=== PATIENT | female | born 1950 | race Caucasian/White ===

== ENCOUNTER 2023-06-13 13:56 | Outpatient (AMB) | payer MEDICARE, SELFPAY ==
--- NOTE | 2023-06-13 14:33 | HO.SPINEOV ---
Intake Intake Visit Reasons: lower back pain Intake Note: Ms. Troy is here today c/o low back pain. MRI done @ [facility]. Gas Engineer Required: No Assessment & Plan Assessment & Plan (1) Lumbar stenosis with neurogenic claudication: Code(s): M48.062 - Spinal stenosis, lumbar region with neurogenic claudication Plan Dear colleague Thank you for referring Janna Troy to the office today with a chief complaint of bilateral leg pain with walking and standing. HPI: This 73-year-old female is complaining of bilateral leg pain with walking and standing for more than a year. The symptoms started after a hip replacement. She can only stand for short periods of time or work for short distances before she has to sit down. She takes a scooter in the grocery store nowadays to avoid walking. 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 Sitting down or laying down relieves her symptoms. She denies numbness or weakness. She saw a service center coordinator who told her was SI joint related. PMH: Hypertension, hypothyroidism, left hip replacement, hysterectomy, appendectomy Medications: Levothyroxine, omeprazole, spironolactone, warfarin, metoprolol, gabapentin Allergies: NKDA Social history: She lives with her son and 2 grandchildren. She has a nonsmoker Physical Exam: Pleasant female. She ambulates with a cane. Neurological exam reviews no deficits from motor sensation or reflexes. Straight leg raise is negative bilaterally. Radiological Studies: MRI done at [facility] on on 10/05/2022 shows moderate central spinal stenosis at L3-4 and L4-5. My observation is in disagreement with the MRI report. Impression/Plan: This 73-year-old female suffering from neurogenic claudication due to lumbar spinal stenosis L3-4 and L4-5. I offered her a lumbar laminotomy of those levels. She wants to discuss my plan with you and will return to my clinic if she wants to proceed. Thank you for allowing me to participate in your patients care. total time spent was 50 minutes in counseling ,coordination of plan, personal review of imaging, surgical decision making and subsequent plan Lee Warren MD, PhD Spine Fellowship Trained Neurosurgeon Director, [facility] Coding Level of Care Code New Pt Level 4 (39142) Diagnoses Lumbar stenosis with neurogenic claudication M48.062
== END 2023-06-13 15:49 | disposition home or self-care (01) ==
PROVIDERS: PCP Internal Medicine; Referring Provider Internal Medicine; Visit Provider Neurological Surgery
DX: M48.062 Spinal stenosis, lumbar region with neurogenic claudication (principal)
CPT/HCPCS: 99204

== ENCOUNTER → 2023-06-13 13:56 | Outpatient (BNVA) | payer MEDICARE, SELFPAY | PROVIDERS: PCP Internal Medicine; Referring Provider Internal Medicine; Visit Provider Neurological Surgery | DX: M48.062 Spinal stenosis, lumbar region with neurogenic claudication (principal) | CPT/HCPCS: 99202 ==

== ENCOUNTER 2023-08-01 13:25 | Outpatient (AMB) | payer MEDICARE, SELFPAY ==
--- NOTE | 2023-08-01 13:31 | MHC.OFFVIS ---
Intake Intake Visit Reasons: follow up Physiotherapist'S Assistant Required: No Assessment & Plan Assessment & Plan (1) Lumbar stenosis with neurogenic claudication: Code(s): M48.062 - Spinal stenosis, lumbar region with neurogenic claudication Plan Janna is a pleasant 73-year-old female who comes in today as a follow-up after being initially evaluated by the attending neurosurgeon Dr. Warren. After he reviewed her films and history/physical he offered her a L3-4, L4-5 laminotomy to address her spinal stenosis. At the time (06/13/23) Janna reported that she wanted to take some time to think about it and review her options. She states that she returns to our office today in follow-up because her bilateral leg pain and pain with walking continues to worsen on a day-to-day basis. She feels she is ready to undergo a surgical solution to help solve her problem. We again discussed the L3-4 and L4-5 laminotomy that was offered by Dr. Warren last month. She is agreeable to this. I had her scheduled for 10/11/2023 for this surgery. She brought her films from [facility] and I left them in an envelope on Dr. Warren desk. She understands that she will need to undergo a pre anesthesia check appointment which will be provided to her prior to her surgery, and she will be mailed out an envelope with details of her procedure. Janna was given risk and benefits of surgery including but not limited to infection, hematoma, nerve injury, durotomy, weakness, bowel/bladder injury, persistent pain, as well as the option to continue with conservative treatment and patient wishes to proceed with surgery. She is aware they should stop her Warfarin 5 days prior to surgery, and should stop all NSAIDs 7 days before surgery. All questions were answered to the best of our ability. If there is anything about this patients medical history that we have overlooked or concerns you have about us proceeding with surgery we would appreciate any input you can offer. Total amount of time spent in this visit was 20 minutes in discussion of symptoms, MRI imaging results and subsequent plan of care Jef Warren MD,PhD [facility] Coding Level of Care Code Est Pt Level 3 (58494) Diagnoses Lumbar stenosis with neurogenic claudication M48.062
== END 2023-08-01 13:58 | disposition home or self-care (01) ==
PROVIDERS: PCP Internal Medicine; Visit Provider Physician Assistant
DX: M48.062 Spinal stenosis, lumbar region with neurogenic claudication (principal)
CPT/HCPCS: 99213

== ENCOUNTER → 2023-08-01 13:25 | Outpatient (BNVA) | payer MEDICARE, SELFPAY | PROVIDERS: PCP Internal Medicine; Visit Provider Physician Assistant | DX: M48.062 Spinal stenosis, lumbar region with neurogenic claudication (principal) | CPT/HCPCS: 99212 ==

== ENCOUNTER 2023-09-24 14:28 | Outpatient (REF) | payer MEDICARE, SELFPAY ==
[2023-09-24 14:45] LABS: MANUAL DIFF FLAG NO
[2023-09-24 14:55] LABS: Basophils Absolute Auto 0.1 X10*3/uL (0.0-0.2); Basophils Percent Auto 0.9 % (0-2); Eosinophils Absolute Auto 0.2 X10*3/uL (0.0-0.4); Eosinophils Percent Auto 3.8 % (0-4); Hematocrit 39.4 % (37.0-47.0); Imm Gran Abs Auto 0.01 X10*3/uL (0.00-0.03); Imm Gran Pct Auto 0.2 % (0.0-0.4); Lymphocytes Percent Auto 19.7 % (20-40); Mean Corpuscular Volume 90.8 fL (80.0-98.0); Mean Platelet Volume 9.9 fL (9.4-12.3); Monocytes Absolute Auto 0.5 X10*3/uL (0.1-1.2); Monocytes Percent Auto 8.7 % (2-11); Neutrophils Absolute Auto 3.5 x10*3/uL (2.0-8.3); Neutrophils Percent Auto 66.7 % (45-73); Platelet Count 360 X10*3/uL (160-400); Red Blood Count 4.34 X10*6/uL (4.20-5.50); Red Cell Distribution Width 13.4 % (11.0-16.0); White Blood Count 5.3 X10*3/uL (4.8-10.8)
[2023-09-24 15:33] LABS: Alanine Aminotransferase 16 U/L (0-31); Albumin Level 4.1 g/dL (3.5-5.0); Alkaline Phosphatase 53 U/L (39-117); Anion Gap 15 (12-20); Aspartate Amino Transferase 17 U/L (5-31); Bilirubin Total 0.6 mg/dL (0.0-1.0); Blood Urea Nitrogen 18 mg/dL (9-16); Calcium 9.9 mg/dL (8.4-10.2); Carbon Dioxide 24 mmol/L (22-29); Chloride 103 mmol/L (96-108); Estimated Glomerular Filt Rate 38; Glucose Random 97 mg/dL (60-115); Potassium 4.8 mmol/L (3.3-5.1); Sodium 137 mmol/L (135-145); Total Protein 7.9 g/dL (6.5-8.0)
[2023-09-24 17:53] LABS: Estimated Average Glucose 126 mg/dL
== END 2023-09-24 14:29 | disposition home or self-care (01) ==
LOC: HO.LAB 14:28
PROVIDERS: PCP Internal Medicine; Visit Provider Internal Medicine
DX: E11.9 Type 2 diabetes mellitus without complications (principal); K50.90 Crohn's disease, unspecified, without complications
CPT/HCPCS: 36415; 80053; 83036; 85025

== ENCOUNTER → 2023-09-27 13:09 | Outpatient (BNV) | payer MEDICARE, SELFPAY | PROVIDERS: PCP Internal Medicine; Visit Provider Internal Medicine | DX: R00.1 Bradycardia, unspecified (principal); I45.10 Unspecified right bundle-branch block | CPT/HCPCS: 93010 ==

== ENCOUNTER → 2023-10-08 09:04 | Outpatient (REF) | payer MEDICARE, SELFPAY ==
--- NOTE | 2023-10-08 09:14 | CA_ITS ---
Transthoracic Echocardiogram Patient (Last, First, Middle): Janna Troy, Gender: Female Date of : 1950 Age: 73 Procedure Date: 10/08/2023 Procedure Type: Transthoracic Echocardiogram Location: OP Height: 152.4 cm Weight: 92.53 kg BSA: 1.88 m2 Heart Rate: 51 bpm BP: 120 / 90 mmHg Software Business Analyst: MARIA R Referring MD: Lee Warren MD PhD Symptoms: I49.9 CA ARRHYTHMIA Study Quality: Fair ECG Rhythm: Bradycardia Conclusions: - The left ventricular systolic function is normal. The calculated ejection fraction is 57% by biplane method. - There is mildly increased left ventricular wall thickness. - There is mild mitral valve regurgitation. Findings Left Ventricle Normal left ventricular cavity size. There is mildly increased left ventricular wall thickness. The left ventricular systolic function is normal. The calculated ejection fraction is 57% by biplane method. There is no evidence of regional wall motion abnormalities. Diastolic function is normal for age. LV peak GLS -16.1% (slightly reduced). Right Ventricle Normal right ventricular cavity size. There is mildly decreased right ventricular systolic function. Atria The left atrium is mildly dilated. The right atrium is normal in size. Aortic Valve There is a normal trileaflet aortic valve. There is no aortic valve stenosis. There is no aortic valve regurgitation. Mitral Valve The mitral valve appears normal. There is mild mitral valve regurgitation. There is no mitral valve stenosis. Pulmonic Valve The pulmonic valve is likely normal. Tricuspid Valve Normal tricuspid valve structure. There is trace tricuspid valve regurgitation. There is no evidence of pulmonary hypertension. Great Vessels The asc aorta is normal in size. Venous The inferior vena cava is normal in size and collapses greater than 50% with inspiration. Pericardium/Pleural There is no evidence of pericardial effusion. Prior Study Comparison No prior study available for comparison. Measurements 2D Linear Measurements IVSd: 1.14 0.6-0.9/0.6-1.0 cm LVIDd: 4.91 3.9-5.3/4.2-5.9 cm LVIDd Index: 2.61 2.4-3.2/2.2-3.1 cm/m2 LVIDs: 3.47 2.0-3.6 cm LVPWd: 1.03 0.7-1.1 cm LA Diam: 5.10 2.7-3.8/3.0-4.0 cm LAIDs Index: 2.71 1.5-2.3 cm/m2 LV Mass: 245.99 67-162/88-224 g LV Mass Index: 130.84 43-95/49-115 g/m2 LVOT Diam: 2.10 3.0+(-)1.3 cm 2D Systolic Function EF 4C: 50.00 >55% EF 2C: 62.50 >55% EF BiP: 56.50 >55% Mitral Valve MV Pk E: 0.62 MV PK A: 0.78 MV Decel Time: 238.00 E/A: 0.80 E'Lateral: 6.85 E'Medial: 4.57 E/E' Med: 13.50 E/E' Lat: 9.00 PHT: 70.00 MVA PHT: 3.14 Decel Lawrence: 2.59 Aortic Valve AoV Pk Liam: 1.26 AoV Mn Liam: 0.89 AoV VTI: 0.32 AoV Pk Grad: 6.00 Aov Mn Grad: 4.00 CHRISTOPHER Cont.VTI: 2.17 LVOT LVOT Pk Liam: 0.78 LVOT Mn Liam: 0.55 LVOT VTI: 0.20 LVOT Pk Grad: 2.00 LVOT Mn Grad: 1.00 LVOT Diam: 2.10 LVOT Area: 3.46 Diastolic Function MV Pk E: 0.62 MV Pk A: 0.78 E/A: 0.80 E'Medial: 4.57 E/E' Med: 13.50 E' Laterial: 6.85 E/E' Lat: 9.00 Right Ventricle TAPSE (mm): 18.40 TVS' Liam: 8.16 Tricuspid Valve TR Pk Liam: 2.42 TR Pk Grad: 23.00 RA Press: 3.00 RVSP: 26.00 Great Vessels Aorta Sinus of Valsalva: 3.10 2.0-3.5 cm Ao Asc: 3.40 2.1-3.4 cm Pulmonary Valve PV Pk Liam: 0.78 Peak PV Grad: 2.00 Updated in Other Vendor System with Status of Final Jhony Cabrera MD electronically signed on 10/08/2023 11:28:13 AM with status of Final
== END ==
LOC: HO.CARD 09:04
PROVIDERS: PCP Internal Medicine; Visit Provider Neurological Surgery
DX: I49.9 Cardiac arrhythmia, unspecified (principal)
CPT/HCPCS: 93306; 93356

== ENCOUNTER → 2023-10-08 09:14 | Outpatient (BNV) | payer MEDICARE, SELFPAY | PROVIDERS: PCP Internal Medicine; Visit Provider Internal Medicine | DX: I34.0 Nonrheumatic mitral (valve) insufficiency (principal) | CPT/HCPCS: 93306; 93356 ==

== ENCOUNTER 2023-10-11 09:00 | Day surgery (SDC) | payer MEDICARE, SELFPAY ==
[2023-09-27 12:30] VITALS: BP 124/59; PULSE 58; RESP 16; O2SAT 96; BMI 39.8
--- NOTE | 2023-09-27 13:09 | ECG_ITS ---
Test Reason : preop Blood Pressure : / mmHG Vent. Rate : 058 BPM Atrial Rate : 058 BPM P-R Int : 172 ms QRS Dur : 106 ms QT Int : 418 ms P-R-T Axes : 048 -17 042 degrees QTc Int : 410 ms Sinus bradycardia Incomplete right bundle branch block ST & T wave abnormality, consider anterolateral ischemia Abnormal ECG No previous ECGs available Referred By: Rosie King Electronically Signed By:MAGUI THOMPSON
--- NOTE | 2023-10-10 09:34 | P.CONAN_ITS ---
Documented by User: Comfort Lundberg NP 10/10/23 09:43 HPI - Anesthesia Eval Consult details Narrative: 73yo F for L3-4,L4-[address] King in [facility] for PE/DVT Moderate risk STOP-Bang [facility] Active Problems Active Problems: All Active Problems Lumbar stenosis with neurogenic claudication (Acute) Past Medical History Medical History Walker as ambulation aid Arthritis Hx of transfusion of whole blood Hypothyroidism Hiatal hernia GERD (gastroesophageal reflux disease) HTN (hypertension) Anxiety Peripheral neuropathy Hx pulmonary embolism Hx of deep venous thrombosis Slow to wake up after anesthesia Hx of chronic ulcerative colitis Hx of skin cancer, basal cell Hx of cancer of uterus Surgical History Surgical History (Updated 09/27/23 @ 12:19 by Micheline Albarado, CLARICE) Hx of colonoscopy Hx of tonsillectomy Hx of appendectomy Hx of hysterectomy History of left hip replacement Social History Social History (Updated 09/27/23 @ 12:44 by Micheline Albarado RN) Household Members: Family Housing: House Are you a primary health care coordinator to a significant other at home: No Do you presently have visiting nurse or other home services: No Patient Tobacco Use Status: Never used Tobacco Use of substances other than those prescribed or required for medical reasons: No Have you been hit, kicked, punched, or otherwise hurt by someone within the past year? If so, by whom?: No Spiritual Healthcare Practices: none Jehovah'S Witness Healthcare Practices: none Cultural Healthcare Practices: none Are you DNR?: No Advance Directives: No Advance Directives Information Provided: Yes Advance Directives on File: No Recently lost weight without trying: No Nutrition Risks: No Nutritional Risk Meds Allergies Allergy/AdvReac Type Severity Reaction Status Date / Time NSAIDS (Non-Steroidal Allergy Severe Weakness, Verified 09/27/23 12:13 Anti-Inflamma cannot move adhesive tape AdvReac Severe Blistering Verified 09/27/23 12:17 of skin, rash, all tape adhesives morphine AdvReac Severe Anxiety Verified 09/27/23 12:13 nitroglycerin AdvReac Severe Chest Verified 09/27/23 12:13 Pain, SOB Home Medications ?Medication ?Instructions ?Recorded ?Confirmed ?Last Taken ?Type gabapentin 100 mg capsule 300 mg PO BEDTIME 09/26/23 09/27/23 Unknown History levothyroxine 50 mcg tablet 50 mcg PO BEDTIME 09/26/23 09/27/23 Unknown History metoprolol succinate 100 mg 100 mg PO BEDTIME 09/26/23 09/27/23 Unknown History tablet,extended release 24 hr omeprazole 40 mg capsule,delayed 20 mg PO BEDTIME 09/26/23 09/27/23 Unknown History release spironolactone 50 mg tablet 50 mg PO BEDTIME 09/26/23 09/27/23 Unknown History apixaban 2.5 mg tablet (Eliquis) 2.5 mg PO BID 09/27/23 09/27/23 Unknown History Exam Height,Weight and Vital Signs: Height 5 ft Weight 92.533 kg Last Vital Signs Pulse 58 09/27/23 12:30 Resp 16 09/27/23 12:30 BP 124/59 L 09/27/23 12:30 Pulse Ox 96 09/27/23 12:30 O2 Del Method Room Air 09/27/23 12:30 Pertinent Lab Results Pertinent Lab Results: Laboratory Tests 09/24/23 14:38 WBC 5.3 Hgb 13.0 Hct 39.4 Plt Count 360 Sodium 137 Potassium 4.8 Chloride 103 Carbon Dioxide 24 BUN 18 H Creatinine 1.37 Narrative Narrative: EKG 09/2023 Vent. Rate : 058 BPM Atrial Rate : 058 BPM P-R Int : 172 ms QRS Dur : 106 ms QT Int : 418 ms P-R-T Axes : 048 -17 042 degrees QTc Int : 410 ms Sinus bradycardia Incomplete right bundle branch block ST & T wave abnormality, consider anterolateral ischemia Abnormal ECG No previous ECGs available ECHO 09/2023 Conclusions: - The left ventricular systolic function is normal. The calculated ejection fraction is 57% by biplane method. - There is mildly increased left ventricular wall thickness. - There is mild mitral valve regurgitation. Assessment and Plan Assessment Anesthesia Assessment: Chart Reviewed Documented by User: Daria De Luna MD 10/11/23 10:17 [facility] Past Medical History Medical History Walker as ambulation aid Arthritis Hx of transfusion of whole blood Hypothyroidism Hiatal hernia GERD (gastroesophageal reflux disease) HTN (hypertension) Anxiety Peripheral neuropathy Hx pulmonary embolism Hx of deep venous thrombosis Slow to wake up after anesthesia Hx of chronic ulcerative colitis Hx of skin cancer, basal cell Hx of cancer of uterus Family History Family history of problems with anesthesia: No Surgical History Surgical History (Updated 09/27/23 @ 12:19 by Micheline Albarado, CLARICE) Hx of colonoscopy Hx of tonsillectomy Hx of appendectomy Hx of hysterectomy History of left hip replacement History of Problems with Anesthesia: No Social History Social History (Updated 09/27/23 @ 12:44 by Micheline Albarado RN) Household Members: Family Housing: House Are you a primary health care coordinator to a significant other at home: No Do you presently have visiting nurse or other home services: No Patient Tobacco Use Status: Never used Tobacco Use of substances other than those prescribed or required for medical reasons: No Have you been hit, kicked, punched, or otherwise hurt by someone within the past year? If so, by whom?: No Spiritual Healthcare Practices: none Jehovah'S Witness Healthcare Practices: none Cultural Healthcare Practices: none Are you DNR?: No Advance Directives: No Advance Directives Information Provided: Yes Advance Directives on File: No Recently lost weight without trying: No Nutrition Risks: No Nutritional Risk Meds Allergies Allergy/AdvReac Type Severity Reaction Status Date / Time NSAIDS (Non-Steroidal Allergy Severe Weakness, Verified 09/27/23 12:13 Anti-Inflamma cannot move adhesive tape AdvReac Severe Blistering Verified 09/27/23 12:17 of skin, rash, all tape adhesives morphine AdvReac Severe Anxiety Verified 09/27/23 12:13 nitroglycerin AdvReac Severe Chest Verified 09/27/23 12:13 Pain, SOB Home Medications ?Medication ?Instructions ?Recorded ?Confirmed ?Last Taken ?Type gabapentin 100 mg capsule 300 mg PO BEDTIME 09/26/23 09/27/23 Unknown History levothyroxine 50 mcg tablet 50 mcg PO BEDTIME 09/26/23 09/27/23 Unknown History metoprolol succinate 100 mg 100 mg PO BEDTIME 04/17/24 04/18/24 Unknown History tablet,extended release 24 hr omeprazole 40 mg capsule,delayed 20 mg PO BEDTIME 09/26/23 09/27/23 Unknown History release spironolactone 50 mg tablet 50 mg PO BEDTIME 09/26/23 09/27/23 Unknown History apixaban 2.5 mg tablet (Eliquis) 2.5 mg PO BID 09/27/23 09/27/23 Unknown History Exam Airway Mallampati Class: IV TM Dist: >3cm Neck ROM: Full Assessment and Plan Assessment Anesthesia Assessment: Anesthesia Plan Discussed Final Anesthetic Review Family History of Problems with Anesthesia: No History of Problems with Anesthesia: No NPO: Yes ASA Class: III Final Preanesthetic Review: No Changes in Pt Med Stat, Meds/Allgs Chart Reviewed, Consent Obtained/Reviewed and Anes Risks/Benef Reviewed Patient Risk: Intermediate Procedure Risk: Intermediate Anesthetic Plan Anesthetic Plan: GA Disposition: Standard PACU
[2023-10-11] VITALS (16 sets, daily range): BP systolic 107–154; BP diastolic 42–78; PULSE 52–75; RESP 12–16; TEMP 36.1–36.6; O2SAT 94–100; BMI 40.2
--- NOTE | ~2023-10-11 | FL_ITS ---
EXAMINATION: XR FLUOROSCOPY WITH IMAGES CLINICAL INFORMATION: L3-L4, L4-L5 laminectomy, prone, right-sided approach. COMPARISON: None available. TECHNIQUE: Fluoroscopy Supervised By Dr. Kofi Warren. Fluoroscopy Time: 0 Cumulative Dose: 4.83 mGy-cm DAP: 0.744 Gy-cm2 Fluoroscopic Images: 0 FINDINGS: Surgical hardware overlies posterior aspect of lower lumbar spine on lateral view. Please refer to operative report for more detailed evaluation. FL/FL guidance in OR IMPRESSION: Fluoroscopy provided for intraoperative guidance. Please for to operative report for more detailed evaluation.
--- NOTE | 2023-10-11 07:00 | MHC.SHP ---
Pre-Procedural Eval Section A - 24 Hr Update-Section A only Date of Service: 10/11/23 The patient is an INPATIENT: No Changes since office visit: No Cold of Flu in the past 2 weeks, No New Medical Problems, No Changes in Medication and No Patient answered all questions The patient has been examined within 24 hours of the surgical procedure. The History & Physical has been completed within 30 days and I have reviewed it.: No Section B - Complete if H&P > 30 days Chief Complaint: Spinal stenosis, lumbar region with neurogenic Allergies: Allergies Allergy/AdvReac Type Severity Reaction Status Date / Time NSAIDS (Non-Steroidal Allergy Severe Weakness, Verified 09/27/23 12:13 Anti-Inflamma cannot move adhesive tape AdvReac Severe Blistering Verified 09/27/23 12:17 of skin, rash, all tape adhesives morphine AdvReac Severe Anxiety Verified 09/27/23 12:13 nitroglycerin AdvReac Severe Chest Verified 09/27/23 12:13 Pain, SOB Review of Systems Sugical H&P ROS: Negative: Constitution, Cardiovascular, Respiratory, Neurological, Psychiatric, Hem-Onc, Allergic/Immunologic, Gastrointestinal, Genitourinary, Musculoskeletal, Integumentary, Endocrine and Eyes/Ears/Nose/Throat Exam Surgical H&P Exam: Not Evaluated: HEENT, Not Evaluated: Heart, Not Evaluated: Lungs, Not Evaluated: Extremities, Not Evaluated: Abdomen, Not Evaluated: Skin and Not Evaluated: Neurological Plan Diagnosis/Plan: Unchanged L3-4, L4-5 decompression Time Spent With Patient Time: Total time managing care of this patient today _6___ minutes.
[2023-10-11] MEDS: Lactated Ringers 1,000 ML 100 ML IVCONT (10:14)
[2023-10-11] MEDS: Gabapentin 300 MG CAPSULE PO (10:15)
--- NOTE | 2023-10-11 10:50 | P.DS_ITS ---
DS: Providers Provider Date of Service: 10/11/23 Date of discharge: 10/11/23 Primary care physician: Akshat Jacobs MD Admitting clinician: Lee Warren DS: Diagnosis Discharge Diagnosis (1) Lumbar stenosis with neurogenic claudication: Status: Acute DS: Summary Time Attestation Discharge Coordination Time (in mins): 6 Quality: Safe Use of Opioids Does Pt have an Active Cancer Diagnosis on the Problem List?: No Quality: Stroke Does the patient have a stroke diagnosis?: No Physical Exam Vital Signs: Vital Signs: Last Vital Signs Temp 97.9 F 10/11/23 09:45 Pulse 52 10/11/23 09:45 Resp 16 10/11/23 09:45 BP 154/70 H 10/11/23 09:45 Pulse Ox 97 10/11/23 09:45 O2 Del Method Room Air 10/11/23 09:45 BMI result Body Mass Index 40.2 Discharge Plan Discharge Patient Disposition: Home, Self-Care Referrals: Akshat Jacobs MD [Primary Care Provider] - 1 Week Discharge Medications: New docusate sodium [Colace] 100 mg capsule 100 mg PO BID Qty: 20 0RF oxycodone 5 mg tablet 5 mg PO Q4H PRN (Reason: pain) Qty: 30 0RF Rx Instructions: Partial Fill upon patient request. Continued metoprolol succinate 100 mg tablet extended release 24 hr 100 mg PO BEDTIME omeprazole 40 mg capsule,delayed release(DR/EC) 20 mg PO BEDTIME levothyroxine 50 mcg tablet 50 mcg PO BEDTIME gabapentin 100 mg capsule 300 mg PO BEDTIME spironolactone 50 mg tablet 50 mg PO BEDTIME Held Eliquis 2.5 mg Tablet 2.5 mg PO BID Hold Instructions: Resume on 10/14/23. you may resume post op day 3 Discharge Orders: Discharge Order (Routine); Ordered 10/11/23 Ordered By: Owen Pinto Diet: Advance to usual diet Activity on Discharge: As tolerated Activity Restrictions/Additional Instructions: After your spinal surgery we ask you to observe the following restrictions/guidelines: Activity: It is normal to feel some discomfort as you increase your activity, but that will improve with time. We ask you avoid heavy lifting or acitivities that cause pain. As a general rule, 8lbs is a safe limit for lifting right after surgery. Walk as much as you feel comfortable but not to exhaustion. You will feel extra tired the first few days after surgery. Stay well hydrated. It is OK to walk up and down stairs You may return to driving when you are off narcotics (such as vicodin, oxycodone, dilaudid, etc), and you are back to normal functional capacity. If you have any concerns please check with office before driving. Return to work is specific to each patient and each surgery, so please speak with your doctor/PA at first follow up. Please bring paperwork such as FMLA at that time if you need it filled out. Medications: You may resume Eliquis 3 days after surgery For optimum pain control, it is best to start with a combination of 500 mg of Tylenol every 4 hours with 600 mg of Motrin every 8 hours, and use narcotics as needed in between for breakthrough pain. We will give you a short supply of narcotics after surgery (usually one weeks worth). If you need more please call the office but do not use more than prescribed. You will need to give our office 48 hours notice if you need narcotics refilled and we do not fill narcotics on weekends or evenings. If you are on a narcotic, it is a good idea to take a stool softener such as colace or senna to avoid constipation If you take blood thinner such as aspirin, Plavix, Coumadin, Effient, Eliquis etc for conditions such as Afib, DVT, Pulmonary embolus, coronary disease, stents etc please speak with your surgeon about specific details as to when you can resume these medications. You can resume NSAIDs on post op day 1 (eg: Motrin, Naproxen, etc). Follow up: Please call the office, , after surgery to arrange a 3 week follow up for wound check. Wound Care: You may remove your dressing on the first day after surgery. ?You may ?leave open to air. Please do not remove the steri strips underneath. they will fall off on their own in one week. IT IS NORMAL FOR THE WOUND TO OOZE OR BE BLOODY FOR A FEW DAYS AFTER SURGERY. ?IF THIS HAPPENS JUST PLACE NEW DRESSING OVER IT TO AVOID STAINING CLOTHES. You may shower on post op day # 1 We ask that you do not let the water soak the wound. If it does get wet, just towel dry lightly. Please do not scrub your incision or place any type of chemical/ointment on the wound. No tub baths, pools or jacuzzis for one month. If you have any leaking or redness from your wound, or fevers, please call office Print Language: American
--- NOTE | 2023-10-11 11:45 | P.OP_ITS ---
Operative Note Operative Note Date of Service: 10/11/23 Narrative: Preoperative Diagnosis: L3-4 L4-5 spinal stenosis/lateral recess stenosis Operation: L3-4 L4-5 Laminotomy, Partial facetectomy and foraminotomy with use of microscope Consent Informed Consent was obtained for this operation. I have explained the nature, purpose and benefits of the operation. I have discussed the risks and benefit of the operation including possible complications or adverse events with patient/family. Alternative(s) were discussed with the patient with their relative benefits and risks as well as the consequences of not accepting the operation were included in obtaining consent. Surgeon: MAJO LOPEZ MD, PHD Procedure Assisted By: Owen Greenwood Description of Procedure This patient is suffering from neurogenic claudication. MRI shows moderate stenosis L3-4 and L4-5. The patient was offered a decompression. The procedure complications were explained. The patient was consented. The patient was brought to the operating room and endotracheally intubated. The patient was turned in prone position on the Beck frame. Prep and drape was done followed by timeout. The Physician customer support assistant provided access. A mid lumbar incision was made followed by release of the paravertebral muscle on the right side to expose the L3-4 and L4-5 lamina and facet joints. An intraoperative x-ray was obtained to confirm the correct level. The microscope was brought in. I took over the procedure. The high-speed drill was used to do a L3-4 laminotomy until flavum ligament was reached. A #2 Kerrison was used to expand the laminotomy near flush to the pedicles and to include a partial facetectomy. The flavum ligament was opened and resected with a #3 Kerrison to decompress the underlying thecal sac. The flavum ligament was removed to decompress the lateral recess and the exiting L4 nerve roots. The stenosis was less than expected. I was able to reach contralaterally with a long nerve hook and did not feel any severe compression on the contralateral side. I turned my attention to the L4-5 area. An L4-5 hemilaminotomy was done. The flavum ligament was opened and resected to expose the underlying thecal sac and exiting nerve root. The exiting nerve root was unroofed from flavum ligament but again no severe compression was found. I turned the patient contralaterally. I undercut the spinous process and remote flavum ligament from the contralateral side to decompress that side. The microscope was removed. Hemostasis was done. The physician customer support assistant close the Incision in 2 layers. Steri-Strips were used to approximate incision. An OpSite with Tegaderm was used to cover the incision. All sponge needle counts were correct. Patient was extubated and transported in stable is to recovery room. Anesthesia: General Estimated Blood Loss (ml): 30 mL Complications: None Duration of Surgery: Under 60 Minutes Postoperative Plan: Discharge to home
[2023-10-11] MEDS: fentaNYL citrate/PF 100 MCG/2 ML VIAL 50 MCG IVPUSH ×2 (12:45→13:15)
== END 2023-10-11 15:34 | disposition home or self-care (01) ==
PROVIDERS: PCP Internal Medicine; Visit Provider Neurological Surgery
PROC: (CPT 63047; principal; 2023-10-11 11:30)
DX: M48.062 Spinal stenosis, lumbar region with neurogenic claudication (principal); G62.9 Polyneuropathy, unspecified; I10 Essential (primary) hypertension; Z86.711 Personal history of pulmonary embolism; Z86.718 Personal history of other venous thrombosis and embolism; M19.90 Unspecified osteoarthritis, unspecified site; Z79.01 Long term (current) use of anticoagulants; Z79.899 Other long term (current) drug therapy; Z99.89 Dependence on other enabling machines and devices; Z88.6 Allergy status to analgesic agent; Z88.5 Allergy status to narcotic agent; Z88.8 Allergy status to other drugs, medicaments and biological substances; L23.1 Allergic contact dermatitis due to adhesives; Z98.890 Other specified postprocedural states
CPT/HCPCS: 63047; 63048; 93005; J0131; J0690; J1100; J2405; J2704; J3010

== ENCOUNTER → 2023-10-11 09:00 | Outpatient (BNV) | payer MEDICARE, SELFPAY | PROVIDERS: PCP Internal Medicine; Visit Provider Neurological Surgery | DX: M48.062 Spinal stenosis, lumbar region with neurogenic claudication (principal) | CPT/HCPCS: 63047; 63048; 99499 ==

== ENCOUNTER 2023-11-01 10:38 | Outpatient (AMB) | payer MEDICARE, SELFPAY ==
--- NOTE | 2023-11-01 10:02 | A.SPINEOV_ITS ---
Intake Visit Reasons: 1st post op Intake Note: Ms. Troy is here today for her 1st post-op appointment. Legislative Aide Required: No Allergies NSAIDS (Non-Steroidal Anti-Inflamma Allergy (Severe, Verified 09/27/23 12:13) Weakness, cannot move adhesive tape Adverse Reaction (Severe, Verified 09/27/23 12:17) Blistering of skin, rash, all tape adhesives morphine Adverse Reaction (Severe, Verified 09/27/23 12:13) Anxiety nitroglycerin Adverse Reaction (Severe, Verified 09/27/23 12:13) Chest Pain, SOB Assessment & Plan Assessment & Plan (1) Status post lumbar spine surgery for decompression of spinal cord: Code(s): Z98.890 - Other specified postprocedural states Category: Medical Plan Procedure: L3-4 L4-5 Laminotomy, Partial facetectomy and foraminotomy Janna comes in today for her 1st postoperative visit. Unfortunately, Janna continues to report the same symptoms she had preoperatively. She has quite a bit of back pain with shooting pains into her bilateral lower extremities. She seems very discouraged during this visit. I attempted to encourage her that she is likely suffering from postoperative inflammation and reiterated that she has only a few weeks out from surgery. I discussed the surgery that she had using the spine model, and discussed postoperative inflammation and the postoperative healing course. It seems she has not been ambulating outside of her home very much, so she was encouraged to do so as this will help her postoperative healing course. I answered all of her questions to the best of my ability. No new neurological deficits. Patient ambulates with walker. Posterior incision site is closed, well healed, with no signs of drainage. We will follow-up with the patient in 6 weeks for her 2nd postoperative visit. Jef Warren MD,PhD [facility] Coding Level of Care Code Global (08682) Diagnoses Status post lumbar spine surgery for decompression of spinal cord Z98.890
== END 2023-11-01 11:00 | disposition home or self-care (01) ==
PROVIDERS: PCP Internal Medicine; Visit Provider Physician Assistant
DX: Z98.890 Other specified postprocedural states (principal)
CPT/HCPCS: 99024

== ENCOUNTER → 2023-11-01 10:38 | Outpatient (BNVA) | payer MEDICARE, SELFPAY | PROVIDERS: PCP Internal Medicine; Visit Provider Physician Assistant | DX: Z48.89 Encounter for other specified surgical aftercare (principal); Z98.890 Other specified postprocedural states | CPT/HCPCS: 99212 ==

== ENCOUNTER 2023-12-17 13:29 | Outpatient (AMB) | payer MEDICARE, SELFPAY ==
--- NOTE | 2023-12-17 13:31 | A.SPINEOV_ITS ---
Intake Visit Reasons: 2nd post-op Intake Note: Ms. Troy is here for her 2nd post op visit. Fancy Wire Drawer Required: No Allergies NSAIDS (Non-Steroidal Anti-Inflamma Allergy (Severe, Verified 12/17/23 13:33) Weakness, cannot move adhesive tape Adverse Reaction (Severe, Verified 12/17/23 13:33) Blistering of skin, rash, all tape adhesives morphine Adverse Reaction (Severe, Verified 12/17/23 13:33) Anxiety nitroglycerin Adverse Reaction (Severe, Verified 12/17/23 13:33) Chest Pain, SOB Assessment & Plan Assessment & Plan (1) Status post lumbar spine surgery for decompression of spinal cord: Code(s): Z98.890 - Other specified postprocedural states Category: Surgical Plan Operation: L3-4 L4-5 Laminotomy, Partial facetectomy and foraminotomy Janna comes in today for her 2nd postoperative visit. When I initially entered the room Janna seen quite distraught, and stated she feels exactly the same as she has since prior to surgery. What I began questioning about her symptoms she did admit that her shooting radiculopathy down the posterior aspect of her legs has subsided. She predominantly has difficulties with ambulation now, accompanied by some tenderness in her low back. She was encouraged that her issues with ambulation can continue to improve, however she will need to begin trying to be more active. Today she reports that it has been too hot for her to go outside and walk around the all. She is only really ambulating around her home. I believe her difficulties with ambulation may be directly related to her lack of mobility. I would like to have Janna sent for 6 weeks of physical therapy specifically for mobility, ADLs and very light strength training. No new neurological deficits. The patient ambulates with the assistance of a cane. I would like Janna to follow up with Dr. Warren after she completes her course of physical therapy so she may discuss potential avenues to pursue going forward for both healing, rehabilitation, and surgery. I did inform her that increasing her mobility will be of utmost importance to her recovery, and that her recovery can take all the way up to a year for her to see maximum benefit from the surgery. Jef Warren MD,PhD [facility] Orders: Orders PT Evaluation and Treatment Today Z98.890 - Other specified postprocedural states Coding Level of Care Code Global (99437) Diagnoses Status post lumbar spine surgery for decompression of spinal cord Z98.890
== END 2023-12-17 13:56 | disposition home or self-care (01) ==
PROVIDERS: PCP Internal Medicine; Visit Provider Physician Assistant
DX: Z98.890 Other specified postprocedural states (principal)
CPT/HCPCS: 99024

== ENCOUNTER → 2023-12-17 13:29 | Outpatient (BNVA) | payer MEDICARE, SELFPAY | PROVIDERS: PCP Internal Medicine; Visit Provider Physician Assistant | DX: Z48.89 Encounter for other specified surgical aftercare (principal) | CPT/HCPCS: 99212 ==

== ENCOUNTER 2024-09-10 12:09 | Outpatient (REF) | payer OTHER, SELFPAY ==
[2024-09-10 19:32] LABS: Erythrocyte Sedimentation Rate 25 MM/HR (0-20)
== END 2024-09-10 12:10 | disposition home or self-care (01) ==
LOC: HO.MANLDS 12:09
PROVIDERS: Visit Provider Internal Medicine
DX: M35.3 Polymyalgia rheumatica (principal)
CPT/HCPCS: 36415; 85652

== ENCOUNTER 2024-11-12 13:34 | Outpatient (REF) | payer OTHER, SELFPAY ==
--- OUTSIDE RECORDS SUMMARY | 2024-11-12 13:45 | XMS_ITS | Data Portability ---
Author Organization [facility], Telehealth Patient Home Address [address] [place] [address] Assessment Encounter Date Assessment Date Assessment LastModified by Organization Details LastModified Time 11/19/2023 11/19/2023 Patient presente d to office today for their Medicare Annual Wellness Visit. Education was provided on healthy nutrition, including a diet rich in fruits and vegetables, minimizing simple carbohydrates, salt, and saturated fats. Encouraged regular cardiovascular exercise such as walking at least 30 minutes daily, 5 times per week. Emphasized preventive health measures and educated pt on fall prevention and community-based lifestyle interventions to help reduce health risks and promote healthy living. Not available 11/16/2023 10:18:52 05/05/2024 05/05/2024 [id number] [place] [id number] (MARKETING TEAM LEAD) MDM MODERATE MUST MEET 2 OUT OF 3 ELEMENTS: PROBLEMS, DATA OR RISK ELEMENT 1: PROBLEMS ADDRESSED 1 OR MORE CHRONIC ILLNESS WITH EXACERBATION OR 2 OR MORE STABLE CHRONIC ILLNESSES OR 1 UNDIAGNOSED NEW PROBLEM OR 1 ACUTE ILLNESS W/SYMPTOMS OR 1 ACUTE COMPLICATED INJURY ELEMENT 2: DATA MUST MEET 1 OF 3 CATEGORIES CATEGORY 1: REVIEW OF PRIOR EXTERNAL NOTES, REVIEW OF RESULTS, ORDERING OF EACH TEST, ASSESSMENT REQUIRING INDEPENDENT HISTORIAN OR CATEGORY 2: INDEPENDENT INTERPRETATION OF TESTS BY ANOTHER PHYSICIAN OR SPECIALIST OR CATEGORY 3: DISCUSSION OF MGT OR TEST INTERPRETATION W/EXTERNAL PHYSICIAN OR SPECIALIST ELEMENT 3: RISK RISK OF COMPLICATIONS AND/OR MORBIDITY OR MORTALITY OF PATIENT MANAGEMENT PROVIDER MUST THOROUGHLY DOCUMENT EACH ELEMENT THAT IS COVERED Not available 05/05/2024 16:16:14 08/06/2024 08/06/2024 [id number] [place] [id number] (MARKETING TEAM LEAD) MDM MODERATE MUST MEET 2 OUT OF 3 ELEMENTS: PROBLEMS, DATA OR RISK ELEMENT 1: PROBLEMS ADDRESSED 1 OR MORE CHRONIC ILLNESS WITH EXACERBATION OR 2 OR MORE STABLE CHRONIC ILLNESSES OR 1 UNDIAGNOSED NEW PROBLEM OR 1 ACUTE ILLNESS W/SYMPTOMS OR 1 ACUTE COMPLICATED INJURY ELEMENT 2: DATA MUST MEET 1 OF 3 CATEGORIES CATEGORY 1: REVIEW OF PRIOR EXTERNAL NOTES, REVIEW OF RESULTS, ORDERING OF EACH TEST, ASSESSMENT REQUIRING INDEPENDENT HISTORIAN OR CATEGORY 2: INDEPENDENT INTERPRETATION OF TESTS BY ANOTHER PHYSICIAN OR SPECIALIST OR CATEGORY 3: DISCUSSION OF MGT OR TEST INTERPRETATION W/EXTERNAL PHYSICIAN OR SPECIALIST ELEMENT 3: RISK RISK OF COMPLICATIONS AND/OR MORBIDITY OR MORTALITY OF PATIENT MANAGEMENT PROVIDER MUST THOROUGHLY DOCUMENT EACH ELEMENT THAT IS COVERED Not available 08/06/2024 13:59:59 08/22/2024 08/22/2024 [id number] [place] [id number] (MARKETING TEAM LEAD) MDM MODERATE MUST MEET 2 OUT OF 3 ELEMENTS: PROBLEMS, DATA OR RISK ELEMENT 1: PROBLEMS ADDRESSED 1 OR MORE CHRONIC ILLNESS WITH EXACERBATION OR 2 OR MORE STABLE CHRONIC ILLNESSES OR 1 UNDIAGNOSED NEW PROBLEM OR 1 ACUTE ILLNESS W/SYMPTOMS OR 1 ACUTE COMPLICATED INJURY ELEMENT 2: DATA MUST MEET 1 OF 3 CATEGORIES CATEGORY 1: REVIEW OF PRIOR EXTERNAL NOTES, REVIEW OF RESULTS, ORDERING OF EACH TEST, ASSESSMENT REQUIRING INDEPENDENT HISTORIAN OR CATEGORY 2: INDEPENDENT INTERPRETATION OF TESTS BY ANOTHER PHYSICIAN OR SPECIALIST OR CATEGORY 3: DISCUSSION OF MGT OR TEST INTERPRETATION W/EXTERNAL PHYSICIAN OR SPECIALIST ELEMENT 3: RISK RISK OF COMPLICATIONS AND/OR MORBIDITY OR MORTALITY OF PATIENT MANAGEMENT PROVIDER MUST THOROUGHLY DOCUMENT EACH ELEMENT THAT IS COVERED Not available 08/22/2024 15:33:55 09/12/2024 09/12/2024 [id number] [place] [id number] (MARKETING TEAM LEAD) : MDM LOW MUST MEET 2 OF 3 ELEMENTS: PROBLEMS, DATA OR RISK ELEMENT 1: PROBLEMS ADDRESSED (LOW): 2 OR MORE SELF-LIMITED OR MINOR PROBLEMS OR 1 STABLE CHRONIC ILLNESS OR 1 ACUTE UNCOMPLICATED ILLNESS OR INJURY ELEMENT 2: DATA TO BE REVISED AND ANALYZED (LOW) MUST MEET 1 OF 2 CATEGORIES: CATEGORY 1. REVIEW OF PRIOR EXTERNAL NOTES/RESULTS, ORDERING OF TEST(S) CATEGORY 2. ASSESSMENT REQUIRING INDEPENDENT HISTORIAN(S) INCLUDE WHO THE HISTORIAN IS AND RELATION TO PT AND WHY PT IS UNABLE TO GIVE COMPLETE HISTORY ELEMENT 3: RISK (LOW) RISK OF COMPLICATIONS AND/OR MORBIDITY OR MORTALITY OF PATIENT MANAGEMENT PROVIDER MUST THOROUGHLY DOCUMENT ALL OF THE ELEMENTS COVERED Not available 09/12/2024 11:42:06 Plan of Treatment Reminders Order Date Submit Date Provider Last Modified By Organization Details Last Modified Time Details Appointments FOLLOW UP 15 2024 03:45P M DR CONDON Not available Not available Not available Lab ESR (erythroc yte sedimenta tion rate), blood 2024 025 [facility], [address] [place] [address], [id number], 09/11/2024 13:04:35 ESR (erythroc yte sedimenta tion rate), blood 2024 025 [facility], [address] [place] [address], [id number], 09/11/2024 13:04:35 C-reactiv e protein, quantitat dax, serum or plasma 2024 025 [facility] (Outpatient), [address] [place] [address], [id number], 08/06/2024 14:15:15 ESR (erythroc yte sedimenta tion rate), blood 2024 025 [facility] (Outpatient), [address] [place] [address], [id number], 08/21/2024 15:36:43 CBC 2023 024 [facility] (Outpatient), [address] [place] [address], [id number], 07/26/2024 07:21:51 CMP, serum or plasma 2023 024 [facility] (Outpatient), [address] [place] [address], [id number], 07/26/2024 08:49:29 TSH, serum or plasma 2023 024 [facility] (Outpatient), [address] [place] [address], [id number], 05/05/2024 16:28:08 C-reactiv e protein, quantitat dax, serum or plasma 2023 024 [facility] (Outpatient), [address] [place] [address], [id number], 08/21/2024 14:47:23 ESR (erythroc yte sedimenta tion rate), blood 2023 024 [facility] (Outpatient), [address] [place] [address], [id number], 07/26/2024 09:46:26 CK (creatine kinase), total, serum 2023 024 [facility] (Outpatient), [address] [place] [address], [id number], 05/05/2024 16:28:08 lipid panel, blood 2023 024 [facility] (Outpatient), [address] [place] [address], [id number], 11/19/2023 14:11:13 hemoglobi n, gastroint estinal, stool 2023 024 [facility] (Outpatient), [address] [place] [address], [id number], 11/19/2023 14:11:14 CBC w/ auto diff 2023 024 [facility] (Outpatient), [address] [place] [address], [id number], 11/19/2023 14:11:14 CMP, serum or plasma 2023 024 [facility] (Outpatient), [address] [place] [address], [id number], 11/19/2023 14:11:14 Referral dermatolo gist referral 2024 025 cesia Ling MD, [address], [place], [address], 10/13/2024 08:09:52 Procedures None recorded. Surgeries None recorded. Imaging XR, shoulder, 2 or more view 2023 024 [facility]rub[facility] Central Scheduling, [address], [place], [address], 05/13/2024 09:14:50 bone density 2023 024 h[facility] Not available 12/03/2023 08:29:42 Medication Orders prednison e 5 mg tablet 2024 025 [facility]/Pharmacy #2024, [address] [place], [address], 09/12/2024 11:39:41 gabapenti n 100 mg capsule 2024 025 [facility]/Pharmacy #2024, [address] [place], [address], 08/22/2024 15:32:45 prednison e 10 mg tablet 2024 025 [facility]/Pharmacy #2024, [address] [place], [address], 08/06/2024 14:08:25 Patient TargetsNo targets recorded. Patient Instructions Encounter Date Encounter Id Patient Instructions Last Modified By Organization Details Last Modified Time 11/19/2023 [id number] Discussed and explained advance directives such as standard forms to the . Face to face discussion lasted for a duration of ___ minutes. Not available 11/16/2023 10:18:52 08/06/2024 [id number] polymyalgia rheumatica: care instructions Not available 08/06/2024 14:08:23 crohn's disease: care instructions Not available 08/06/2024 14:08:23 08/22/2024 [id number] polymyalgia rheumatica: care instructions Not available 08/22/2024 15:32:43 gastroesophageal reflux disease (GERD): care instructions Not available 08/22/2024 15:35:48 high blood press ure: care instructions Not available 08/22/2024 15:35:48 learning about h igh blood pressure Not available 08/22/2024 15:35:48 gas and bloating : care instructions Not available 08/22/2024 15:32:43 09/12/2024 [id number] polymyalgia rheumatica: care instructions Not available 09/12/2024 11:39:11 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 [facility] (Medical Records) [address] [place] [address], [id number], 11/19/2023 14:00:34 Result Notes None recorded. Problems Name Problem SNOMED Code Status Onset Date Resolution Date Notes Provider Name and Address Organization Details Recorded Time Hypercho lesterol emia 34153202 Active 2018 Shy lugo [facility] 5 08:19:57 Osteoart hritis 064637302 Active 2018 Shy lugo [facility] 5 08:19:57 Neuropat hy 931657889 Active 2018 Shy lugo [facility] 5 08:19:57 Impaired fasting glycemia 960734501 Completed 201806/12/2021 Akshat Condon, DO [address] [place], [address], [facility] 2 13:43:14 Crohn's disease 22876775 Active 2018 Shy lugo [facility] 5 08:19:57 Neck pain 55786210 Active 2020 Akshat Condon, DO [address] [place] [address], [phone], [place] [facility] 1 14:31:26 Type 2 diabetes mellitus 21659770 Active 2021 Shy Estrada null, [facility] 5 08:19:57 Diastoli c dysfunct ion 4451687 Active 2021 Shy Estrada null, [facility] 5 08:19:57 Eczema 14072862 Active 2021 Shy Estrada null, [facility] 5 08:19:57 Seborrhe ic dermatit is of scalp 218453028 Active 2021 Shy Estrada null, [facility] 5 08:20:03 Osteopen ia 234237727 Active 2021 Shy Estrada null, [facility] 5 08:19:57 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 008920108 Active 2021 Shy Estrada null, [facility] 5 08:19:57 Low back pain 787609951 Active 2022 Akshat Condon, DO [address] [place] [address], [phone], [facility] 3 12:08:05 Dysplast ic nevus of skin 472123230 Active 2022 Shy Estrada null, [facility] 5 08:19:57 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 92255666 Active 2022 Shy Estrada null, [facility] 5 08:19:57 Degenera tive lumbar spinal stenosis 919196789 Active 2022 Shy Estrada null, [facility] 5 08:19:57 Diastoli c heart failure 355878884 Active 2023 Shy Estrada null, [facility] 5 08:19:57 Pulmonar y embolism with pulmonar y infarcti on 78247951770 02 Active 2023 [facility] 5 08:19:57 Constipa tion 19042602 Active 2023 [facility] 5 08:19:57 Muscle pain 09690141 Active 2023 [facility] 5 08:19:57 Bilatera l shoulder joint pain 93220839743 830102 Active 2023 [facility] 5 08:19:57 Polymyal devin rheumati ca 56345217 Active 2024 [facility] 5 08:19:57 Flatulen ce, eructati on and gas pain 156215600 Active 2024 [facility] 5 12:14:13 Vitamin deficien cy 04697380 [facility] 5 08:19:58 Hypothyr oidism 69305682 Active 2017 Shykvng Estrada [facility] 5 08:19:58 Essentia l hyperten eddy 18604646 [facility] 5 08:19:58 Gastroes ophageal reflux disease 817710201 [facility] 5 08:19:57 Chronic depressi on 711718481 Active 2017 Shykvng Estrada [facility] 5 08:19:57 Deep venous thrombos is 868917063 [facility] 5 08:19:57 Pulmonar y embolism 12099237 Active 2017 Shy Estrada [facility] 5 08:19:58 Problem Notes None recorded. Procedures Surgical History Date Name Laterality Status Provider Name and Address Organization Details Recorded Time 01/05/20 21 Cerumen Removal completed KAEL MACIAS [address] [place], [address], [facility] 01/04/2021 14:35:46 12/28/19 21 Cerumen Removal completed KAEL MACIAS [address] [place], [address], [facility] 12/27/2020 10:40:32 05/11/20 18 total replacement of hip completed Mirian Dumas NP, S [address] [place] [address], [phone], [facility] 09/02/2018 16:50:12 02/15/20 17 Colonoscopy completed Norma [facility] 06/23/2019 08:47:23 Appendectomy completed Norma [facility] 12/23/2019 16:15:09 Imaging Results None recorded. Procedure Notes None recorded. Medical Equipment None Reported. Allergies Allergen ID Allergen Name Allergen Category Reaction Reaction Severity Criticality Documentation Date Start Date Code Code System Note Provider Name and Address Organization Details Recorded Time 2797 morphine medicatio n Not available Not available Not available 07/24/2018 7052 RxNorm Elke Shea [facility] 9 16:25:22 2798 Non-stero idal anti-infl ammatory agent (product) medicatio n Not available Not available Not available 07/24/2018 01322 005 SNOMED Elke Shea [facility] 9 16:25:32 2799 nitroglyc shakira medicatio n Not available Not available Not available 07/24/2018 4917 RxNorm Elke Shea [facility] 9 16:25:44 2800 ibuprofen medicatio n Not available Not available Not available 07/24/2018 5640 RxNorm Elke Shea [facility] 9 16:25:58 2801 flurandre nolide medicatio n Not available Not available Not available 07/24/2018 4500 RxNorm Elke Shea [place] [facility] 9 16:32:06 Medications Name Sig Start Date Stop Date Status Note LastModified by Organization Details LastModified Time amoxicillin 500 mg capsule TAKE 1 CAPSULE BY MOUTH EVERY 8 HOURS FOR 10 DAYS 04/23 completed Not Available Not Available Not Available prednisone 10 mg tablet TAKE 4 TABLETS BY MOUTH EVERY DAY active Not Available Not Available No t Available ketoconazol e 2 % shampoo 09/12 completed Not Available Not Available Not Available Nizoral A-D 1 % shampoo APPLY SHAMPOO BY TOPICAL ROUTE EVERY 7 DAYS LATHER, RINSE, AND REPEAT 09/12 completed Not Available Not Available Not Available azithromyci n 250 mg tablet TAKE 2 TABLETS (500 MG) BY ORAL ROUTE ONCE DAILY FOR 1 DAY THEN 1 TABLET (250 MG) BY ORAL ROUTE ONCE DAILY FOR 4 DAYS 08/07 completed Not Available Not Available Not Available metoprolol succinate ER 100 mg tablet,exte nded release 24 hr TAKE 1 TABLET BY MOUTH EVERY DAY 2024 active Not Available Not Available Not Avai lable sertraline 100 mg tablet take 1 tablet by mouth once daily active Not Available Not Available No t Available prednisone 5 mg tablet TAKE 1 TABLET BY MOUTH EVERY DAY FOR 30 DAYS active Not Available Not Available No t Available omeprazole 40 mg capsule,del ayed release TAKE 1 CAPSULE BY MOUTH EVERY DAY active Not Available Not Available No t Available tramadol 50 mg tablet TAKE 1 TABLET BY MOUTH EVERY 4 HOURS NEEDED FOR PAIN 08/04 completed Not Available Not Available Not Available triamcinolo ne acetonide 0.1 % topical cream APPLY THIN LAYER TOPICALLY TO THE AFFECTED AREA TWICE DAILY 01/24 completed Not Available Not Available Not Available spironolact one 25 mg tablet Take 1 tablet every day by oral route for 30 days. 08/11 completed Not Available Not Available Not Available levothyroxi ne 25 mcg tablet take 1 tablet by mouth once daily 08/30 completed Not Available Not Available Not Available oxycodone-a cetaminophe n 5 mg-325 mg tablet TAKE 1 TABLET BY MOUTH EVERY 6 HOURS NEEDED FOR PAIN 05/04 completed Not Available Not Available Not Available amoxicillin 875 mg tablet TAKE 1 TABLET BY MOUTH EVERY 12 HOURS FOR 5 DAYS 05/04 completed Not Available Not Available Not Available levothyroxi ne 50 mcg tablet TAKE 1 TABLET BY MOUTH EVERY DAY active Not Available Not Available No t Available pantoprazol e 40 mg tablet,georgie yed release TAKE 1 TABLET BY MOUTH TWICE DAILY 30 TO 60 MINUTES BEFORE MEALS 05/04 completed Not Available Not Available Not Available lisinopril 10 mg tablet Take 1 tablet every day by oral route for 30 days. 09/09 completed Not Available Not Available Not Available warfarin 5 mg tablet TAKE 1 TABLET BY MOUTH EVERY DAY 08/07 completed Not Available Not Available Not Available metoprolol tartrate 50 mg tablet Take 1 tablet every day by oral route. 07/14 completed Not Available Not Available Not Available docusate sodium 100 mg capsule 09/12 completed Not Available Not Available Not Available omeprazole 20 mg capsule,del ayed release TAKE 1 CAPSULE BY MOUTH EVERY DAY 05/04 completed Not Available Not Available Not Available diltiazem CD 120 mg capsule,ext ended release 24 hr Take 1 capsule every day by oral route for 30 days. 03/26 completed Not Available Not Available Not Available gabapentin 100 mg capsule TAKE 1 CAPSULE BY MOUTH THREE TIMES A DAY FOR 30 DAYS active Not Available Not Available No t Available warfarin 1 mg tablet TAKE 2 TABLETS BY MOUTH EVERY DAY IN ADDITION TO THE 5MG TABLET DIRECTED BY YOUR PCP 08/04 completed Not Available Not Available Not Available triamcinolo ne acetonide 0.1 % lotion APPLY THIN LAYER TOPICALLY TO THE AFFECTED AREA TWICE DAILY 09/12 completed Not Available Not Available Not Available methylpredn isolone 4 mg tablets in a dose pack FOLLOW PACKAGE DIRECTION S 08/07 completed Not Available Not Available Not Available betamethaso ne dipropionat e 0.05 % lotion 01/24 completed Not Available Not Available Not Available spironolact one 50 mg tablet TAKE 1 TABLET BY MOUTH EVERY DAY active Not Available Not Available No t Available amoxicillin 875 mg-potassiu m clavulanate 125 mg tablet TAKE 1 TABLET BY MOUTH EVERY 12 HOURS FOR ACUTE OPIOID THERAPY DAYS 05/04 completed Not Available Not Available Not Available oxycodone 5 mg tablet 09/12 completed Not Available Not Available Not Available enoxaparin 30 mg/0.3 mL subcutaneou s syringe 07/26 completed Not Available Not Available Not Available cyclobenzap rine 5 mg tablet TAKE 1 TABLET BY MOUTH TWICE DAILY FOR 14 DAYS 01/24 completed Not Available Not Available Not Available chlorhexidi ne gluconate 0.12 % mouthwash 04/23 completed Not Available Not Available Not Available Xarelto 20 mg tablet TAKE 1 TABLET BY MOUTH EVERY DAY FOR 30 DAYS 09/12 completed Not Available Not Available Not Available Eliquis 5 mg tablet TAKE 1 TABLET BY MOUTH TWICE A DAY active Not Available Not Available No t Available Vitals Date Recorded Body height Body mass index (BMI) Body weight Heart rate Oxygen saturation Oxygen saturation in Arterial blood by Pulse oximetry Systolic blood pressure Diastolic blood pressure Provider Name and Address Organization Details Last Updated DateTime 5 154.31 cm 38.1 kg/m2 87367.4 7 g 66 /min 98 % 98 % 114 mm[Hg] 66 mm[Hg] Vic Yoo [facility] 5 13:52:31 Date Recorded Body height Heart rate Oxygen saturation Oxygen saturation in Arterial blood by Pulse oximetry Systolic blood pressure Diastolic blood pressure Provider Name and Address Organization Details Last Updated DateTime 5 154.31 cm 59 /min 99 % 99 % 124 mm[Hg] 82 mm[Hg] Shy Estrada [facility] 5 15:07:59 Date Recorded Body height Body mass index (BMI) Body weight Heart rate Oxygen saturation Oxygen saturation in Arterial blood by Pulse oximetry Systolic blood pressure Diastolic blood pressure Provider Name and Address Organization Details Last Updated DateTime 5 154.31 cm 40.8 kg/m2 44070.7 7 g 63 /min 98 % 98 % 136 mm[Hg] 78 mm[Hg] Akshat Condon, DO [address] [place], [address], [facility] 5 11:24:09 Date Recorded Body height Body mass index (BMI) Body weight Heart rate Oxygen saturation Oxygen saturation in Arterial blood by Pulse oximetry Systolic blood pressure Diastolic blood pressure Provider Name and Address Organization Details Last Updated DateTime 4 154.31 cm 38.6 kg/m2 84833.4 5 g 64 /min 97 % 97 % 126 mm[Hg] 84 mm[Hg] Shy Estrada [facility] 4 13:56:50 Date Recorded Body height Body mass index (BMI) Body weight Heart rate Oxygen saturation Oxygen saturation in Arterial blood by Pulse oximetry Systolic blood pressure Diastolic blood pressure Provider Name and Address Organization Details Last Updated DateTime 4 154.31 cm 38.3 kg/m2 53529.0 7 g 57 /min 99 % 99 % 150 mm[Hg] 84 mm[Hg] Laverne Wisdommond [facility] 4 16:06:44 Social History Question Answer Notes LastModified by Organizat ion Details LastModified Time Tobacco Smoking Status Never Smoker Norma lugo [facility] 09/02/2018 16:01:44 What Was The Date Of Your Most Recent Tobacco Screening? 09/12/2024 Information not available 09/12/2024 Sex: Unknown Functional Status Question Answer Note LastModified by Organization D etails LastModified Time Do you or have you ever used any other forms of tobacco or nicotine? No Information not available 11/11/2021 Mental Status None recorded. Family History Nothing Reported. Medical History No medical history recorded. Gynecological HistoryNo gynecological history recorded. Obstetrics History GPAL:G 0 P 0 0 0 0 Immunizations Vaccine Type Date Status Note Provider Nam e and Address Organization Details Recorded Time COVID-19, mRNA, LNP-S, PF, 30 mcg/0.3 mL dose 08/26/2020 juan c lugo [facility] 11/11/2021 09:36:12 COVID-19, mRNA, LNP-S, PF, 30 mcg/0.3 mL dose 09/16/2020 juan c lugo [facility] 11/11/2021 09:36:16 Past Encounters Encounter ID Performer Location Encounter Start Date Encounter Closed Date Diagnosis/Indication Diagnosis SNOMED-CT Code Diagnosis ICD10 Code Diagnosis Note [id number] Akshat Condon DO [facility] [address] [facility] [address] [employer] [place] [address] 07/26/2018 14:17:27 07/26/2018 14:53:38 Osteoarthritis 691610690 M19.90 Hypothyroidism 68245009 E03.9 Essential hypertension 27538324 I10 Hypercholesterolemia 136 66695 E78.00 Deep venou s thrombosis 471106425 I82.409 on coumadin Pale complexion 91113311 0 R23.1 Snoring 63021934 R06.83 Total repl acement of hip 32008397 Z96.649 continue PT Gastroesop hageal reflux disease 571355031 K21.9 If skips med X 1 day, gets burning [id number] Akshat Condon [facility] [address] [facility] [address] [address] 09/02/2018 15:56:18 09/02/2018 16:21:46 Chronic depression 479399028 F34.1 stable Crohn's disease 21325189 K50.90 no changes Osteoarthritis 952803771 M19.90 s/p Left hip replacemen t Hypothyroidism 81542617 E03.9 follow in 4 weeks Essential hypertension 64323527 I10 well controlled [id number] Akshat Condon [facility] [address] [facility] [address] [address] 12/09/2018 15:24:39 12/09/2018 16:08:40 Impaired fasting glycemia 248208974 R73.01 has been borderline so will need to get a new a1c Osteoarthritis 034300583 M19.90 in knees, has bone on bone and is not doing well at all Hypothyroidism 29428138 E03.9 we need to increase the dose of her thy med Essential hypertension 43104418 I10 has been stable Dyspnea on exertion 6084 5006 R06.09 echo are needed note she just had a hip replaced in jun Akshat Condon [facility] [address] [facility] [address],[place] [address] 02/19/2019 14:32:38 02/19/2019 15:52:31 Essential hypertension 52875361 I10 has been stable but given diastolic dysfunctio n will taper off metoprolol and start diltiazem Hypothyroidism 82839764 E03.9 we need to increase the dose of her thy med Diastolic dysfunction 35 50784 I50.30 as above will try diltiazem [id number] Akshat Condon [facility] [address] [facility], [place] [address] 03/26/2019 14:56:46 03/26/2019 16:00:10 Essential hypertension 91797212 I10 is no better on diltiazem except she has noted increase in bp she will restart her metoprolol Hypothyroidism 07162401 E03.9 will chk the tsh Cough 08940952 R05 will start amoxicilli n 500 tid will give her forms for xray of her sinuses and chest [id number] Akshat Condon [facility] [address] [facility], [facility] [address] 05/30/2019 11:45:37 05/30/2019 12:17:45 Essential hypertension 32150672 I10 is no better and bp is now 200 systolic will increase the metop to 100 Gastroesop hageal reflux disease 084067070 K21.9 [id number] Akshat Condon [facility] [address] [facility], [place] [address] 06/13/2019 11:23:06 06/13/2019 11:58:44 Impaired fasting glycemia 209261231 R73.01 has been borderline so will need to get a new a1c Essential hypertension 90547529 I10 is no better and bp is now 200 systolic will increase the metop to 100 BP is still poorly controlled on increased metop Will add jaydon 25 mg and f/u next week Hypothyroidism 87064673 E03.9 will chk the tsh [id number] Akshat Condon [facility] [address] [facility] [address], [place] [address] 06/23/2019 13:36:00 06/23/2019 14:11:26 Essential hypertension 25669617 I10 BP is much better controlled and no edema Upper resp iratory infection 26852711 J06.9 Likely viral, ongoing cough and congestion , lungs clear Will let us know if symptoms worsen or gets fever Hypothyroidism 20207541 E03.9 Awaiting labs [id number] Akshat Condon [facility] [address] [facility] [address] [address] 08/12/2019 14:14:51 08/12/2019 15:12:05 Essential hypertension 03297152 I10 BP is still up and down and not very well controlled on 100 of metoprolol and 50 of spironolac tone plan is to stop the spironolac tone and start the lisinopril 10mg Vitamin deficiency 98974 002 E56.9 cont supp Impaired f asting glycemia 949692134 R73.01 has been borderline so will need to get a new a1c in near future [id number] Akshat Condon [facility] [address] [facility],[place] [employer] [facility] [address] 09/10/2019 13:33:28 09/10/2019 15:55:03 Hypothyroidism 07025844 E03.9 last lab work was excellent Impaired f asting glycemia 540186245 R73.01 has been borderline so will need to get a new a1c in near future Pulmonary embolism 11641 003 I26.99 INR is stable Crohn's disease 32221868 K50.90 unknown status as she has not followed up with GI recently Right flank pain 5272574 09 R10.9 given persistanc e of her pain and [place] [id number] Akshat Condon [facility] [address] [facility],[place] [address] 03/29/2020 09:52:56 03/29/2020 16:15:17 Upper respiratory infection 57622970 J06.9 will treat with Z-mark and see if improvemen t Gastroesop hageal reflux disease 008921410 K21.9 patient has hx of GERD may be combinatio n of URI and GERD symptoms at the same time, will treat with double omeprazole dose for 4 days while on Z mark and see if improvemen t in symptoms will call back if she worsens [id number] Akshat Condon [facility] [address] [facility],[place] [address] 04/23/2020 15:19:43 04/23/2020 16:07:41 Gastroesophageal reflux disease 811627490 K21.9 has been on 2 omeprazole s for the recent worsening of her GERD she is in a lot of discomfort with a lot of regurgitat ion and is very unpleasant and araiza she will have her raise her head at night she has a hard time with her neck as she has to lie flat at night but i feel this is causing worsening symptoms Essential hypertension 76380114 I10 BP are now well controlled on 100 of metoprolol and 50 of spironolac tone Basal cell carcinoma of skin 141501681 C44.91 [id number] Akshat Condon [facility] [address] [facility],[place] [address] 06/21/2020 08:43:29 06/21/2020 15:32:51 Essential hypertension 15106520 I10 BP are now well controlled on 100 of metoprolol and 50 of spironolac tone Neck pain 93094334 M54.2 possible gGI consult not until next mo will try [place] see pt radha [id number] Akshat Condon [facility] [address] [facility],[place] [address] 06/22/2020 14:48:44 06/22/2020 15:03:02 Sialoadenitis 81409142 K11.20 [id number] Akshat Condon [facility] [address] [facility],[place] [address] 12/27/2020 10:16:40 12/27/2020 11:42:35 Acute pharyngitis 415026155 J02.9 rapid failed Acute otitis media 01803 03 H65.01 will start on abx and fu back up in a week for lavage after using debrox Impacted c erumen in right ear 6209106674 222686 H61.21 will fu in a week [id number] Akshat Condon [facility] [address] [facility],[place] [address] 01/04/2021 14:16:12 01/04/2021 14:48:31 Impacted cerumen in right ear 3665171899 107144 H61.21 fu with ENT, RADHA referral [id number] Akshat Condon [facility] [address] [facility], it[place] [facility] [place] [address] 05/04/2021 10:43:44 05/09/2021 09:10:52 Lymphadenopathy 85160569 R59.0 will start on medrol dose mark and msk relaxer for combinatio n TMJ and enlarged LNwill also fu with Temporoman dibular elwaj-jtyi-bnoikapnwn n syndrome 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.622 will fu with bebo graf as well for her jaw [id number] Akshat Condon [facility] [address] [facility], ite [facility] [place] [address] 06/06/2021 08:24:07 06/06/2021 14:00:55 Essential hypertension 66746044 I10 BP are now well controlled on 100 of metoprolol and 50 of spironolac tone Impaired f asting glycemia 253073044 R73.01 has been borderline so will need to get a new a1c in near future Hypothyroidism 85069400 E03.9 last lab work was excellent Crohn's disease 10740461 K50.90 unknown status as she has not followed up with GI recently Diastolic dysfunction 35 79040 I50.30 as above will try diltiazem Pulmonary embolism 53999 003 I26.99 INR is stable Deep venou s thrombosis 916632604 I82.409 stable and is without issue at this time [id number] Akshat Condon [facility] [address] [facility],[place] [address] 07/06/2021 14:45:59 07/06/2021 16:22:19 COVID-19 325753137 U07.1 ongoing fatiguelon g term symptomgiv en tips to manage it [id number] Akshat Condon [facility] [address] [facility],[place] [address] 11/11/2021 16:14:21 11/11/2021 16:49:49 Type 2 diabetes mellitus 67316312 E11.9 a1c is 6.4 doing well Hypothyroidism 95273246 E03.9 tsh > 6 Essential hypertension 18405873 I10 BP are now well controlled on 100 of metoprolol and 50 of spironolac tone Osteopenia 908970590 M85 .80 being followed Active or passive immunization 795769098 Z23 patient advised of due vaccines (tdap, pneu 13 & 23, shingles) Crohn's disease 93268284 K50.90 unknown status as she has not followed up with GI recently Diastolic dysfunction 35 53991 I50.30 as above will cont diltiazem Pulmonary embolism 65139 003 I26.99 INR is stable Deep venou s thrombosis 903736174 I82.409 stable and is without issue at this time Eczema 41708026 L30.9 stable Seborrheic dermatitis of scalp 266244431 L21.0 [id number] Akshat Condon [facility] [address] [facility], [place] [address] 01/24/2022 14:09:38 01/24/2022 15:11:39 Active or passive immunization 852140056 Z23 patient advised of due vaccines (tdap, pneu 13 & 23, shingles) Adult heal th examination 361631144 Z00.01 has to lose weight she know this and will try but is severely hampered by her back issuesalso has had a bcc removed on her neck but has to see another surg to have a removal but pt tells me they are going to put her under to do this but this seems excessive and i asked to have derm send info to me yandy maya and its attachment s are being looked at by various dr arash reviewed all her lab Screening for osteoporosis 176559456 Z13.820 Hepatitis C screening 41 9709012 Z11.59 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 [id number] Akshat Condon [facility] [address] [facility],[place] [address] 02/24/2022 15:30:39 02/24/2022 16:17:39 Type 2 diabetes mellitus 97240646 E11.9 a1c is 6.4 doing well but neuropathy has been a problem for her feethaving a burning pain she will try the gabapentin at night Essential hypertension 38049915 I10 BP are now well controlled on 100 of metoprolol and 50 of spironolac tone Hypothyroidism 85469764 E03.9 tsh > 6 [id number] Akshat Condon [facility] [address] [facility],[place] [address] 08/04/2022 11:09:49 08/04/2022 15:58:54 Type 2 diabetes mellitus 74391322 E11.9 a1c is 6.4 doing well but neuropathy has been a problem for her feethaving a burning pain she will try the gabapentin at night Essential hypertension 03933445 I10 BP are now well controlled on 100 of metoprolol and 50 of spironolac tone Hypothyroidism 16074556 E03.9 tsh > 6 Low back pain 552817689 M54.50 she will need to get a xray done first i anticipate this to be significan t and this may lead to mri etc Crohn's disease 21528328 K50.90 unknown status as she has not followed up with GI recently Diastolic dysfunction 35 42202 I50.30 as above will cont diltiazem Pulmonary embolism 58815 003 I26.99 INR is stable Deep venou s thrombosis 943396424 I82.409 stable and is without issue at this time Dysplastic nevus of skin 521610637 D22.9 [id number] Akshat Condon [facility] [address] [facility],[place] [address] 02/20/2023 14:53:25 02/20/2023 16:15:33 Crohn's disease 48605811 K50.90 unknown status as she has not followed up with GI recently Essential hypertension 83980925 I10 BP are now well controlled on 100 of metoprolol and 50 of spironolac tonereview ed lab in detail and doing great Hypercholesterolemia 136 95766 E78.00 discussed results and doing well Hypothyroidism 04023767 E03.9 tsh > 6 Type 2 cj betes mellitus 98850462 E11.9 a1c is now 6.2 and prior 6.4 doing well but neuropathy has been a problem for her feethaving a burning pain she will try the gabapentin at night [id number] Akshat Condon [facility] [address] [facility],[place] [address] 08/07/2023 13:23:14 08/07/2023 14:48:50 Diastolic heart failure 042350275 I50.30 stable and without issue Essential hypertension 30090400 I10 BP are now well controlled on 100 of metoprolol and 50 of spironolac [facility] ed lab in detail and doing great Hypothyroidism 48191120 E03.9 tsh > 6 Type 2 cj betes mellitus 41456893 E11.9 a1c is now 6.2 and prior 6.4 doing well but neuropathy has been a problem for her feethaving a burning pain she will try the gabapentin at night Crohn's disease 18659422 K50.90 unknown status as she has not followed up with GI recently Multiple a ctinic keratoses 653817043 L57.0 Pulmonary embolism with pulmonary infarction 4232796911 102 I26.99 [id number] Akshat Condon [facility] [address] [facility],Malena Hanna [facility] [place] [address] 11/19/2023 13:48:09 11/20/2023 09:13:57 Adult health examination 313118348 Z00.00 she is doing great after surgery not as sore and she is going to need to get going otherwise she will remain deconditio colton PRIOR:has to lose weight she know this and will try but is severely hampered by her back issuesalso has had a bcc removed on her neck but has to see another surg to have a removal but pt tells me they are going to put her under to do this but this seems excessive and i asked to have derm send info to me yandy maya and its attachment s are being looked at by various dr arash reviewed all her lab Screening for cardiovascular system disease 273378594 Z13.6 Screening for malignant neoplasm of colon 805956723 Z12.11 Screening for osteoporosis 646371847 Z13.820 Screening mammography 24 092401 Z12.31 had done 9 months ago Depression screening 171 228610 Z13.31 SCREENING NEGATIVE Degenerati ve lumbar spinal stenosis 514334863 M48.061 post op now and slowly getting better [id number] Akshat Condon [facility] [address] [facility],[place] itingrid Hanna [facility] [place] [address] 05/05/2024 15:57:41 05/05/2024 16:34:34 Diastolic heart failure 569439084 I50.30 stable and without issue Hypothyroidism 10890247 E03.9 tsh > 6 Muscle pain 50773559 M79 .10 Bilateral shoulder joint pain 9302252441 0492080 M25.511 M25.512 [id number] Akshat Condon, [facility] [address] [facility],[place] [address] 08/06/2024 13:41:50 08/06/2024 15:07:29 Essential hypertension 68614377 I10 BP are now well controlled on 100 of metoprolol and 50 of spironolac tonereview ed lab in detail and doing great Hypothyroidism 54948236 E03.9 tsh > 6 Type 2 cj betes mellitus 68275014 E11.9 a1c is now 6.2 and prior 6.4 doing well but neuropathy has been a problem for her feethaving a burning pain she will try the gabapentin at night Crohn's disease 65008016 K50.90 unknown status as she has not followed up with GI recently Polymyalgi a rheumatica 68512225 M35.3 [id number] Akshat Condon [facility] [address] [facility] [place] [address] 08/22/2024 14:54:02 08/22/2024 16:10:38 Abdominal cutaneous nerve entrapment syndrome 979876962 G58.8 cont kevan Flatulence , eructation and gas pain 089756745 R14.1 hold the omeprazole and call us on Polymyalgi a rheumatica 10149243 M35.3 will decrease to 30 and call in 10 days Essential hypertension 21246700 I10 BP are now well controlled on 100 of metoprolol and 50 of spironolac tonereview ed lab in detail and doing great Gastroesop hageal reflux disease 980019694 K21.9 having a lot of gas will try holding the omeprazole for a few days and see if the gas pain is better has been on 2 omeprazole s for the recent worsening of her GERD she is in a lot of discomfort with a lot of regurgitat ion and is very unpleasant and araiza she will have her raise her head at night she has a hard time with her neck as she has to lie flat at night but i feel this is causing worsening symptoms [id number] Akshat Condon DO [facility] Internal Medicine [address] [facility] [address],[place] [facility] [place] [address] 09/12/2024 11:06:59 09/12/2024 11:47:39 Depression screening 236208507 Z13.31 SCREENING NEGATIVE Polymyalgi a rheumatica 57397615 M35.3 will decrease to 30 and call in 10 dayswe are cont to slowly cut down will go to 25mg and then 20 after a few weeks if ok Screening for malignant neoplasm of colon 228334585 Z12.11 ordered cologuard Dysplastic nevus of skin 863897767 D22.9 Health Concerns Section Related Observation LastModified by Organization Detai ls LastModified Time None Recorded Concern Status LastModified by Organization Details LastModified Time None Recorded Advance Directives Directive None Recorded Payers Encounter Date Sequence Insurance Name Policy Number Policy Mcintyre Covered Member ID Mcintyre Member ID Guarantor Name 11/19/2023 1 [employer] - DOS ON OR AFTER 2022 - MEDICARE [place]VANTAGE [place]MED[place]AC[place] VANTAGE - PPO) [facility] [id number] [facility] 05/05/2024 1 [employer] - DOS ON OR AFTER 2022 - [place]ANTAGE - PPO) Janna D [place] [id number] [facility] 08/06/2024 1 [employer] - DOS ON OR AFTER 2022 - [place]ANT[place] - PPO) [facility] [id number] J[facility] 08/22/2024 1 [employer] - DOS ON OR AFTER 2022 - [place]ANT[place] - PPO) J[facility] D [facility] [id number] Janna [facility] 09/12/2024 1 [employer] - DOS ON OR AFTER 2022 - [place] VANTAGE - PPO) Janna [facility] [id number] [facility] Notes Date Note Type Note Provider Name and Address Organization Details Recorded Time 4 text/htm l Medicare Annual Wellness VisitReported bypatient.Diet and Nutrition:healthy diet Fracture Risk:no history of fractures; no recent explained fracture; no sudden unexplained fractures; no previous musculoskeletal injuries Physical Activity:exercises on a regular basis; recent increase in physical activity; good physical condition Depression Risk:never feels sad, empty, or tearful; no loss of interest in activities; no significant changes in weight; no sleep disturbances or insomnia; no agitation; no loss of energy; no feelings of worthlessness or guilt; no thoughts of suicide; no history of depression; no history of mood disorders Orientation:no disorientation to time; no disorientation to date; no disorientation to place Concentration and Memory:no decreased concentrating ability; no memory lapses or loss; does not forget words Speech/Motor difficulties:no speech difficulties; no difficulty expressing formulated concepts; no difficulty with fine manipulative tasks; no difficulty writing/copying; no slowed reaction time; does not knock things over when trying to pick them up Hearing:no loss of hearing Vision:no vision problems Activities of Daily Living:able to bathe with limited or no assistance; able to contol urination and bowels; able to dress with limited or no assistance; able to feed self with limited or no assistance; able to get out of chair or bed with limited or no assistance; able to groom with limited or no assistance; able to toilet with limited or no assistance Instrumental Activities of Daily Living:able to do house work with limited or no assistance; able to grocery shop with limited or no assistance; able to manage medications with limited or no assistance; able to manage money with limited or no assistance; able to prepare meals with limited or no assistance; able to use the phone with limited or no assistance Falls Risk Assessment:no frequent falls while walking; no fall in the past year; no fall since last visit; no dizziness/vertigo Home Safety:no unsafe pete hazzards; no unsafe stairs; no unsafe gas appliances; working smoke/CO detectors; wears protective head gear for biking/high velocity; use of seatbelts; practicing 'safer sex'; no vision or hearing loss while driving; no fire arms; has hand bars in the bathroom/shower; good lighting in the home Akshat Condon, DO [address] [place], [address], [facility] 11/19/2023 14:15:23 4 text/htm l states having pain in entire bodystates she is hurting enid in her shouldersrelates that her surgeries of hip replacement did not helpc/o pain in shoulders enid left going down arms into hands Akshat Condon DO [address] [place], [address], [facility] 05/05/2024 16:29:48 5 text/htm l here for rechk and is relating that she has gained wgt here for rechk and doing ok overallunfortunately has gained wgtback is more sore than usual Akshat Condon DO [address] [place], [address], [facility] 08/06/2024 14:13:45 5 text/htm l here for rechk and is relating that she has gained wgt here for rechk and doing ok overallunfortunately has gained wgtback is more sore than usual Akshat Condon DO [address] [place], [address], [facility] 08/22/2024 15:36:00 5 text/htm l here for rechk and is relating that she has gained wgt here for rechk and doing ok overallunfortunately has gained wgtback is more sore than usual Akshat Condon DO [address] [place], [address], [facility] Internal [facility] 09/12/2024 11:44:51 OBGyn Episode No OBEpisode recorded.
[2024-11-12 19:09] LABS: Erythrocyte Sedimentation Rate 18 MM/HR (0-20)
== END 2024-11-12 13:35 | disposition home or self-care (01) ==
LOC: HO.MANLDS 13:34
PROVIDERS: Visit Provider Internal Medicine
DX: M35.3 Polymyalgia rheumatica (principal)
CPT/HCPCS: 36415; 85652

== ENCOUNTER → 2025-01-13 12:57 | Outpatient (REF) | payer OTHER, SELFPAY ==
--- NOTE | 2025-01-13 13:00 | CA_ITS ---
Transthoracic Echocardiogram Patient (Last, First, Middle): Janna Troy, Gender: Female Date of : 1950 Age: 74 Procedure Date: 01/13/2025 Procedure Type: Transthoracic Echocardiogram Location: OP Height: 154.94 cm Weight: 95.26 kg BSA: 1.93 m2 Heart Rate: 66 bpm BP: 128 / 70 mmHg Credit Review Manager: RICHARD Referring MD: Akshat Jacobs MD Symptoms: DYSPNEA R06.09 Study Quality: Adequate w contrast ECG Rhythm: Sinus Conclusions: - The left ventricular systolic function is normal. The calculated ejection fraction is 60% by biplane method. - There is mild mitral valve regurgitation. Findings Procedure Information Contrast agent, definity, is being given per protocol without apparent complications. Left Ventricle Normal left ventricular cavity size. There is mildly increased left ventricular wall thickness. The left ventricular systolic function is normal. The calculated ejection fraction is 60% by biplane method. There is no evidence of regional wall motion abnormalities. Diastolic function is normal for age. Right Ventricle Normal right ventricular cavity size and systolic function. Atria The left atrium is mildly dilated. The right atrium is normal in size. Aortic Valve There is a normal trileaflet aortic valve. There is no aortic valve stenosis. There is no aortic valve regurgitation. Mitral Valve The mitral valve appears normal. There is mild mitral valve regurgitation. There is no mitral valve stenosis. Pulmonic Valve There is trace to mild pulmonic valve regurgitation. Tricuspid Valve There is mild tricuspid valve regurgitation. There is no evidence of pulmonary hypertension. Great Vessels The asc aorta and aortic arch are normal in size. Venous The inferior vena cava is normal in size and collapses greater than 50% with inspiration. Pericardium/Pleural There is no evidence of pericardial effusion. Prior Study Comparison No significant change compared to prior study dated: 10/08/2023. Measurements 2D Linear Measurements IVSd: 1.28 0.6-0.9/0.6-1.0 cm LVIDd: 4.37 3.9-5.3/4.2-5.9 cm LVIDd Index: 2.26 2.4-3.2/2.2-3.1 cm/m2 LVIDs: 2.77 2.0-3.6 cm LVPWd: 1.15 0.7-1.1 cm LA Diam: 3.70 2.7-3.8/3.0-4.0 cm LAIDs Index: 1.92 1.5-2.3 cm/m2 LV Mass: 240.22 67-162/88-224 g LV Mass Index: 124.47 43-95/49-115 g/m2 LVOT Diam: 2.20 3.0+(-)1.3 cm 2D Systolic Function EF 4C: 61.40 >55% EF 2C: 60.10 >55% EF BiP: 59.70 >55% Mitral Valve MV Pk E: 0.86 MV PK A: 0.94 MV Decel Time: 177.00 E/A: 0.90 E'Lateral: 7.07 E'Medial: 5.98 E/E' Med: 14.40 E/E' Lat: 12.20 PHT: 52.00 MVA PHT: 4.23 Decel [place]: 4.87 Aortic Valve AoV Pk Liam: 1.36 AoV Mn Liam: 0.97 AoV VTI: 0.33 AoV Pk Grad: 7.00 Aov Mn Grad: 4.00 CHRISTOPHER Cont.VTI: 2.64 LVOT LVOT Pk Liam: 0.97 LVOT Mn Liam: 0.63 LVOT VTI: 0.23 LVOT Pk Grad: 4.00 LVOT Mn Grad: 2.00 LVOT Diam: 2.20 LVOT Area: 3.80 Diastolic Function MV Pk E: 0.86 MV Pk A: 0.94 E/A: 0.90 E'Medial: 5.98 E/E' Med: 14.40 E' Laterial: 7.07 E/E' Lat: 12.20 Right Ventricle TAPSE (mm): 21.90 TVS' Liam: 10.10 Tricuspid Valve TR Pk Liam: 2.51 TR Pk Grad: 25.00 RA Press: 3.00 RVSP: 28.00 Great Vessels Aorta Sinus of Valsalva: 3.25 2.0-3.5 cm Ao Asc: 3.10 2.1-3.4 cm Ao Arch: 2.90 Updated in Other Vendor System with Status of Final Jhony Cabrera MD electronically signed on 01/14/2025 11:25:19 AM with status of Final
--- OUTSIDE RECORDS SUMMARY | 2025-01-13 13:34 | XMS_ITS | Encounter Summary ---
Author Organization [facility] Address [address] [place] [address] [address] [place] [address] Phone Care Team Providers Care Web Page Designer Name Role Phone Akshat Jacobs DO Primary Care Provider [phone] Encounter Details Date Type Department Care Team ([facility] st Contact Info) Description 10/06/2022 Transcribe Orders Virtual Department [address] [place] [address] Akshat Jacobs DO [address] [facility] [address] [place] [address] [email or web address] Breast screening (Primary Dx) Social History Tobacco Use Types Packs/Day Years Used Date Smoking Tobacco: Never Smokeless Tobacco: Never Education Answer Date Recorded Are you interested in more education? Not on darcie e 10/05/2022 Are you concerned about learning? Not on file 10/05/2022 No 10/05/2022 No 10/05/2022 Comments No Sex and Gender Information Value Date Recorded Sex Assigned at Female 11/01/2020 4:07 PM EDT Legal Sex Female 10:03 PM EDT Gender Identity Female 11/01/2020 4:07 PM EDT Sexual Orientation Straight 11/01/2020 4: 07 PM EDT documented as of this encounter Plan of Treatment Not on file documented as of this encounter Results * BI MAMMOGRAM SCREENING WITH TOMOSYNTHESIS WITH CAD (BILATERAL) (02/16/2023 2:36 PM EDT) Anatomical Region Laterality Modality Breast Left, Breast Right, Breast Bilateral Bila teral Mammography 03/03/2023 10:5 7 AM EDT Impressions 03/03/2023 1:39 PM EDT BILATERAL BREASTS: Benign calcifications and focal skin lesion inferior right breast. Recommend correlation with physical exam to assess gas right breast skin lesion No evidence of breast malignancy. Normal interval follow-up is recommended. BI-RADS: BI-RADS CATEGORY: 2 - Benign finding. DENSITY: The breast tissue is almost entirely fat. Narrative 03/03/2023 1:39 PM EDT History: Breast cancer screening. STUDY: Bilateral screening mammography with tomosynthesis and CAD TECHNIQUE: Bilateral full-field digital screening mammography is obtained and read in conjunction with computer-aided detection. Tomosynthesis as well as 2-D C view imaging were obtained. COMPARISON: Comparison made with multiple prior, most recent 05/18/2021, and most remote 03/12/2007. FINDINGS: Breast tissue is mostly fatty replaced. 3 x 3.5 mm discrete asymmetry anterior, inferior right breast projects onto the skin surface on tomography, particularly evident on cc tomography. No suspicious mass, concerning group of calcifications or suspicious asymmetry identified. Procedure Note Chay Dhaliwal MD - 03/03/2023 History: Breast cancer screening. STUDY: Bilateral screening mammography with tomosynthesis and CAD TECHNIQUE: Bilateral full-field digital screening mammography is obtainedand read in conjunction with computer-aided detection. Tomosynthesis aswell as 2-D C view imaging were obtained. COMPARISON: Comparison made with multiple prior, most recent 05/18/2021,and most remote 03/12/2007. FINDINGS: Breast tissue is mostly fatty replaced. 3 x 3.5 mm discreteasymmetry anterior, inferior right breast projects onto the skin surfaceon tomography, particularly evident on cc tomography. No suspicious mass,concerning group of calcifications or suspicious asymmetry identified. IMPRESSION: BILATERAL BREASTS: Benign calcifications and focal skin lesion inferiorright breast. Recommend correlation with physical exam to assess gas rightbreast skin lesion No evidence of breast malignancy. Normal intervalfollow-up is recommended. BI-RADS: BI-RADS CATEGORY: 2 - Benign finding. DENSITY: The breast tissue is almost entirely fat. Akshat Jacobs DO IMG MG EXAMS Final Result documented in this encounter Visit Diagnoses Diagnosis Breast screening- Primary Breast screening, unspecified Breast screening Breast screening, unspecified documented in this encounter Additional Health Concerns Infection Onset Date Last Indicated Resolved Time CoV-Risk 09/10/2023 09/10/2023 09/21/2023 1:23 AM EDT documented as of this encounter Care Teams Web Page Designer Relationship Specialty Start Date End Date Akshat Jacobs DO [email or web address] PCP - General 03/27/17 documented as of this encounter Additional Source Comments The information contained in this document represents components of the legal health record. It is not the complete legal health record.[facility]
== END ==
LOC: HO.CARD 12:57
PROVIDERS: PCP Internal Medicine; Visit Provider Internal Medicine
DX: R06.09 Other forms of dyspnea (principal)
CPT/HCPCS: 93306; Q9957

== ENCOUNTER → 2025-01-13 13:00 | Outpatient (BNV) | payer OTHER, SELFPAY | PROVIDERS: PCP Internal Medicine; Visit Provider Internal Medicine | DX: R06.09 Other forms of dyspnea (principal) | CPT/HCPCS: 93306 ==

== ENCOUNTER 2025-01-14 15:20 | Outpatient (REF) | payer OTHER, SELFPAY ==
[2025-01-14 18:26] LABS: MANUAL DIFF FLAG NO
[2025-01-14 18:27] LABS: Hematocrit 38.3 % (37.0-47.0); Hemoglobin 12.6 g/dl (12.0-16.0); Imm Gran Abs Auto 0.02 X10*3/uL (0.00-0.03); Imm Gran Pct Auto 0.4 % (0.0-0.4); Lymphocytes Absolute Auto 0.9 X10*3/uL (1.2-4.9); Mean Corpuscular HGB Conc 32.9 g/dl (31.0-35.0); Mean Corpuscular Hemoglobin 31.2 pg (27.0-33.0); Mean Corpuscular Volume 94.8 fL (80.0-98.0); NRBC Abs Auto 0.000 X10*3/uL (0.0-0.012); NRBC Pct Auto 0.0 /100WBC (0.0-0.2); Platelet Count 345 X10*3/uL (160-400); Red Blood Count 4.04 X10*6/uL (4.20-5.50); White Blood Count 4.8 X10*3/uL (4.8-10.8)
[2025-01-14 18:54] LABS: Magnesium 1.7 mg/dL (1.6-2.6)
[2025-01-14 19:07] LABS: Parathyroid Hormone Intact 120.8 pg/mL (8.7-77.1)
[2025-01-14 19:09] LABS: Uric Acid 8.0 mg/dL (2.4-5.7)
[2025-01-15 12:57] LABS: Lyme Abs Screen <0.90 index
== END 2025-01-14 15:21 | disposition home or self-care (01) ==
LOC: HO.MANLDS 15:20
PROVIDERS: Visit Provider Physician Assistant
DX: M79.18 Myalgia, other site (principal); M10.072 Idiopathic gout, left ankle and foot
CPT/HCPCS: 36415; 82550; 83735; 83970; 84100; 84550; 85025; 85652; 86140; 86617; 86618

== ENCOUNTER 2025-01-27 13:39 | Outpatient (REF) | payer OTHER, SELFPAY ==
--- OUTSIDE RECORDS SUMMARY | 2025-01-27 14:55 | XMS_ITS | Encounter Summary ---
Author Organization [facility] Address [address] [place] [address] [address] [place] [address] Phone Care Team Providers Care Vacuum Tank Tender Name Role Phone Akshat Jacobs DO Primary Care Provider [phone] Encounter Details Date Type Department Care Team ([facility] st Contact Info) Description 10/06/2022 Transcribe Orders Virtual Department [address] [place] [address] Akshat Jacobs DO [address] [facility] [place] [address] [place] [address] [email or web address] Breast screening (Primary Dx) Social History Tobacco [...] documented as of this encounter Care Teams Vacuum Tank Tender Relationship Specialty Start Date End Date Akshat Jacobs DO [email or web address] PCP - General 03/27/17 documented as of this encounter Additional Source Comments The information contained in this document represents components of the legal health record. It is not the complete legal health record.[facility]
== END 2025-01-27 13:40 | disposition home or self-care (01) ==
LOC: HO.MAMMO 13:39
PROVIDERS: PCP Internal Medicine; Visit Provider Internal Medicine
DX: Z12.31 Encounter for screening mammogram for malignant neoplasm of breast (principal)
CPT/HCPCS: 77063; 77067

== ENCOUNTER → 2025-01-27 13:45 | Outpatient (BNV) | payer OTHER, SELFPAY | PROVIDERS: PCP Internal Medicine; Visit Provider Internal Medicine | DX: Z12.31 Encounter for screening mammogram for malignant neoplasm of breast (principal) | CPT/HCPCS: 77063; 77067 ==

== ENCOUNTER → 2025-02-17 07:52 | Outpatient (REF) | payer OTHER, SELFPAY ==
--- NOTE | ~2025-02-17 | NM_ITS ---
Lexiscan Myocardial perfusion study Indication: Shortness of breath to evaluate for myocardial ischemia Technique: The patient was brought in for a Lexiscan perfusion study on 02/17/2025 and was injected 0.4 mg of Lexiscan intravenously. Within a minute of this injection 30 mCi of sestamibi was given intravenously. Images were obtained using the SPECT gamma camera interlaced with the gating device. Images were obtained in supine position. Resting perfusion study was performed on 02/18/2025. Patient was administered 30 mCi of sestamibi intravenously at rest. Images were then obtained in supine position. Images obtained without without CT attenuation. Total DLP 106 mGy-cm. Images were processed with the software and compared side to side in short axis, horizontal long axis and vertical long axis views. Findings: Both stress and rest perfusion study is suboptimal due to intense subdiaphragmatic uptake, predominantly gastric uptake with small hiatal hernia interfering with the basal inferior wall uptake as well as hepatic uptake interfering with myocardial uptake The stress perfusion study showed nonattenuated images show overall normal uptake of radiotracer in all segments of the LV myocardium. Attenuated corrected images show diffusely reduced uptake in all segments of the LV myocardium. The gated study shows normal LV systolic function with visually estimated LVEF of greater than 50%. LV cavity is normal in size. The gated study shows normal systolic wall thickening and contraction of segments. Resting study shows nonattenuated as well as attenuated corrected images show diffusely reduced uptake in all segments of the LV myocardium. Gating at rest reveals normal systolic wall motion with ejection fraction at 53%. The findings are consistent with overall suboptimal study due to intense subdiaphragmatic uptake interfering with myocardial uptake although nonattenuated images at stress perfusion study showed normal uptake. Overall suggestive of normal myocardial perfusion study. NM/NM buffy perf SPECT rest & str Impression: 1. Myocardial perfusion imaging study shows likely normal myocardial perfusion 2. Gated LVEF is 53% 3. Transient ischemic dilatation not present Nondiagnostic changes on EKG. Electronically signed by: Artemio Minaya MD 02/18/2025 01:41 PM EDT
--- NOTE | 2025-02-17 07:55 | CA_ITS ---
Acquisition Time: 2025-02-17 08:07:47 Total Exercise Time: 00:02:00 Test Indications: Dyspnea Medications: SEE H&P Protocol: LEXISCAN Max HR: 75 BPM 51% of Pred: 145 BPM Max BP: 130/84 mmHG Max Work Load: 1.0 METS Pharmacological stress test with Lexiscan while pt swings her legs in chair, with reports of SOB and abdominal discomfort, with frequent PVCs, with normotensive response to injection. Nondiagnostic EKG for ischemia. In recovery, pt treated with IVP Aminophylline 75 mg to reverse Lexiscan after which pt feeling back to baseline. Nuclear images pending. Test reviewed with Dr. Minaya. Referred By: Akshat Jacobs Electronically Signed By: Thor Beaver
--- OUTSIDE RECORDS SUMMARY | 2025-02-17 07:56 | XMS_ITS | Encounter Summary ---
Author Organization [facility] Address [address] [facility] [address] [place] [address] Phone Care Team Providers Care Professor Of Architecture Name Role Phone Akshat Jacobs DO Primary Care Provider [phone] Encounter Details Date Type Department Care Team (Late st Contact Info) Description 08/28/2022 Procedure Pass [address] [address] Social History Tobacco Use Types Packs/Day Years Used Date Smoking Tobacco: Never Smokeless Tobacco: Never Comments No Sex and Gender Information Value Date Recorded Sex Assigned at Female 11/01/2020 4:07 PM EDT Legal Sex Female 10:03 PM EDT Gender Identity Female 11/01/2020 4:07 PM EDT Sexual Orientation Straight 11/01/2020 4: 07 PM EDT documented as of this encounter Plan of Treatment Not on file documented as of this encounter Visit Diagnoses Not on filedocumented in this encounter Additional Health Concerns Infection Onset Date Last Indicated Resolved Time CoV-Risk 09/10/2023 09/10/2023 09/21/2023 1:23 AM EDT documented as of this encounter Care Teams Professor Of Architecture Relationship Specialty Start Date End Date Akshat Jacobs DO [email or web address] PCP - General 03/27/17 documented as of this encounter Additional Source Comments The information contained in this document represents components of the legal health record. It is not the complete legal health record.[facility]
--- OUTSIDE RECORDS SUMMARY | 2025-02-17 07:56 | XMS_ITS | Encounter Summary ---
Author Organization [facility] Address [address] [facility] [address] [place] [address] Phone Care Team Providers Care Emergency Crew Supervisor Name Role Phone Akshat Jacobs DO Primary Care Provider [phone] Encounter Details Date Type Department Care Team ([facility] st Contact Info) Description 04/20/2021 Transcribe Orders Virtual Department [address] [place] [address] Akshat Jacobs DO [address] [facility] [place] [address] [place] [address] [email or web address] Breast screening (Primary Dx) [...] MAMMOGRAM SCREENING WITH TOMOSYNTHESIS WITH CAD (BILATERAL) (05/18/2021 1:45 PM EST) Anatomical Region Laterality Modality Breast Left, Breast Right, Breast Bilateral Bila teral Mammography 05/18/2021 2:06 PM EST Impressions 05/18/2021 2:07 PM EST No mammographic change indicative of malignancy. Annual screening is recommended. BI-RADS CATEGORY: 1 - Negative. DENSITY: The breast tissue is almost entirely fat. Narrative 05/18/2021 2:07 PM EST Bilateral full-field digital screening mammography is obtained and read in conjunction with computer-aided detection. Tomosynthesis as well as 2-D C view imaging of both breasts in two planes also obtained. Comparison made to multiple prior, most recent November 16, 2018, and most remote April 10, 2008. No dominant mass, architectural distortion, worrisome asymmetry, or suspicious calcification is identified. No skin or nipple finding of concern is appreciated. Procedure Note Jamarcus Cervantes MD - 05/18/2021 Bilateral full-field digital screening mammography is obtained and read inconjunction with computer-aided detection. Tomosynthesis as well as 2-D Cview imaging of both breasts in two planes also obtained. Comparison madeto multiple prior, most recent November 16, 2018, and most remote March. No dominant mass, architectural distortion, worrisome asymmetry, orsuspicious calcification is identified. No skin or nipple finding ofconcern is appreciated. IMPRESSION: No mammographic change indicative of malignancy. Annual screening isrecommended. BI-RADS CATEGORY: 1 - Negative. DENSITY: The breast tissue is almost entirely fat. us Akshat Jacobs DO IMG MG EXAMS Final Result documented in this encounter Visit Diagnoses Diagnosis Breast screening- Primary Breast screening, unspecified Breast screening Breast screening, unspecified documented in this encounter Additional Health Concerns Infection Onset Date Last Indicated Resolved Time CoV-Risk 06/30/2021 06/30/2021 06/30/2021 8:35 AM EST COVID-19 06/30/2021 06/30/2021 07/21/2021 1:21 AM EST CoV-Risk 09/10/2023 09/10/2023 09/21/2023 1:23 AM EDT documented as of this encounter Care Teams Emergency Crew Supervisor Relationship Specialty Start Date End Date Akshat Jacobs DO [email or web address] PCP - General 03/27/17 documented as of this encounter Additional Source Comments The information contained in this document represents components of the legal health record. It is not the complete legal health record.[facility]
--- OUTSIDE RECORDS SUMMARY | 2025-02-17 07:56 | XMS_ITS | Encounter Summary ---
Author Organization [facility] Address [address] [place] [address] Phone Care Team Providers Care National Sales Executive Name Role Phone Akshat Jacobs DO Primary Care Provider [phone] Reason for Referral * MRI/CAT Scan - Closed Specialty Diagnoses / Procedures Referred By Bethany reed Referred To Contact Radiology Diagnoses Intervertebral disc disorder with myelopathy, lumbar region Procedures MRI Lumbar Spine CHG MRI, LUMBAR SPINE Akshat Jacobs DO Phone: tel: fax: [email or web address] Referral ID Status Reason Start Date Expiration Date Visits Re quested Visits Authorized [id number] Closed 08/21/2022 12/21/2022 1 1 Encounter Details Date Type Department Care Team (Late st Contact Info) Description 08/28/2022 Transcribe Orders Virtual Department [address] [place] [address] Akshat Jacobs DO [address] [facility] [place] [address] [place] [address] [email or web address] Intervertebral disc disorder with myelopathy, lumbar region (Primary Dx) Social History Tobacco Use Types [...] documented as of this encounter Results * MRI LUMBAR SPINE (BONE) WITHOUT CONTRAST (10/05/2022 1:39 PM EDT) Anatomical Region Laterality Modality L-spine Magnetic Resonan ce 10/06/2022 12:0 3 PM EDT Impressions 10/06/2022 12:55 PM EDT 1. Multilevel facet arthropathy, moderate-severe at L4-L5 and L5-S1. 2. Mild central canal stenosis at L3-L4. 3. Mild degenerative disc and endplate changes. Narrative 10/06/2022 12:55 PM EDT MRI LUMBAR SPINE (BONE) WITHOUT CONTRAST HISTORY: Lower back pain, paresthesias. TECHNIQUE: MRI LUMBAR SPINE (BONE) WITHOUT CONTRAST Multi-sequence, multi-planar MRI of the lumbar spine was performed without intravenous contrast. COMPARISON: Lumbar spine x-ray 08/15/2022, CT abdomen/pelvis 11/01/2020. FINDINGS: LUMBAR SPINE: Alignment and Vertebrae: No compression fractures. Minimal spondylolisthesis of L4 and L5 is stable. Minimal retrolisthesis of L1 on L2. Marrow: No suspicious marrow signal abnormalities. Discs and Endplates: Diffuse disc desiccation. Mild degenerative endplate changes. Conus: Normal. Soft Tissues: No evidence of paravertebral masses. Other Findings: None. Findings by level: T12-L1: Minimal bulging of the disc. No central canal stenosis or significant neuroforaminal narrowing. L1-L2: Small broad-based disc bulge, slightly larger to the right of midline. Minimal facet arthropathy. No central canal stenosis or significant neuroforaminal narrowing. L2-L3: Minimal bulging of the disc. Minimal facet arthropathy. No central canal stenosis or significant neuroforaminal narrowing. L3-L4: Small broad-based disc bulge. Mild-moderate bilateral facet arthropathy and thickening of the ligamentum flavum. Mild central canal stenosis. Mild neuroforaminal narrowing. L4-L5: Small broad-based disc bulge. Moderate-severe bilateral facet arthropathy. No definite central canal stenosis. Mild neuroforaminal narrowing. L5-S1: Minimal bulging of the disc. Moderate-severe bilateral facet arthropathy. No central canal stenosis. No significant neuroforaminal narrowing. Procedure Note Basil Anaya MD - 10/06/2022 MRI LUMBAR SPINE (BONE) WITHOUT CONTRAST HISTORY: Lower back pain, paresthesias. TECHNIQUE: MRI LUMBAR SPINE (BONE) WITHOUT CONTRAST Multi-sequence, multi-planar MRI of the lumbar spine was performed withoutintravenous contrast. COMPARISON: Lumbar spine x-ray 08/15/2022, CT abdomen/pelvis 11/01/2020. FINDINGS: LUMBAR SPINE: Alignment and Vertebrae: No compression fractures. Minimalspondylolisthesis of L4 and L5 is stable. Minimal retrolisthesis of L1 onL2. Marrow: No suspicious marrow signal abnormalities. Discs and Endplates: Diffuse disc desiccation. Mild degenerative endplatechanges. Conus: Normal. Soft Tissues: No evidence of paravertebral masses. Other Findings: None. Findings by level: T12-L1: Minimal bulging of the disc. No central canal stenosis orsignificant neuroforaminal narrowing. L1-L2: Small broad-based disc bulge, slightly larger to the right ofmidline. Minimal facet arthropathy. No central canal stenosis orsignificant neuroforaminal narrowing. L2-L3: Minimal bulging of the disc. Minimal facet arthropathy. No centralcanal stenosis or significant neuroforaminal narrowing. L3-L4: Small broad-based disc bulge. Mild-moderate bilateral facetarthropathy and thickening of the ligamentum flavum. Mild central canalstenosis. Mild neuroforaminal narrowing. L4-L5: Small broad-based disc bulge. Moderate-severe bilateral facetarthropathy. No definite central canal stenosis. Mild neuroforaminalnarrowing. L5-S1: Minimal bulging of the disc. Moderate-severe bilateral facetarthropathy. No central canal stenosis. No significant neuroforaminalnarrowing. IMPRESSION: 1. Multilevel facet arthropathy, moderate-severe at L4-L5 and L5-S1. 2. Mild central canal stenosis at L3-L4. 3. Mild degenerative disc and endplate changes. 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 It is not the complete legal health record.[facility]
--- OUTSIDE RECORDS SUMMARY | 2025-02-17 07:56 | XMS_ITS | Encounter Summary ---
Author Organization [facility] Address [address] [place] [address] Phone Care Team Providers Care Proofer Apprentice Name Role Phone Akshat Jacobs Primary Care Provider [phone] Encounter Details Date Type Department Care Team (Late st Contact Info) Description 11/01/2020 Procedure Pass [facility], Ct Scan - [address] [address] Social History Tobacco Use Types Packs/Day Years Used Date Smoking Tobacco: Never Smokeless Tobacco: Never Comments No Sex and Gender Information Value Date Recorded Sex Assigned at Female 11/01/2020 4:07 PM EDT Legal Sex Female 10:03 PM EDT Gender Identity Female 11/01/2020 4:07 PM EDT Sexual Orientation Straight 11/01/2020 4: 07 PM EDT documented as of this encounter Functional Status * Calculated C-SSRS Risk Score (Lifetime/Recent) Answer Date of Assessment Author No Risk Indicated 11/01/2020 4:05 PM EDT Ghassan Orellana RN * Lucas Suicide Severity Rating Scale (Screener/Recent Self-Report) Question Answer Date of Assessment Author 1. Wish to be (Past 1 Month) No 021 4:05 PM EDT Ghassan Orellana RN 2. Non-Specific Active Suici bradford Thoughts (Past 1 Month) No 11/01/2020 4:05 PM EDT Ghassan Orellana RN 6. Suicidal Behavior (Lifetime) No 4:05 PM EDT Orellana, Ghassan J, RN documented as of this encounter Plan of Treatment Not on file documented as of this encounter Visit Diagnoses Not on filedocumented in this encounter Additional Health Concerns Infection Onset Date Last Indicated Resolved Time CoV-Risk 06/30/2021 06/30/2021 06/30/2021 8:35 AM EST COVID-19 06/30/2021 06/30/2021 07/21/2021 1:21 AM EST CoV-Risk 09/10/2023 09/10/2023 09/21/2023 1:23 AM EDT documented as of this encounter Care Teams Proofer Apprentice Relationship Specialty Start Date End Date Akshat Jacobs DO [email or web address] PCP - General 03/27/17 documented as of this encounter Additional Source Comments The information contained in this document represents components of the legal health record. It is not the complete legal health record.[facility]
--- OUTSIDE RECORDS SUMMARY | 2025-02-17 07:56 | XMS_ITS | Encounter Summary ---
Author Organization [facility] Address [address] [place] [address] [address] [place] [address] Phone Care Team Providers Care Tow Motor Mechanic Name Role Phone Akshat Jacobs DO Primary Care Provider [phone] Encounter Details Date Type Department Care Team ([facility] st Contact Info) Description 10/06/2022 Transcribe Orders Virtual Department [address] [place] [address] Akshat Jacobs DO [address] [facility] [place] [address] [place] [address] [email or web address] Breast screening (Primary Dx) Social History Tobacco [...] documented as of this encounter Care Teams Tow Motor Mechanic Relationship Specialty Start Date End Date Akshat Jacobs DO [email or web address] PCP - General 03/27/17 documented as of this encounter Additional Source Comments The information contained in this document represents components of the legal health record. It is not the complete legal health record.[facility]
--- OUTSIDE RECORDS SUMMARY | 2025-02-17 07:56 | XMS_ITS | Encounter Summary ---
Author Organization [facility] Address [address] [facility] [address] [place] [address] Phone Care Team Providers Care Bindery Library Technical Assistant Name Role Phone Akshat Jacobs DO Primary Care Provider [phone] Encounter Details Date Type Department Care Team ([facility] st Contact Info) Description 08/04/2022 Transcribe Orders Virtual Department [address] [place] [address] Akshat Jacobs DO [address] [facility] [address] [place] [address] [email or web address] Low back pain, unspecified back pain laterality, unspecified chronicity, unspecified whether sciatica present (Primary Dx) Social History Tobacco Use Types [...] documented as of this encounter Results * XR LUMBOSACRAL SPINE 4 OR MORE VIEWS (08/15/2022 3:04 PM EST) Anatomical Region Laterality Modality L-spine Computed Radiogr aphy 08/16/2022 12:0 2 AM EST Impressions 08/16/2022 12:05 AM EST Bones demineralized. Increase in L4-5 anterolisthesis. Similar moderate to severe facet predominant lower lumbar spine degenerative change. Unchanged asymmetric sclerosis to the right sacroiliac joint involving both sides relative to the left. Narrative 08/16/2022 12:05 AM EST XR LUMBOSACRAL SPINE 4 OR MORE VIEWS COMPARISON: Lumbar Spine ; CT ABDOMEN/PELVIS WITH CONTRAST FINDINGS: ALIGNMENT: 5 mm L4-5 anterolisthesis. Lumbar lordosis otherwise within normal limits. VERTEBRAE: Vertebral body heights preserved. DISCS: Disc height loss of the stenosis and marginal osteophytes at L1-2, L2-3, L4-5, and L5-S1. FACETS: Facet arthropathy L2-S1. PARASPINAL SOFT TISSUES: Similar asymmetric sclerosis along both sides of the right sacroiliac joint. Partially visualized left total hip arthroplasty. Moderate to severe right hip osteoarthritis. Procedure Note Sayda Perdomo MD - 08/16/2022 XR LUMBOSACRAL SPINE 4 OR MORE VIEWS COMPARISON: Lumbar Spine ; CT ABDOMEN/PELVIS WITH [id number] FINDINGS: ALIGNMENT: 5 mm L4-5 anterolisthesis. Lumbar lordosis otherwise withinnormal limits. VERTEBRAE: Vertebral body heights preserved. DISCS: Disc height loss of the stenosis and marginal osteophytes at L1-2,L2-3, L4-5, and L5-S1. FACETS: Facet arthropathy L2-S1. PARASPINAL SOFT TISSUES: Similar asymmetric sclerosis along both sides ofthe right sacroiliac joint. Partially visualized left total hiparthroplasty. Moderate to severe right hip osteoarthritis. IMPRESSION: Bones demineralized. Increase in L4-5 anterolisthesis. Similar moderate tosevere facet predominant lower lumbar spine degenerative change. Unchanged asymmetric sclerosis to the right sacroiliac joint involvingboth sides relative to the left. us Akshat A Bigda DO IMG XR SPINE Final Result documented in this encounter Visit Diagnoses Diagnosis Low back pain, unspecified back pain laterality, unspecified chronicity, unspecified whether sciatica present- Primary Low back pain, unspecified back pain laterality, unspecified chronicity, unspecified whether sciatica present documented in this encounter Additional Health Concerns Infection Onset Date Last Indicated Resolved Time CoV-Risk 09/10/2023 09/10/2023 09/21/2023 1:23 AM EDT documented as of this encounter Care Teams Bindery Library Technical Assistant Relationship Specialty Start Date End Date Akshat Jacobs DO [email or web address] PCP - General 03/27/17 documented as of this encounter Additional Source Comments The information contained in this document represents components of the legal health record. It is not the complete legal health record.[facility]
--- OUTSIDE RECORDS SUMMARY | 2025-02-17 07:56 | XMS_ITS | Clinical Summary ---
Author Organization [facility] Address [address] [place] [id number] Phone Care Team Providers Care Toy Consultant Name Role Phone NicolekylieAkshat DO Primary Care Provider [phone] Allergies Active Allergy Reactions Criticality Noted Date Comments Ibuprofen 04/09/2013 Other reaction(s): Unknown Morphine Sulfate 04/09/2013 Other reaction(s): Unknown Nitroglycerin 04/09/2013 Other reaction(s): Unknown Medications cholecalciferol, vitamin D3, 400 unit capsule Active b complex vitamins capsule Act dax levothyroxine (SYNTHROID,LEVOTH ROID) 25 MCG tablet Take 25 mcg by mouth every morning. Active warfarin (COUMADIN) 5 MG tablet Take by mouth daily. 2.5mg Sunday, Sunday, and Sunday 5mg all other days Active spironolactone (ALDACTONE) 50 MG tabletIndications :edema Take 50 mg by mouth daily. Indications: visible water retention 0 Active omeprazole (PRILOSEC) 20 MG capsule omeprazole 20 mg capsule,delaye d release Take 1 capsule by mouth once a day Active ketoconazole (NIZORAL) 2 % shampoo 2 Active betamethasone dipropionate 0.05 % lotion 2 Active metoprolol succinate (TOPROL-XL) 100 MG 24 hr tablet metoprolol succinate ER 100 mg tablet,extende d release 24 hr TAKE 1 TABLET BY MOUTH EVERY DAY Active gabapentin (NEURONTIN) 100 MG capsule Take 200 mg by mouth daily. Active Active Problems No known active problems Resolved Problems Problem Noted Date Diagnosed Date Resolved Date DVT (deep venous thrombosis) 08/20/2017 08/23/2023 Pulmonary embolism and infarction [I26.99] 04/01/2017 08/23/2023 Chronic anticoagulation 04/01/201708/09 Family History Medical History Relation Comments Breast cancer Mother Cancer Mother Relation Status Comments Mother Social History Tobacco Use Types Packs/Day Years Used Date Smoking Tobacco: Never Smokeless Tobacco: Never Education Answer Date Recorded Are you interested in more education? Not on darcie e 10/05/2022 Are you concerned about learning? Not on file 10/05/2022 No 10/05/2022 No 10/05/2022 Digital Access Answer Date Recorded No 11/06/2022 No 11/06/2022 Reliable internet access at home? Not on file 11/06/2022 Device with a working camera? Not on file Intimate Partner Violence Answer Date R ecorded Are you denied basic needs s uch as food, clothing, or medical care? No 09/20/2023 In the past 12 months have y ou been in a relationship with a person who hurts, threatens, or tries to control you? No 09/20/2023 Are you denied basic needs s uch as food, clothing, or medical care? No 09/20/2023 In the past 12 months have y ou been in a relationship with a person who hurts, threatens, or tries to control you? No 09/20/2023 Comments No Sex and Gender Information Value Date Recorded Sex Assigned at Female 11/01/2020 4:07 PM EDT Legal Sex Female 10:03 PM EDT Gender Identity Female 11/01/2020 4:07 PM EDT Sexual Orientation Straight 11/01/2020 4 :07 PM EDT Last Filed Vital Signs Vital Sign Reading Time Taken Comments Blood Pressure 104/73 09/20/2023 10:12 PM EDT Pulse 90 09/20/2023 10:12 PM EDT Temperature 37.6 C (99.7 F) 09/20/2023 10:12 PM EDT Respiratory Rate 20 09/20/2023 10:12 PM EDT Oxygen Saturation 93% 09/20/2023 10:12 PM EDT Inhaled Oxygen Concentration - - Weight 93 kg (205 lb) 09/20/2023 10:12 PM EDT Height 154.9 cm (5' 1 ) 09/20/2023 10:12 PM EDT Body Mass Index 38.73 09/20/2023 10:12 PM EDT Plan of Treatment Health Maintenance Due Date Last Done Comments Adult Td,Tdap Booster 1949 DEPRESSION SCREENING 1961 HEPATITIS C SCREENING 1967 PNEUMOCOCCAL VACCINES (50+ years) (1 of 2 - PCV) 1968 COLOGUARD 1994 COLONOSCOPY 1994 COLORECTAL CANCER SCREENING 1994 FIT TEST 1994 FOBT 1994 SIGMOIDOSCOPY 1994 VIRTUAL COLONOSCOPY 1994 ZOSTER VACCINES (1 of 2) 1999 RSV VACCINE (1 - 1-dose 75+ series) 2024 INFLUENZA VACCINE (#1) 2025 COVID-19 VACCINE ( season) 2025 09/16/2020, 08/26/2020 POTASSIUM LEVEL 07/25/2025 07/25/2024, 09/09, 09/10/2023, Additional history exists TSH LEVEL 07/25/2025 07/25/2024, 02/09, 06/09/2021, Additional history exists LIPID PANEL 09/07/2026 09/07/2021, 10/26/2010 OSTEOPOROSIS SCREENING INITIAL (ONE-TIME) Completed 02/16/2023 SMOKING STATUS SCREENING (Once After 26 Yrs) Completed 02/16/2023 HEPATITIS A VACCINES Aged Out No long er eligible based on patient's age to complete this topic HIB VACCINES Aged Out No longer eligi ble based on patient's age to complete this topic MENINGOCOCCAL VACCINES (ACWY) Aged Out No longer eligible based on patient's age to complete this topic MENINGOCOCCAL VACCINES (B) Aged Out N o longer eligible based on patient's age to complete this topic Medical Devices Not on file Procedures Procedure Name Priority Date/Time Associated Diagnosis Comments TSH WITH REFLEX Routine 07/25/2024 11:14 AM EST Diastolic congestive heart failure, unspecified HF chronicity Hypothyroidism, unspecified type Myalgia COMPREHENSIVE METABOLIC PANEL Routine 07/25/2024 11:14 AM EST Diastolic congestive heart failure, unspecified HF chronicity Hypothyroidism, unspecified type Myalgia BD DXA AXIAL (SPINE) WITH HIP Routine 02/16/2023 2:51 PM EDT Encounter for screening for osteoporosis LIPID PANEL Routine 09/07/2021 10:45 AM EDT Type 2 diabetes mellitus without complication, unspecified whether longwall shearer operator insulin use from Last 3 Months or Most Recently Relevant to Health Maintenance Results * (ABNORMAL) Comprehensive metabolic panel (07/25/2024 11:14 AM EST) SODIUM 136 133 - 146 mmol/L [facility] POTASSIUM 4.7 3.3 - 5.1 mmol/L [facility] CHLORIDE 102 96 - 108 mmol/L [facility] CO2 24 21 - 35 mmol/L [facility] BUN 24(H) 6 - 19 mg/dL [facility] CREATININE 1.10 0.5 - 1.5 mg/dL [facility] GLUCOSE 99 70 - 99 mg/dL [facility] ALBUMIN 3.8(L) 3.9 - 4.8 g/dL [facility] TOTAL PROTEIN 7.5 6.5 - 8.0 g/dL [facility] CALCIUM 9.5 8.4 - 10.3 mg/dL [facility] ALKALINE PHOSPHATASE 50 39 - 117 U/L [facility] TOTAL BILIRUBIN 0.3 0.0 - 1.2 mg/dL [facility] AST 20 0 - 37 U/L [facility] ALT 13 0 - 40 U/L [facility] GLOBULIN 3.7 1 - 4.8 g/dL [facility] EGFR 52(L) >59 mL/min/1.7 3m2 [facility] Comment:Estimated glomerular filtration rate calculated using the CKD-EPI refit equation. ANION GAP 15 10 - 20 mmol/L [facility] Blood 07/25/2024 11:1 4 AM EST 07/25/2024 11:16 AM EST us Akshat A Bigda DO LAB BLOOD ORDERABLES Final Resul t [address] [address] * (ABNORMAL) TSH with reflex (07/25/2024 11:14 AM EST) TSH 6.74(H) 0.27 - 4.20 uIU/mL [facility] Blood 07/25/2024 11:1 4 AM EST 07/25/2024 11:16 AM EST us Akshat A Bigda DO LAB BLOOD ORDERABLES Final Resul t [address] [address] * BD DXA AXIAL (SPINE) WITH HIP (02/16/2023 2:51 PM EDT) Anatomical Region Laterality Modality Bone Density Bone Density 02/23/2023 11:5 8 AM EDT Impressions 02/23/2023 12:01 PM EDT Osteopenia. Overall Fracture Risk: Moderate WHO Classification: Osteopenic FOLLOW-UP: Based on these results, a follow up exam is recommended in 2 years. Narrative 02/23/2023 12:01 PM EDT BD DXA AXIAL (SPINE) WITH HIP Technique: A dual energy x-ray absorptiometry was performed on 02/16/2023 using [employer] A ([id number]) Clinical Indications: Osteoporosis FINDINGS: Right Femoral Neck: BMD: 0.754 g/cm2 ; T-Score:-0.9 ; Z-Score: 1.1 Right Total Hip: BMD: 0.908 g/cm2 ; T-Score: -0.3 ; Z-Score: 1.4 Date of Previous Scan: 04/14/2009 Change from Previous Scan: -4.8% Change from Base Scan: -4.8% AP Total Spine: BMD: 0.920 g/cm2 ; T-Score: -1.2 ; Z-Score:1.2 Date of Previous Scan: 04/14/2009 Change from Previous Scan: -8.0% Change from Base Scan: -8.0% FRAX Score 10 Year Fracture Risk Major Osteoporotic Fracture: 8.2% Hip Fracture: 1.0% * Please note that if FRAX was not reported it is due to the patient already being treated for osteoporosis or their T-Scores for Total Spine, Total Hip and Femoral Neck are at or above -1.0 or below -2.5 World Health Organization (WHO) criteria for post-menopausal, Women: Normal: T-score at or above -1 SD Osteopenia: T-score between -1 and -2.5 SD Osteoporosis: T-score at or below -2.5 SD Procedure Note Sayda Perdomo MD - 02/23/2023 BD DXA AXIAL (SPINE) WITH HIP Technique: A dual energy x-ray absorptiometry was performed on 02/16/2023using [employer] A ([id number]) Clinical Indications: Osteoporosis FINDINGS: Right Femoral Neck: BMD: 0.754 g/cm2 ; T-Score:-0.9 ; Z-Score: 1.1 Right Total Hip: BMD: 0.908 g/cm2 ; T-Score: -0.3 ; Z-Score: 1.4 Date of Previous Scan: 04/14/2009 Change from Previous Scan: -4.8% Change from Base Scan: -4.8% AP Total Spine: BMD: 0.920 g/cm2 ; T-Score: -1.2 ; Z-Score:1.2 Date of Previous Scan: 04/14/2009 Change from Previous Scan: -8.0% Change from Base Scan: -8.0% FRAX Score 10 Year Fracture Risk Major Osteoporotic Fracture: 8.2% Hip Fracture: 1.0% * Please note that if FRAX was not reported it is due to the patientalready being treated for osteoporosis or their T-Scores for Total Spine,Total Hip and Femoral Neck are at or above -1.0 or below -2.5 World Health Organization (WHO) criteria for post-menopausal, CaucasianWomen: Normal: T-score at or above -1 SD Osteopenia: T-score between -1 and -2.5 SD Osteoporosis: T-score at or below -2.5 SD IMPRESSION: Osteopenia. Overall Fracture Risk: Moderate WHO Classification: Osteopenic FOLLOW-UP: Based on these results, a follow up exam is recommended in 2years. us Akshat A Bigda DO IMG BD BONE DENSITY DEXA Final R esult * (ABNORMAL) Lipid panel (09/07/2021 10:45 AM EDT) HDL 47 mg/dL [facility] Comment: Interpretation <40 mg/dL: Low HDL cholesterol (major risk factor for CHD) Greater than or equal to 60 mg/dL: High HDL cholesterol ( negative risk factor for CHD) HDL - cholesterol is affected by a number of factors, e.g. smoking, excerise, hormones, sex and age. CHOLESTEROL 247(H) 0 - 240 mg/dL [facility] TRIGLYCERIDES 187(H) 30 - 160 mg/dL [facility] LDL 163(H) 50 - 129 mg/dL [facility] Comment: LDL levels in terms of risk for coronary heart disease: <100 mg/dL: Optimal 100-129 mg/dL: Near or above optimal 130-159 mg/dL: Borderline high 160-189 mg/dL: High >190 mg/dL: Very High CARDIAC RISK RATIO 5.3(H) 3.3 - 4.4 [facility] Blood 09/07/2021 10:4 5 AM EDT 09/07/2021 10:48 AM EDT us Akshat A Bigda DO LAB BLOOD ORDERABLES Final Resul t [facility] [address] [place] [address] from Last 3 Months or Most Recently Relevant to Health Maintenance Insurance [facility] [employer] MEDICARE REPLACEMENT [facility] RE[facility] Care Teams Toy Consultant Relationship Specialty Start Date End Date Akshat Jacobs DO PCP - General 03/27/17 Additional Source Comments The information contained in this document represents components of the legal health record. It is not the complete legal health record.[facility]
--- OUTSIDE RECORDS SUMMARY | 2025-02-17 07:56 | XMS_ITS | Encounter Summary ---
Author Organization [facility] Address [address] [place] [address] Phone Care Team Providers Care Event Executive Name Role Phone Akshat Jacobs DO Primary Care Provider [phone] Reason for Referral * Physical Therapy (Routine) - Closed Specialty Diagnoses / Procedures Referred By Bethany reed Referred To Contact Physical Therapy Diagnoses Encounter for rehabilitation System, Provider Not In, PhD [address] [place] [address] Phone: tel: Referral ID Status Reason Start Date Expiration Date Visits Re quested Visits Authorized [id number] Closed 05/23/2018 06/10/2018 1 1 Encounter Details Date Type Department Care Team (Late st Contact Info) Description 05/01/2018 Transcribe Orders [facility] [address] [place] [id number] Akshat Jacobs DO [address] [facility] [place] [address] Encounter for rehabilitation (Primary Dx) Social History Tobacco Use Types Packs/Day Years Used Date Smoking Tobacco: Never Smokeless Tobacco: Never Comments Unknown Sex and Gender Information Value Date Recorded Sex Assigned at Female 11/01/2020 4:07 PM EDT Legal Sex Female 10:03 PM EDT Gender Identity Female 11/01/2020 4:07 PM EDT Sexual Orientation Straight 11/01/2020 4: 07 PM EDT documented as of this encounter Plan of Treatment Scheduled Referrals Name Type Priority Associated Diagnoses Orde r Schedule Ambulatory referral to [facility] Physical Therapy Outpatient Referral Routine Encounter for rehabilitation Ordered: 05/01/2018 documented as of this encounter Visit Diagnoses Diagnosis Encounter for rehabilitation- Primary documented in this encounter Additional Health Concerns Infection Onset Date Last Indicated Resolved Time CoV-Risk 06/30/2021 06/30/2021 06/30/2021 8:35 AM EST COVID-19 06/30/2021 06/30/2021 07/21/2021 1:21 AM EST CoV-Risk 09/10/2023 09/10/2023 09/21/2023 1:23 AM EDT documented as of this encounter Care Teams Event Executive Relationship Specialty Start Date End Date Akshat Jacobs DO [email or web address] PCP - General 03/27/17 documented as of this encounter Additional Source Comments The information contained in this document represents components of the legal health record. It is not the complete legal health record.[facility]
--- OUTSIDE RECORDS SUMMARY | 2025-02-17 07:56 | XMS_ITS | Encounter Summary ---
Author Organization [facility] Address [address] [facility] [address] [place] [address] Phone Care Team Providers Care Dog Daycare Provider Name Role Phone Akshat Jacobs Primary Care Provider [phone] Encounter Details Date Type Department Care Team (Latest Contact Info) Description 05/04/2021 Transcribe Orders Virtual Department [address] [place] [address] Bethany Kinney PA [address] [place] [address] [place] [address] Enlarged lymph nodes Social History Tobacco Use Types Packs/Day Years [...] documented as of this encounter Results * US Soft Tissues of Head and Neck (Non-Thyroid) (05/12/2021 2:31 PM EST) Anatomical Region Laterality Modality Neck, Head Ultrasound 05/12/2021 3:19 PM EST Impressions 05/12/2021 3:20 PM EST Unremarkable examination. No lymphadenopathy. Narrative 05/12/2021 3:20 PM EST US SOFT TISSUES OF HEAD AND NECK (NON-THYROID) TECHNIQUE: Ultrasound soft tissue of the head and neck. COMPARISON: None FINDINGS: Lymph nodes: No enlarged or abnormal appearing lymph nodes seen. No abnormal masses or fluid collections in the area of concern. Procedure Note Josey Joseph MD - 05/12/2021 US SOFT TISSUES OF HEAD AND NECK (NON-THYROID) TECHNIQUE: Ultrasound soft tissue of the head and neck. COMPARISON: None FINDINGS: Lymph nodes: No enlarged or abnormal appearing lymph nodes seen. No abnormal masses or fluid collections in the area of concern. IMPRESSION: Unremarkable examination. No lymphadenopathy. Bethany SCRUGGS IMG US HEAD/NECK NON THYROI D Final Result documented in this encounter Visit Diagnoses Diagnosis Enlarged lymph nodes Enlargement of lymph nodes Enlarged lymph nodes Enlargement of lymph nodes documented in this encounter Additional Health Concerns Infection Onset Date Last Indicated Resolved Time CoV-Risk 06/30/2021 06/30/2021 06/30/2021 8:35 AM EST COVID-19 06/30/2021 06/30/2021 07/21/2021 1:21 AM EST CoV-Risk 09/10/2023 09/10/2023 09/21/2023 1:23 AM EDT documented as of this encounter Care Teams Dog Daycare Provider Relationship Specialty Start Date End Date Akshat Jacobs DO [email or web address] PCP - General 03/27/17 documented as of this encounter Additional Source Comments The information contained in this document represents components of the legal health record. It is not the complete legal health record.[facility]
--- OUTSIDE RECORDS SUMMARY | 2025-02-17 07:57 | XMS_ITS | Encounter Summary ---
Author Organization [facility] Address [address] [place] [address] Phone Care Team Providers Care Clerical Dentist Assistant Name Role Phone Akshat Jacobs DO Primary Care Provider [phone] Encounter Details Date Type Department Care Team (Late st Contact Info) Description 12/11/2019 Procedure [facility] Ct Scan - [address] [address] Social History Tobacco Use Types Packs/Day Years [...] documented as of this encounter Care Teams Clerical Dentist Assistant Relationship Specialty Start Date End Date Akshat Jacobs DO PCP - General 10/17/17 documented as of this encounter Additional Source Comments The information contained in this document represents components of the legal health record. It is not the complete legal health record.[facility]
--- OUTSIDE RECORDS SUMMARY | 2025-02-17 07:57 | XMS_ITS | Encounter Summary ---
Author Organization [facility] Address [address] [place], [place] [address] [place] [address] Phone Care Team Providers Care Conservation Of Resources Commissioner Name Role Phone Akshat Jacobs DO Primary Care Provider [phone] Encounter Details Date Type Department Care Team ([facility] st Contact Info) Description 03/27/2019 Transcribe Orders Virtual Department [address] [place] [address] Akshat Jacobs DO [address] [facility] [address] [place] [address] [email or web address] Cough (Primary Dx) Social History Tobacco Use Types [...] as of this encounter Visit Diagnoses Diagnosis Cough- Primary documented in this encounter Additional Health Concerns Infection Onset Date Last Indicated Resolved Time CoV-Risk 06/30/2021 06/30/2021 06/30/2021 8:35 AM EST COVID-19 06/30/2021 06/30/2021 07/21/2021 1:21 AM EST CoV-Risk 09/10/2023 09/10/2023 09/21/2023 1:23 AM EDT documented as of this encounter Care Teams Conservation Of Resources Commissioner Relationship Specialty Start Date End Date Akshat Jacobs DO [email or web address] PCP - General 03/27/17 documented as of this encounter Additional Source Comments The information contained in this document represents components of the legal health record. It is not the complete legal health record.[facility]
--- OUTSIDE RECORDS SUMMARY | 2025-02-17 07:57 | XMS_ITS | Encounter Summary ---
Author Organization [facility] Address [address] [place] [address] [address] [place] [address] Phone Care Team Providers Care Director Of Community Life Name Role Phone Akshat Jacobs DO Primary Care Provider [phone] Encounter Details Date Type Department Care Team ([facility] st Contact Info) Description 07/08/2019 Transcribe Orders [facility] [address] [place] [id number] Akshat Jacobs DO [address] [facility] [place] [address] [place] [address] [email or web address] Myxedema heart disease (Primary Dx) Social History Tobacco Use Types [...] documented as of this encounter Results * Free T4 (07/08/2019 12:07 PM EST) FREE T4 1.3 0.9 - 1.7 ng/dL [facility] Blood 07/08/2019 12:0 7 PM EST 07/08/2019 12:16 PM EST us Akshat Jacobs DO LAB BLOOD ORDERABLES Final Resul t [address] [address] * TSH (07/08/2019 12:07 PM EST) TSH 3.01 0.27 - 4.20 uIU/mL [facility] Blood 07/08/2019 12:0 7 PM EST 07/08/2019 12:16 PM EST us Akshat A Bigda DO LAB BLOOD ORDERABLES Final Resul t Performing Organization Address [facility] de Phone Number [address] [address] * (ABNORMAL) Basic metabolic panel (07/08/2019 12:07 PM EST) SODIUM 137 133 - 146 mmol/L [facility] CHLORIDE 100 96 - 108 mmol/L [facility] POTASSIUM 5.3(H) 3.3 - 5.1 mmol/L [facility] CO2 25 21 - 35 mmol/L [facility] BUN 31(H) 6 - 19 mg/dL [facility] CREATININE 0.90 0.5 - 1.5 mg/dL [facility] GLUCOSE 98 70 - 99 mg/dL [facility] CALCIUM 9.6 8.4 - 10.3 mg/dL [facility] EGFR 65 >59 mL/min/1.7 3m2 [facility] Comment:If patient is black, multiply result by 1.159. Estimated glomerular filtration rate calculated using the CKD-EPI equation. ANION GAP 17 10 - 20 mmol/L [facility] Blood 07/08/2019 12:0 7 PM EST 07/08/2019 12:16 PM EST us Akshat A Bigda DO LAB BLOOD ORDERABLES Final Resul t Performing Organization Address [facility] Co de Phone Number [address] [address] documented in this encounter Visit Diagnoses Diagnosis Myxedema heart disease- Primary Unspecified hypothyroidism documented in this encounter Additional Health Concerns Infection Onset Date Last Indicated Resolved Time CoV-Risk 06/30/2021 06/30/2021 06/30/2021 8:35 AM EST COVID-19 06/30/2021 06/30/2021 07/21/2021 1:21 AM EST CoV-Risk 09/10/2023 09/10/2023 09/21/2023 1:23 AM EDT documented as of this encounter Care Teams Director Of Community Life Relationship Specialty Start Date End Date Akshat Jacobs DO [email or web address] PCP - General 03/27/17 documented as of this encounter Additional Source Comments The information contained in this document represents components of the legal health record. It is not the complete legal health record.[facility]
--- OUTSIDE RECORDS SUMMARY | 2025-02-17 07:57 | XMS_ITS | Encounter Summary ---
Author Organization [facility] Address [address] [place] [address] Phone Care Team Providers Care Roll Up Machine Operator Name Role Phone Akshat Jacobs DO Primary Care Provider [phone] Encounter Details Date Type Department Care Team ([facility] st Contact Info) Description 06/20/2019 Transcribe Orders Virtual Department [address] [place] [address] Akshat Jacobs DO [address] [facility] [place] [address] [place] [address] [email or web address] Social History Tobacco Use Types Packs/Day Years [...] documented as of this encounter Care Teams Roll Up Machine Operator Relationship Specialty Start Date End Date Akshat Jacobs DO [email or web address] PCP - General 03/27/17 documented as of this encounter Additional Source Comments The information contained in this document represents components of the legal health record. It is not the complete legal health record.[facility]
--- OUTSIDE RECORDS SUMMARY | 2025-02-17 07:57 | XMS_ITS | Encounter Summary ---
Author Organization [facility] Address [address] [place] [address] Phone Care Team Providers Care Lcpc Name Role Phone Akshat Jacobs DO Primary Care Provider Encounter Details Date Type Department Care Team ([facility] st Contact Info) Description 11/19/2023 Transcribe Orders Virtual Department [address] [place] [address] Akshat Jacobs DO [address] [facility] [place] [address] [place] [address] [email or web address] Encounter for screening for osteoporosis (Primary Dx) Social History Tobacco Use Types [...] this encounter Visit Diagnoses Diagnosis Encounter for screening for osteoporosis- Primary documented in this encounter Care Teams Lcpc Relationship Specialty Start Date End Date Akshat Jacobs DO [email or web address] PCP - General 03/27/17 documented as of this encounter Additional Source Comments The information contained in this document represents components of the legal health record. It is not the complete legal health record.[facility]
--- OUTSIDE RECORDS SUMMARY | 2025-02-17 07:57 | XMS_ITS | Encounter Summary ---
Author Organization [facility] Address [address] [place] [address] Phone Care Team Providers Care Dining Service Supervisor Name Role Phone Akshat Jacobs DO Primary Care Provider Reason for Referral * Consultation (Elective) - Closed Specialty Diagnoses / Procedures Referred By Bethany reed Referred To Contact Diagnoses 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, unspecified chronicity Pulmonary embolism, other, unspecified chronicity, unspecified whether acute cor pulmonale present Akshat Jacobs DO Phone: tel: fax: [email or web address] [facility] [address] [place] [address] Phone: tel: Referral ID Status Reason Start Date Expiration Date Visits Re quested Visits Authorized [id number] Closed 06/15/2021 06/15/2022 1 1 Encounter Details Date Type Department Care Team (Late st Contact Info) Description 06/15/2021 Transcribe Orders Virtual Department [address] [place] [address] Akshat Jacobs DO [address] [place] [address] [email or web address] 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, unspecified chronicity (Primary Dx); Pulmonary embolism, other, unspecified chronicity, unspecified whether acute cor pulmonale present Social History Tobacco Use Types Packs/Day Years [...] Scheduled Referrals Name Type Priority Associated Diagnoses Order Schedule Ambulatory referral to [facility] Anticoagulation Clinic Outpatient Referral Routine 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, unspecified chronicity Pulmonary embolism, other, unspecified chronicity, unspecified whether acute cor pulmonale present Ordered: 06/15/2021 documented as of this encounter Visit Diagnoses Diagnosis 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, unspecified chronicity- Primary Pulmonary embolism, other, unspecified chronicity, unspecified whether acute cor pulmonale present documented in this encounter Additional Health Concerns Infection Onset Date Last Indicated Resolved Time CoV-Risk 06/30/2021 06/30/2021 06/30/2021 8:35 AM EST COVID-19 06/30/2021 06/30/2021 07/21/2021 1:21 AM EST CoV-Risk 09/10/2023 09/10/2023 09/21/2023 1:23 AM EDT documented as of this encounter Care Teams Dining Service Supervisor Relationship Specialty Start Date End Date Akshat Jacobs DO [email or web address] PCP - General 03/27/17 documented as of this encounter Additional Source Comments The information contained in this document represents components of the legal health record. It is not the complete legal health record.[facility]
--- OUTSIDE RECORDS SUMMARY | 2025-02-17 07:57 | XMS_ITS | Encounter Summary ---
Author Organization [facility] Address [address] [place] [address] Phone Care Team Providers Care Adult School Teacher Name Role Phone Akshat Jacobs DO Primary Care Provider Reason for Referral * Outpatient Procedure - Closed Specialty Diagnoses / Procedures Referred By Bethany reed Referred To Contact Diagnoses Other forms of dyspnea Procedures Adult Echo TTE Akshat Jacobs DO Phone: tel: fax: mailto:[email or web address] Referral ID Status Reason Start Date Expiration Date Visits Re quested Visits Authorized [id number] Closed 01/11/2019 03/12/2019 1 1 Encounter Details Date Type Department Care Team ([facility] st Contact Info) Description 12/09/2018 Transcribe Orders Virtual Department [address] [place] [address] Akshat Jacobs DO [address] [facility] [place] [address] Other forms of dyspnea (Primary Dx) Social History Tobacco Use Types [...] documented as of this encounter Results * TTE COMPREHENSIVE (01/17/2019 11:09 AM EDT) Body Surface Area 1.9 m2 Weight 86 kg Systolic BP 162 mmHg Diastolic BP 84 mmHg Left Atrium Dimension Anterior-Posterior 36 15 - 40 mm Aortic Valve Peak Velocity 132.0 cm/s Aortic Valve Peak Gradient 7.00 mmHg Aortic Sinus Diameter 30 mm Ascending Aorta Diameter 31 mm Inferior Vena Cava Diameter 16 0.0 - 21 mm Interventricular Septum Thickness 11 mm Left Ventricle Internal Diameter End Diastole 51 37 - 52 mm Left Ventricle Internal Diameter End Systole 37 22 - 35 mm Left Ventricular Outflow Tract Diameter 22.0 mm LVOT VTI REST 180.00 mm Left Ventricular Outflow Tract Velocity 0.8 m/s Left Ventricular Outflow Tract Gradient at Rest 2.00 mmHg Left Ventricular Posterior Wall Thickness 10 mm Ejection Fraction 50 50 - 75 Percent Mitral Valve Deceleration Time 215.00 ms Mitral Valve A Wave Speed 69.4 cm/s Mitral Valve E Wave Speed 73.2 cm/s Right Ventricle Basal Diameter 22.10 25 - 41 mm Tricuspid Valve Peak Velocity 2.1 m/s Raw LV EF% 47 % Right Ventricle Peak Systolic Pressure 21 mmHg Right Atrium Pressure Estimated 3 mmHg Right Ventricle to Right Atrium Pressure Gradient 18 mmHg Aortic Valve Sinus Index 1 16 19 - 27 mm Ascending Aorta Diameter 16 mm Aortic Sinus Index 16 mm Ascending Aorta Index 16 mm Left Atrial Volume 76 mL Left Atrial Volume Index 40.00 mL/m2 Height 155 cm Anatomical Region Laterality Modality Heart Ultrasound Narrative 01/17/2019 11:22 AM EDT Normal LV size with borderline LV dysfunction EF 50%. There is moderate diastolic dysfunction and elevated E/E prime ratio suggesting elevated left atrial pressure. Left atrium is mildly dilated. There is mild to moderate mitral regurgitation. Normal PA pressure estimation. Compared to study from 2017, no real change. Left Ventricle The left ventricular cavity size and wall thickness are normal. Left ventricular systolic function is normal. There are no segmental left ventricular wall motion abnormalities noted. The estimated ejection fraction is 50% (Normal 50-75%). The left ventricular ejection fraction was measured by the single dimension method. Doppler profiles appear consistent with impaired left ventricular relaxation (a sign of diastolic dysfunction). There is no evidence of left ventricular thrombus. Right Ventricle The right ventricular size is normal. No evidence of right ventricular hypertrophy. The right ventricular systolic function is normal. Left Atrium The left atrium is mildly dilated. The left atrial anterior-posterior dimension measures 36 mm (normal 15-40 mm). The LA volume is 76 mL. The LA volume index is 40 mL/m2 (normal indexed value is 16-34 mL/m2). Pulmonary vein connections were not well seen. Right Atrium The right atrium is normal in size. The IVC is normal in size (2.1cm or less). The IVC measures 16 mm (normal <=21 mm). The IVC demonstrates normal collapse with inspiration which is consistent with normal RA pressure. Mitral Valve The mitral valve appears normal. The E/A ratio is 1.1. The Med E' Liam is 4 cm/s and the Lat E' Liam is 5.7 cm/s. The E/E' AVG is 14.9. There is no evidence of mitral stenosis. There is mild to moderate mitral regurgitation detected by spectral and color Doppler. Tricuspid Valve The tricuspid valve appears normal. There is no evidence of tricuspid stenosis. There is evidence of trace tricuspid regurgitation by color and spectral Doppler. Normal pulmonary pressure. The RV systolic pressure was estimated from the peak TV regurgitant velocity. The estimated RV systolic pressure is 21 mmHg assuming a right atrial pressure of 3 mmHg. Aortic Valve The aortic valve appears normal. The aortic valve is tricuspid. There is no evidence of valvular aortic stenosis. The peak aortic valve gradient is 7 mmHg. There is no evidence of aortic regurgitation by color and spectral Doppler. The visualized portions of the thoracic aorta appear normal. Pulmonic Valve The pulmonary valve appears normal. There is no evidence of pulmonic stenosis. There is evidence of mild pulmonary regurgitation by color and spectral Doppler. Pericardium There is no evidence of pericardial effusion. There no evidence of a pleural effusion. Interatrial Septum The interatrial septum appears normal. Interventricular Septum Interventricular septal motion appears normal. General Findings The image quality was fair (3). Technique(s) used in the evaluation: Color flow Doppler and Spectral Doppler. The predominant rhythm during the study was sinus bradycardia. Comparison Findings Compared to a prior TTE from 02/28/2017 us Akshat A Bigda DO CV ECHO ORDERABLES Final Result documented in this encounter Visit Diagnoses Diagnosis Other forms of dyspnea- Primary Other forms of dyspnea documented in this encounter Additional Health Concerns Infection Onset Date Last Indicated Resolved Time CoV-Risk 06/30/2021 06/30/2021 06/30/2021 8:35 AM EST COVID-19 06/30/2021 06/30/2021 07/21/2021 1:21 AM EST CoV-Risk 09/10/2023 09/10/2023 09/21/2023 1:23 AM EDT documented as of this encounter Care Teams Adult School Teacher Relationship Specialty Start Date End Date Akshat Jacobs DO [email or web address] PCP - General 03/27/17 documented as of this encounter Additional Source Comments The information contained in this document represents components of the legal health record. It is not the complete legal health record.[facility]
--- OUTSIDE RECORDS SUMMARY | 2025-02-17 07:57 | XMS_ITS | Encounter Summary ---
Author Organization [facility] Address [address] [facility] [address] [place] [address] Phone Care Team Providers Care Gore Stitcher Name Role Phone Akshat Jacobs DO Primary Care Provider [phone] Encounter Details Date Type Department Care Team ([facility] st Contact Info) Description 06/09/2021 Transcribe Orders [facility] [address] [place] [address] Akshat Jacobs DO [address] [facility] [place] [address] [place] [address] Essential hypertension, benign (Primary Dx); Crohn's disease with complication, unspecified gastrointestinal tract location; Hypothyroidism, adult Social History Tobacco Use Types Packs/Day Years [...] documented as of this encounter Results * CBC and differential (06/09/2021 10:53 AM EST) WBC 5.33 4.00 - 11.00 K/uL [facility] RBC 4.37 3.72 - 5.30 M/uL [facility] HGB 12.7 11.4 - 15.9 g/dL [facility] HCT 38.0 34.2 - 46.8 % [facility] PLT 331 140 - 430 K/uL [facility] MCV 87.0 78.0 - 97.0 fL [facility] MCH 29.1 25.0 - 33.0 pg [facility] MCHC 33.4 32.0 - 36.0 g/dL [facility] RDW 14.6 11.0 - 16.0 % [facility] MPV 10.6 8.4 - 12.8 fl [facility] NRBC 0.00 0 /100 WBCs [facility] ABSOLUTE NRBC 0.00 0 K/uL [facility] DIFF [employer] [facility] NEUTS 58.7 43.0 - 75.0 % [facility] LYMPHS 28.3 18.2 - 47.4 % [facility] MONOS 8.4 4.00 - 11.00 % [facility] EOS 3.6 0.0 - 8.0 % [facility] BASOS 0.8 0.0 - 2.0 % [facility] Granulocytes, immature (%) 0.2 0.0 - 0.9 % [facility] ABSOLUTE NEUTS 3.13 1.80 - 7.70 K/uL [facility] ABSOLUTE LYMPHS 1.51 1.00 - 3.10 K/uL [facility] ABSOLUTE MONOS 0.45 0.20 - 0.80 K/uL [facility] ABSOLUTE EOS 0.19 0.00 - 0.80 K/uL [facility] ABSOLUTE BASOS 0.04 0.00 - 0.09 K/uL [facility] Granulocytes, immature 0.01 0.00 - 0.05 K/uL [facility] Blood 06/09/2021 10:5 3 AM EST 06/09/2021 11:11 AM EST us Akshat A Bigda DO LAB BLOOD ORDERABLES Final Resul t [facility] [address] [place] [address] * Vitamin B12 (06/09/2021 10:53 AM EST) VITAMIN B12 419 232 - 1,245 pg/mL [facility] Blood 06/09/2021 10:5 3 AM EST 06/09/2021 11:11 AM EST us Akshat A Bigda DO LAB BLOOD ORDERABLES Final Resul t Performing Organization Address [facility] Co de Phone Number [address] [address] * (ABNORMAL) 25-OH vitamin D (06/09/2021 10:53 AM EST) 25 OH VIT D (TOTAL) 26(L) 30 - 60 ng/mL [facility] Blood 06/09/2021 10:5 3 AM EST 06/09/2021 11:11 AM EST us Akshat A Bigda DO LAB BLOOD ORDERABLES Final Resul t Performing Organization Address [facility] Phone Number [address] [address] * (ABNORMAL) C-Reactive Protein (06/09/2021 10:53 AM EST) C REACTIVE PROTEIN 7.7(H) 0.0 - 4.0 mg/L [facility] Blood 06/09/2021 10:5 3 AM EST 06/09/2021 11:11 AM EST us Akshat A Bigda DO LAB BLOOD ORDERABLES Final Resul t Performing Organization Address [facility] de Phone Number [address] [address] * (ABNORMAL) TSH (06/09/2021 10:53 AM EST) TSH 6.37(H) 0.27 - 4.20 uIU/mL [facility] Blood 06/09/2021 10:5 3 AM EST 06/09/2021 11:11 AM EST us Akshat A Bigda DO LAB BLOOD ORDERABLES Final Resul t [address] [address] * (ABNORMAL) Hemoglobin A1c (06/09/2021 10:53 AM EST) HEMOGLOBIN A1C 6.5(H) 4.3 - 5.8 % [facility] Blood 06/09/2021 10:5 3 AM EST 06/09/2021 11:11 AM EST us Akshat A [employer] DO LAB BLOOD ORDERABLES Final Resul t Performing Organization Address [facility] Co de Phone Number [address] [address] * (ABNORMAL) Comprehensive metabolic panel (06/09/2021 10:53 AM EST) SODIUM 136 133 - 146 mmol/L [facility] POTASSIUM 4.7 3.3 - 5.1 mmol/L [facility] CHLORIDE 102 96 - 108 mmol/L [facility] CO2 20(L) 21 - 35 mmol/L [facility] BUN 25(H) 6 - 19 mg/dL [facility] CREATININE 1.40 0.5 - 1.5 mg/dL [facility] GLUCOSE 115(H) 70 - 99 mg/dL [facility] ALBUMIN 4.2 3.9 - 4.8 g/dL [facility] TOTAL PROTEIN 7.3 6.5 - 8.0 g/dL [facility] CALCIUM 9.5 8.4 - 10.3 mg/dL [facility] ALKALINE PHOSPHATASE 53 39 - 117 U/L [facility] TOTAL BILIRUBIN 0.4 0.0 - 1.2 mg/dL [facility] AST 27 0 - 37 U/L [facility] ALT 16 0 - 40 U/L [facility] GLOBULIN 3.1 1 - 4.8 g/dL [facility] EGFR 40(L) >59 mL/min/1.7 3m2 [facility] Comment:Estimated glomerular filtration rate calculated using the CKD-EPI refit equation. ANION GAP 19 10 - 20 mmol/L [facility] Blood 06/09/2021 10:5 3 AM EST 06/09/2021 11:11 AM EST us Akshat Jacobs DO LAB BLOOD ORDERABLES Final Resul t [facility] [address] [place] [address] documented in this encounter Visit Diagnoses Diagnosis Essential hypertension, benign- Primary Crohn's disease with complication, unspecified gastrointestinal tract location Hypothyroidism, adult Other specified acquired hypothyroidism documented in this encounter Additional Health Concerns Infection Onset Date Last Indicated Resolved Time CoV-Risk 06/30/2021 06/30/2021 06/30/2021 8:35 AM EST COVID-19 06/30/2021 06/30/2021 07/21/2021 1:21 AM EST CoV-Risk 09/10/2023 09/10/2023 09/21/2023 1:23 AM EDT documented as of this encounter Care Teams Gore Stitcher Relationship Specialty Start Date End Date Akshat Jacobs DO PCP - General 03/27/17 documented as of this encounter Additional Source Comments The information contained in this document represents components of the legal health record. It is not the complete legal health record.[facility]
--- OUTSIDE RECORDS SUMMARY | 2025-02-17 07:57 | XMS_ITS | Encounter Summary ---
Author Organization [facility] Address [address] [place] [address] Phone Care Team Providers Care Contract Driver Name Role Phone Akshat Jacobs DO Primary Care Provider Encounter Details Date Type Department Care Team (Late st Contact Info) Description 10/06/2022 Procedure [facility] [address] [place] [address] Social History Tobacco Use Types Packs/Day Years [...] documented as of this encounter Care Teams Contract Driver Relationship Specialty Start Date End Date Akshat Jacobs DO PCP - General 03/27/17 documented as of this encounter Additional Source Comments The information contained in this document represents components of the legal health record. It is not the complete legal health record.[facility]
--- OUTSIDE RECORDS SUMMARY | 2025-02-17 07:57 | XMS_ITS | Encounter Summary ---
Author Organization [facility] Address [address] [place] [address] Phone Care Team Providers Care Inpatient Care Manager Rn Name Role Phone Akshat Jacobs DO Primary Care Provider [phone] Reason for Referral * MRI/CAT Scan - Closed Specialty Diagnoses / Procedures Referred By Bethany reed Referred To Contact Radiology Diagnoses Right flank pain Abdominal pain, unspecified abdominal location Procedures CT Abdomen/Pelvis Akshat Jacobs DO Phone: tel: fax: mailto:[email or web address] Referral ID Status Reason Start Date Expiration Date Visits Re quested Visits Authorized [id number] Closed 09/10/2019 01/15/2020 1 1 Encounter Details Date Type Department Care Team (Late st Contact Info) Description 09/10/2019 Transcribe Orders Virtual Department [address] [place] [address] Akshat Jacobs DO [address] [place] [address] [email or web address] Management Right flank pain (Primary Dx); Abdominal pain, unspecified abdominal location Social History Tobacco Use Types Packs/Day Years [...] documented as of this encounter Results * CT ABDOMEN/PELVIS WITHOUT CONTRAST (12/23/2019 2:01 PM EDT) Anatomical Region Laterality Modality Abdomen, Pelvis Computed Tomogra phy 12/23/2019 2:15 PM EDT Impressions 12/23/2019 2:24 PM EDT No imaging correlate for right flank pain identified. No nephroureteral calculi or hydronephrosis. Narrative 12/23/2019 2:24 PM EDT PROCEDURE: CT ABDOMEN/PELVIS WITHOUT CONTRAST TECHNIQUE: Diagnostic CT of the abdomen and pelvis WITHOUT intravenous contrast. COMPARISON: CT abdomen and pelvis 08/06/2016 FINDINGS: ABSENCE OF INTRAVENOUS CONTRAST DECREASES SENSITIVITY FOR DETECTION OF FOCAL LESIONS AND VASCULAR PATHOLOGY. LOWER THORAX: Trace atelectasis. HEPATOBILIARY: No focal hepatic lesions. No biliary ductal dilatation. SPLEEN: No splenomegaly. PANCREAS: No focal masses or ductal dilatation. ADRENALS: No adrenal nodules. KIDNEYS/URETERS: No hydronephrosis or calculi. PELVIC ORGANS/BLADDER: Obscured by metallic streak artifact. Hysterectomy. PERITONEUM / RETROPERITONEUM: No free air or fluid. LYMPH NODES: No lymphadenopathy. VESSELS: Normal caliber aorta. Mild aortoiliac vascular calcifications. GI TRACT: Large sliding-type hiatal hernia containing stomach fundus, similar to prior exam. No bowel distention or wall thickening. Diverticulosis of the descending and sigmoid colon. Appendectomy. BONES AND SOFT TISSUES: Left hip arthroplasty. Right hip joint degenerative changes. No suspicious osseous lesion. Procedure Note Chay Herbert MD - 12/23/2019 PROCEDURE: CT ABDOMEN/PELVIS WITHOUT CONTRAST TECHNIQUE: Diagnostic CT of the abdomen and pelvis WITHOUT intravenous contrast. COMPARISON: CT abdomen and pelvis 08/06/2016 FINDINGS: ABSENCE OF INTRAVENOUS CONTRAST DECREASES SENSITIVITY FOR DETECTION OFFOCAL LESIONS AND VASCULAR PATHOLOGY. LOWER THORAX: Trace atelectasis. HEPATOBILIARY: No focal hepatic lesions. No biliary ductal dilatation. SPLEEN: No splenomegaly. PANCREAS: No focal masses or ductal dilatation. ADRENALS: No adrenal nodules. KIDNEYS/URETERS: No hydronephrosis or calculi. PELVIC ORGANS/BLADDER: Obscured by metallic streak artifact.Hysterectomy. PERITONEUM / RETROPERITONEUM: No free air or fluid. LYMPH NODES: No lymphadenopathy. VESSELS: Normal caliber aorta. Mild aortoiliac vascular calcifications. GI TRACT: Large sliding-type hiatal hernia containing stomach fundus,similar to prior exam. No bowel distention or wall thickening.Diverticulosis of the descending and sigmoid colon. Appendectomy. BONES AND SOFT TISSUES: Left hip arthroplasty. Right hip jointdegenerative changes. No suspicious osseous lesion. IMPRESSION: No imaging correlate for right flank pain identified. No nephroureteralcalculi or hydronephrosis. us Akshat Jacobs DO IMG CT ABD/PELVIS Final Result documented in this encounter Visit Diagnoses Diagnosis Right flank pain- Primary Abdominal pain, unspecified site Abdominal pain, unspecified abdominal location Right flank pain Abdominal pain, unspecified site Abdominal pain, unspecified abdominal location documented in this encounter Additional Health Concerns Infection Onset Date Last Indicated Resolved Time CoV-Risk 06/30/2021 06/30/2021 06/30/2021 8:35 AM EST COVID-19 06/30/2021 06/30/2021 07/21/2021 1:21 AM EST CoV-Risk 09/10/2023 09/10/2023 09/21/2023 1:23 AM EDT documented as of this encounter Care Teams Inpatient Care Manager Rn Relationship Specialty Start Date End Date Akshat Jacobs DO [email or web address] PCP - General 03/27/17 documented as of this encounter Additional Source Comments The information contained in this document represents components of the legal health record. It is not the complete legal health record.[facility]
--- OUTSIDE RECORDS SUMMARY | 2025-02-17 07:57 | XMS_ITS | Encounter Summary ---
Author Organization [facility] Address [address] [place] [address] Phone Care Team Providers Care Junior Systems Engineer Name Role Phone Akshat Jacobs DO Primary Care Provider [phone] Encounter Details Date Type Department Care Team (Late st Contact Info) Description 04/20/2021 Procedure Pass [address] [address] Social History Tobacco Use Types Packs/Day Years [...] documented as of this encounter Care Teams Junior Systems Engineer Relationship Specialty Start Date End Date Akshat Jacobs DO PCP - General 10/17/17 documented as of this encounter Additional Source Comments The information contained in this document represents components of the legal health record. It is not the complete legal health record.[facility]
--- OUTSIDE RECORDS SUMMARY | 2025-02-17 07:57 | XMS_ITS | Encounter Summary ---
Author Organization [facility] Address [address] [facility] [address] [place] [address] Phone Care Team Providers Care Tube Mill Operator Name Role Phone Akshat Jacobs DO Primary Care Provider [phone] Encounter Details Date Type Department Care Team ([facility] st Contact Info) Description 11/29/2018 Ancillary Orders Virtual Department 30 [place] [address] Akshat Jacobs DO [address] [facility] [place] [address] [place] [address] [email or web address] Breast screening Social History Tobacco Use Types Packs/Day Years [...] MAMMOGRAM SCREENING WITH TOMOSYNTHESIS WITH CAD (BILATERAL) (12/06/2018 11:34 AM EDT) Anatomical Region Laterality Modality Breast Left, Breast Right, Breast Bilateral Bila teral Mammography 12/06/2018 11:3 8 AM EDT Impressions 12/06/2018 11:40 AM EDT Stable appearance relative to prior imaging. No findings suggestive of malignancy are seen. BI-RADS CATEGORY: 1 - Negative. DENSITY: The breast tissue is almost entirely fat. POS - [id number] Narrative 12/06/2018 11:40 AM EDT Full-field digital mammography is obtained with computer-aided detection. Comparison with prior imaging from04/20/2016 is made with older imaging dating back as far as11/10/2010 also reviewed. There is fatty fibroglandular density evident in the breasts. In addition to 2-D C view imaging, tomosynthesis images are obtained in two projections of each breast. No dominant soft tissue mass of concern, suspicious cluster of calcifications, significant interval skin changes, or architectural distortion is identified. Procedure Note Hubert Barrientos MD - 12/06/2018 Full-field digital mammography is obtained with computer-aided detection.Comparison with prior imaging from04/20/2016 is made with older imagingdating back as far as11/10/2010 also reviewed. There is fatty fibroglandular density evident in the breasts. In additionto 2-D C view imaging, tomosynthesis images are obtained in twoprojections of each breast. No dominant soft tissue mass of concern, suspicious cluster ofcalcifications, significant interval skin changes, or architecturaldistortion is identified. IMPRESSION: Stable appearance relative to prior imaging. No findings suggestive ofmalignancy are seen. BI-RADS CATEGORY: 1 - Negative. DENSITY: The breast tissue is almost entirely fat. POS - [id number] Akshat Jacobs DO IMG MG EXAMS Final Result documented in this encounter Visit Diagnoses Diagnosis Breast screening Breast screening, unspecified Breast screening Breast screening, unspecified documented in this encounter Additional Health Concerns Infection Onset Date Last Indicated Resolved Time CoV-Risk 06/30/2021 06/30/2021 06/30/2021 8:35 AM EST COVID-19 06/30/2021 06/30/2021 07/21/2021 1:21 AM EST CoV-Risk 09/10/2023 09/10/2023 09/21/2023 1:23 AM EDT documented as of this encounter Care Teams Tube Mill Operator Relationship Specialty Start Date End Date Akshat Jacobs DO [email or web address] PCP - General 03/27/17 documented as of this encounter Additional Source Comments The information contained in this document represents components of the legal health record. It is not the complete legal health record.[facility]
--- OUTSIDE RECORDS SUMMARY | 2025-02-17 07:57 | XMS_ITS | Encounter Summary ---
Author Organization [facility] Address [address] [place] [address] Phone Care Team Providers Care Ladler Name Role Phone Akshat Jacobs DO Primary Care Provider [phone] Encounter Details Date Type Department Care Team ([facility] st Contact Info) Description 07/25/2017 Transcribe Orders Virtual Department 30 [place] [address] Akshat Jacobs DO [address] [facility] [place] [address] Social History Tobacco Use Types Packs/Day Years [...] documented as of this encounter Care Teams Ladler Relationship Specialty Start Date End Date Akshat Jacobs DO [email or web address] PCP - General 03/27/17 documented as of this encounter Additional Source Comments The information contained in this document represents components of the legal health record. It is not the complete legal health record.[facility]
--- OUTSIDE RECORDS SUMMARY | 2025-02-17 07:57 | XMS_ITS | Encounter Summary ---
Author Organization [facility] Address [address] [place] [address] Phone Care Team Providers Care Track Repair Person Name Role Phone Akshat Jacobs DO Primary Care Provider [phone] Reason for Referral * Consultation (Routine) - Closed Specialty Diagnoses / Procedures Referred By Bethany reed Referred To Contact Diagnoses Pulmonary embolism, other, unspecified chronicity, unspecified whether acute cor pulmonale present 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, unspecified chronicity Akshat Jacobs DO Phone: tel: fax: [email or web address] [facility] [address] [place] [address] Phone: tel: Referral ID Status Reason Start Date Expiration Date Visits Re quested Visits Authorized [id number] Closed 08/02/2020 08/02/2021 1 1 Encounter Details Date Type Department Care Team (Late st Contact Info) Description 08/02/2020 Transcribe Orders Virtual Department [address] [place] [address] Akshat Jacobs DO [address] [place] [address] [email or web address] Pulmonary embolism, other, unspecified chronicity, unspecified whether acute cor pulmonale present (Primary Dx); 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, unspecified chronicity Social History Tobacco Use Types Packs/Day Years [...] on file documented as of this encounter Procedures Procedure Name Priority Date/Time Associated Diagnosis Comments AMB REFERRAL TO [facility] ANTICOAGULATION [facility]IC Routine 08/23/2020 12:02 PM EDT Pulmonary embolism, other, unspecified chronicity, unspecified whether acute cor pulmonale present 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, unspecified chronicity documented in this encounter Results * Ambulatory referral to [facility] Anticoagulation Clinic (08/23/2020 12:02 PM EDT) us Akshat Jacobs DO AMB [facility] REFERRALS Final Result documented in this encounter Visit Diagnoses Diagnosis Pulmonary embolism, other, unspecified chronicity, unspecified whether acute cor pulmonale present- Primary 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, unspecified chronicity documented in this encounter Additional Health Concerns Infection Onset Date Last Indicated Resolved Time CoV-Risk 06/30/2021 06/30/2021 06/30/2021 8:35 AM EST COVID-19 06/30/2021 06/30/2021 07/21/2021 1:21 AM EST CoV-Risk 09/10/2023 09/10/2023 09/21/2023 1:23 AM EDT documented as of this encounter Care Teams Track Repair Person Relationship Specialty Start Date End Date Akshat Jacobs DO PCP - General 03/27/17 documented as of this encounter Additional Source Comments The information contained in this document represents components of the legal health record. It is not the complete legal health record.[facility]
--- OUTSIDE RECORDS SUMMARY | 2025-02-17 07:57 | XMS_ITS | Encounter Summary ---
Author Organization [facility] Address [address] [place] [address] Phone Care Team Providers Care Medical Anthropologist Name Role Phone Akshat Jacobs DO Primary Care Provider Reason for Referral * MRI/CAT Scan - Closed Specialty Diagnoses / Procedures Referred By Bethany reed Referred To Contact Radiology Diagnoses Nonintractable headache, unspecified chronicity pattern, unspecified headache type Postural dizziness with presyncope Neck pain Procedures CT Head Mirian Dumas CNP Phone: tel: fax: [email or web address] Referral ID Status Reason Start Date Expiration Date Visits Re quested Visits Authorized [id number] Closed 08/29/2017 08/29/2018 1 1 Encounter Details Date Type Department Care Team (Latest Contact Info) Description 08/29/2017 Ancillary Orders Virtual Department [address] [place] [address] Mirian Dumas CNP [address] [place] [address] Nonintractable headache, unspecified chronicity pattern, unspecified headache type; Postural dizziness with presyncope; Neck pain Social History Tobacco Use Types Packs/Day Years [...] as of this encounter Results * XR CERVICAL SPINE 4-5 VIEWS (09/03/2017 3:09 PM EDT) Anatomical Region Laterality Modality C-spine Radiographic Kaci ging 09/03/2017 3:23 PM EDT Impressions 09/03/2017 3:26 PM EDT Findings consistent with cervical spondylosis and mild grade 1 retrolisthesis of C3 on C4 which is similar to that evident previously. Mild bilateral facet arthropathy and foraminal encroachment similar to that evident in the past as well. S/S: Intractable headache cervical spondylosis, postural dizziness, neck pain times several months POS - [id number] Narrative 09/03/2017 3:26 PM EDT COMPARISON: Cervical spine x-rays February 18, 2014 FINDINGS: AP, lateral, both oblique, and odontoid views of the cervical spine are obtained. The odontoid appears intact. There is loss of disc space height and mild retrolisthesis at C3-4. This was present previously. Minor disc space narrowing at C4-5 is unchanged as well. There is slight spurring in the lower cervical spine as well which remain stable in addition. On oblique views there is mild neural foraminal encroachment evident bilaterally at C3-4 and C4-5. This appears unchanged. No acute compression fracture or subluxation is seen. No prevertebral soft tissue swelling is noted. The lung apices are clear. Procedure Note Hubert Ch MD - 09/03/2017 COMPARISON: Cervical spine x-rays February 18, 2014 FINDINGS: AP, lateral, both oblique, and odontoid views of the cervical spine areobtained. The odontoid appears intact. There is loss of disc space height and mild retrolisthesis at C3-4. Thiswas present previously. Minor disc space narrowing at C4-5 is unchanged aswell. There is slight spurring in the lower cervical spine as well whichremain stable in addition. On oblique views there is mild neural foraminal encroachment evidentbilaterally at C3-4 and C4-5. This appears unchanged. No acute compression fracture or subluxation is seen. No prevertebral soft tissue swelling is noted. The lung apices are clear. IMPRESSION: Findings consistent with cervical spondylosis and mild grade 1retrolisthesis of C3 on C4 which is similar to that evident previously.Mild bilateral facet arthropathy and foraminal encroachment similar tothat evident in the past as well. S/S: Intractable headache cervical spondylosis, postural dizziness, neckpain times several months POS - [id number] Mirian Chandni Alesia SNOW PLOW OPERATOR IMG XR SPINE Final Resul t * CT HEAD WITHOUT CONTRAST (09/03/2017 2:45 PM EDT) Anatomical Region Laterality Modality Head Computed Tomogra phy 09/03/2017 3:00 PM EDT Impressions 09/03/2017 3:10 PM EDT No intracranial hemorrhage, mass, or infarction detected. No specific source of the patient's headaches is detected. TOTAL CTDIvol: 58.4 mGy POS: [id number] Edited by: Alycia Stoner on 09/03/2017 3:07 PM Narrative 09/03/2017 3:10 PM EDT HISTORY: Non-intractable headache for 3 months. Neck pain. COMPARISON: January 25, 2014 and June 12, 2009. MRI June 13, 2009. TECHNIQUE: Unenhanced imaging obtained from skull base to vertex. Sagittal and coronal reformats generated. Manual dose reduction technique tailored for patient and site of imaging. FINDINGS: No abnormal intra or extra-axial blood or fluid collection, mass, or mass effect is identified. Sulci and ventricles appear unchanged. No prominent white matter changes or loss of reynolds-white matter differentiation. Pituitary not enlarged. Cerebellar tonsils not ectopic. No gross orbital lesion. Mastoids and middle ear spaces clear. Visualized paranasal sinuses clear. No calvarial destructive lesion identified. Procedure Note Jake Paz MD - 09/03/2017 HISTORY: Non-intractable headache for 3 months. Neck pain. COMPARISON: January 25, 2014 and June 12, 2009. MRI June 13, 2009. TECHNIQUE: Unenhanced imaging obtained from skull base to vertex.Sagittal and coronal reformats generated. Manual dose reduction techniquetailored for patient and site of imaging. FINDINGS: No abnormal intra or extra-axial blood or fluid collection, mass, or masseffect is identified. Sulci and ventricles appear unchanged. Noprominent white matter changes or loss of reynolds-white matterdifferentiation. Pituitary not enlarged. Cerebellar tonsils not ectopic.No gross orbital lesion. Mastoids and middle ear spaces clear.Visualized paranasal sinuses clear. No calvarial destructive lesionidentified. IMPRESSION: No intracranial hemorrhage, mass, or infarction detected. No specificsource of the patient's headaches is detected. TOTAL CTDIvol: 58.4 mGy POS: [id number] Edited by: Alycia Stoner on 09/03/2017 3:07 PM Mirian Dumas SNOW PLOW OPERATOR IMG CT HEAD/NECK Final Resu lt documented in this encounter Visit Diagnoses Diagnosis Nonintractable headache, unspecified chronicity pattern, unspecified headache type Postural dizziness with presyncope Neck pain Cervicalgia Nonintractable headache, unspecified chronicity pattern, unspecified headache type Postural dizziness with presyncope Neck pain Cervicalgia Nonintractable headache, unspecified chronicity pattern, unspecified headache type Postural dizziness with presyncope Neck pain Cervicalgia documented in this encounter Additional Health Concerns Infection Onset Date Last Indicated Resolved Time CoV-Risk 06/30/2021 06/30/2021 06/30/2021 8:35 AM EST COVID-19 06/30/2021 06/30/2021 07/21/2021 1:21 AM EST CoV-Risk 09/10/2023 09/10/2023 09/21/2023 1:23 AM EDT documented as of this encounter Care Teams Medical Anthropologist Relationship Specialty Start Date End Date Akshat Jacobs DO [email or web address] PCP - General 03/27/17 documented as of this encounter Additional Source Comments The information contained in this document represents components of the legal health record. It is not the complete legal health record.[facility]
--- OUTSIDE RECORDS SUMMARY | 2025-02-17 07:57 | XMS_ITS | Encounter Summary ---
Author Organization [facility] Address [address] [place] [address] Phone Care Team Providers Care Fiberglass Dowel Drawing Operator Name Role Phone Akshat Jacobs DO Primary Care Provider [phone] Encounter Details Date Type Department Care Team (Late st Contact Info) Description 08/29/2017 Procedure Pass [facility], Ct Scan - [address] [address] Social History Tobacco Use Types Packs/Day Years [...] documented as of this encounter Care Teams Fiberglass Dowel Drawing Operator Relationship Specialty Start Date End Date Akshat Jacobs DO PCP - General 10/17/17 documented as of this encounter Additional Source Comments The information contained in this document represents components of the legal health record. It is not the complete legal health record.[facility]
--- OUTSIDE RECORDS SUMMARY | 2025-02-17 07:57 | XMS_ITS | Encounter Summary ---
Author Organization [facility] Address [address] [place] [address] [place] [address] Phone Care Team Providers Care X Ray Equipment Mechanic Name Role Phone Akshat Jacobs Primary Care Provider [phone] Encounter Details Date Type Department Care Team (Latest Contact Info) Description 04/30/2017 Transcribe Orders [facility] [address] [place] [address] Mirian Dumas, REUSE TECHNICIAN [address] [place] [address] [email or web address] History of decreased renal function (Primary Dx) Social History Tobacco Use Types [...] Procedure Name Priority Date/Time Associated Diagnosis Comments CREATININE/EGFR Routine 04/30/2017 12:29 PM EST History of decreased renal function BUN Routine 04/30/2017 12:29 PM EST History of decreased renal function documented in this encounter Results * Creatinine/eGFR (04/30/2017 12:29 PM EST) CREATININE 0.90 0.5 - 1.5 mg/dL [facility] EGFR >60 >60 mL/min/1.7 3m2 [facility] Comment:Abnormal if <60. If patient is -Burmese, multiply the result by 1.21. Blood 04/30/2017 12:2 9 PM EST 04/30/2017 12:34 PM EST Mirian Dumas REUSE TECHNICIAN LAB BLOOD ORDERABLES Edited Result - Final Performing Organization Address [facility] Co de Phone Number [address] [address] * BUN (04/30/2017 12:29 PM EST) BUN 18 6 - 19 mg/dL [facility] Blood 04/30/2017 12:2 9 PM EST 04/30/2017 12:34 PM EST [facility] Center[facility] NestorDigital Authentication Technologiesivette [facility] LAB BLOOD ORDERABLES Edited Result - Final Performing Organization Address [facility] Co de Phone Number [address] [address] documented in this encounter Visit Diagnoses Diagnosis History of decreased renal function- Primary documented in this encounter Additional Health Concerns Infection Onset Date Last Indicated Resolved Time CoV-Risk 06/30/2021 06/30/2021 06/30/2021 8:35 AM EST COVID-19 06/30/2021 06/30/2021 07/21/2021 1:21 AM EST CoV-Risk 09/10/2023 09/10/2023 09/21/2023 1:23 AM EDT documented as of this encounter Care Teams X Ray Equipment Mechanic Relationship Specialty Start Date End Date Akshat Jacobs DO [email or web address] PCP - General 03/27/17 documented as of this encounter Additional Source Comments The information contained in this document represents components of the legal health record. It is not the complete legal health record.[facility]
--- OUTSIDE RECORDS SUMMARY | 2025-02-17 07:57 | XMS_ITS | Encounter Summary ---
Author Organization [facility] Address [address] [place] [address] Phone Care Team Providers Care Weigher Alloy Name Role Phone Akshat Jacobs DO Primary Care Provider [phone] Reason for Referral * Consultation (Elective) - Closed Specialty Diagnoses / Procedures Referred By Bethany reed Referred To Contact Diagnoses Pulmonary embolism and infarction Akshat Jacobs DO Phone: tel: fax: [email or web address] [facility] [address] [place] [address] Phone: tel: Referral ID Status Reason Start Date Expiration Date Visits Re quested Visits Authorized [id number] Closed 08/03/2017 06/07/2018 93 [phone] Encounter Details Date Type Department Care Team (Late st Contact Info) Description 08/03/2017 Transcribe Orders Virtual Department [address] [place] [address] Akshat Jacobs DO [address] [facility] [place] [address] [place] [address] [email or web address] Pulmonary embolism and infarction (Primary Dx) Social History Tobacco Use Types [...] Date/Time Associated Diagnosis Comments AMB REFERRAL TO [facility] Routine 08/20/2017 12:15 PM EDT Pulmonary embolism and infarction documented in this encounter Results * Ambulatory referral to [facility] An[facility] (08/20/2017 12:15 PM EDT) us Akshat Jacobs DO AMB [facility] REFERR[facility] Final Result documented in this encounter Visit Diagnoses Diagnosis Pulmonary embolism and infarction- Primary Other pulmonary embolism and infarction documented in this encounter Additional Health Concerns Infection Onset Date Last Indicated Resolved Time CoV-Risk 06/30/2021 06/30/2021 06/30/2021 8:35 AM EST COVID-19 06/30/2021 06/30/2021 07/21/2021 1:21 AM EST CoV-Risk 09/10/2023 09/10/2023 09/21/2023 1:23 AM EDT documented as of this encounter Care Teams Weigher Alloy Relationship Specialty Start Date End Date Akshat Jacobs DO PCP - General 03/27/17 documented as of this encounter Additional Source Comments The information contained in this document represents components of the legal health record. It is not the complete legal health record.[facility]
== END ==
LOC: HO.CARD 07:52
PROVIDERS: PCP Internal Medicine; Visit Provider Internal Medicine
DX: R06.09 Other forms of dyspnea (principal)
CPT/HCPCS: 78452; 93017; A9500; J0280; J2785

== ENCOUNTER → 2025-02-17 07:55 | Outpatient (BNV) | payer OTHER, SELFPAY | PROVIDERS: PCP Internal Medicine | DX: R06.02 Shortness of breath (principal) | CPT/HCPCS: 78452; 93016; 93018 ==

== ENCOUNTER 2025-04-22 13:21 | Outpatient (REF) | payer OTHER, SELFPAY ==
--- NOTE | ~2025-04-22 | XR_ITS ---
EXAMINATION: XR BILATERAL HIPS WITH AP PELVIS CLINICAL INFORMATION: PAIN IN RIGHT HIP COMPARISON: None available. TECHNIQUE: Pelvis 1 view. Bilateral hips each 2 views. FINDINGS: Severe right hip arthritis, with marked joint space loss, osteophytes, sclerosis. No visible acute fracture or dislocation. Status post left total hip arthroplasty. The femoral component of the prosthesis is appropriately aligned with the the acetabular component. There is orthopedic hardware in the lateral aspect of the proximal femur, with cerclage wires as well. Hardware is intact. No suspicious perihardware lucency. No acute periprosthetic fracture. Mild bilateral SI joint arthritis. Mild symphysis pubis degeneration. No suspicious bony lesions are seen. Surgical clips projected over the left pelvis. No abnormal soft tissue calcification. XR/XR hip BI w PEL1V IMPRESSION: * Severe right hip arthritis. * Left total hip arthroplasty, with additional postsurgical changes in the proximal femur. No acute periprosthetic fracture. No findings suggest hardware complications. * Additional findings and details above. Electronically signed by: Geoffrey Shrestha MD 04/23/2025 11:27 AM ARNIE MARIEE
--- OUTSIDE RECORDS SUMMARY | 2025-04-22 16:09 | XMS_ITS | Encounter Summary ---
Author Organization [facility] Address [address] [place] [address] Phone Care Team Providers Care Blood Bank Laboratory Technician Name Role Phone Akshat Jacobs DO Primary Care Provider [phone] Reason for Referral * Physical Therapy (Routine) - Closed Specialty Diagnoses / Procedures Referred By Bethany reed Referred To Contact Physical Therapy Diagnoses Encounter for rehabilitation System, Provider Not In, PhD [address] [place] [address] Phone: tel: Referral ID Status Reason Start Date Expiration Date Visits Re quested Visits Authorized [id number] Closed 05/23/2018 06/10/2018 1 1 Encounter Details Date Type Department Care Team (Late st Contact Info) Description 05/01/2018 Transcribe Orders [facility] [address] [place] [id number] Akshat Jacobs DO [address] [facility] [place] [address] [email or web address] Encounter for rehabilitation (Primary Dx) Social History [...] Diagnoses Orde r Schedule Ambulatory referral to [facility] Physical Therapy Outpatient Referral Routine Encounter [...] documented as of this encounter Care Teams Blood Bank Laboratory Technician Relationship Specialty Start Date End Date Akshat Jacobs DO [email or web address] PCP - General 03/27/17 documented as of this encounter Additional Source Comments The information contained in this document represents components of the legal health record. It is not the complete legal health record.[facility]
--- OUTSIDE RECORDS SUMMARY | 2025-04-22 16:09 | XMS_ITS | Encounter Summary ---
Author Organization [facility] Address [address] [place] [address] Phone Care Team Providers Care Adjunct Phlebotomy Instructor Name Role Phone Akshat Jacobs DO Primary Care Provider [phone] Encounter Details Date Type Department Care Team ([facility] st Contact Info) Description 07/25/2017 Transcribe Orders Virtual Department [address] [place] [address] Akshat Jacobs DO [address] [place] [address] [email or web address] Social History Tobacco Use Types Packs/Day Years [...] documented as of this encounter Care Teams Adjunct Phlebotomy Instructor Relationship Specialty Start Date End Date Akshat Jacobs DO [email or web address] PCP - General 03/27/17 documented as of this encounter Additional Source Comments The information contained in this document represents components of the legal health record. It is not the complete legal health record.[facility]
--- OUTSIDE RECORDS SUMMARY | 2025-04-22 16:09 | XMS_ITS | Data Portability ---
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) [facility] MODERATE MUST MEET 2 OUT OF 3 [...] EACH ELEMENT THAT IS COVERED Not available 12/08/2024 14:08:52 02/20/2025 02/20/2025 [id number] [place] [id number] (MILL LABORER) MDM MODERATE MUST MEET 2 OUT OF [...] EACH ELEMENT THAT IS COVERED Not available 02/20/2025 16:36:53 03/06/2025 03/06/2025 [id number] [place] [address] (MILL LABORER) MDM MODERATE MUST MEET 2 OUT OF [...] EACH ELEMENT THAT IS COVERED Not available 03/06/2025 15:03:56 04/10/2025 04/10/2025 [id number] [place] [id number] (MILL LABORER) MDM MODERATE MUST MEET 2 OUT OF [...] EACH ELEMENT THAT IS COVERED Not available 04/10/2025 14:17:44 Plan of Treatment Reminders Order Date Submit Date Provider Last Modified By Organization Details Last Modified Time Details Appointments None recorded. Lab HbA1c (hemoglobi n A1c), blood 2024 025 [facility] (Outpatient), [address] [place] [address], [address], 04:24:22 CBC w/ auto diff 2024 025 [facility] (Outpatient), [address] [place] [address], [address], 5 00:12:42 microalbum in/creatin ine, mass ratio, urine 2024 [facility] (Outpatient), [address] [place] [address], [address], 5 01:44:21 CMP, serum or plasma 2024 025 [facility] (Outpatient), [address] [place] [address], [address], 5 15:15:44 CBC w/ auto diff 2024 [facility] (Outpatient), [address] [place] [address], [address], 5 15:17:33 ESR (erythrocy te sedimentat ion rate), blood 2024 [facility], [address] [place] [address], [address], 5 15:17:33 magnesium, serum or plasma 2024 025 [facility], [address] [place] [address], [place], [address], 5 15:17:33 C reactive protein, QN, serum or plasma 2024 025 [facility], [address] [place] [address], [place], [address], 5 15:17:33 CK (creatine kinase), total, serum 2024 025 [facility], [address] [place] [address], [address], 5 15:17:33 uric acid, serum or plasma 2024 025 [facility], [address] [place] [address], [address], 5 15:17:33 PTH (parathyro id hormone), intact + calcium, serum or plasma 2024 025 [facility], [address] [place] [address], [address], 5 15:17:33 phosphorus , serum or plasma 2024 025 [facility], [address] [place] [address], [address], 5 15:17:33 lyme disease igg+igm, serum, reflex western blot 2024 025 [facility], [address] [place] [address], [address], 5 12:37:54 Referral sleep medicine referral 2024 025 [email or web address] [facility], [address] [place] [address], [place], [address], 5 10:15:54 Procedures None recorded. Surgeries None recorded. Imaging XR, hip + pelvis, bilateral, 2 view - bilateral 2024 025 [email or web address] [facility], [address] [place] [address], [address], 5 14:24:25 US, echocardio gram, transthora cic, complete, w/ color flow 2024 025 [email or web address] 10 [facility], [address] [place] [address], [address], 5 09:15:24 pharmacolo gic nuclear stress test 2024 025 [facility], [address] [place], [address], 09:38:45 Medication Orders None recorded. Patient TargetsNo targets recorded. Patient Instructions Encounter Date Encounter Id Patient Instructions Last Modified By Organization Details Last Modified Time 02/20/2025 [id number] sleep apnea: car e instructions Not available 02/20/2025 16:46:29 polymyalgia rheumatica: care instructions Not available 02/20/2025 16:46:29 hypothyroidism: care instructions Not available 02/20/2025 16:46:29 03/06/2025 [id number] pulse oximetry* TOYA Not available 03/06/2025 15:19:41 polymyalgia rheumatica: care instructions Not available 03/06/2025 15:14:20 04/10/2025 [id number] hip pain: care instructions Not available 04/10/2025 14:18:51 Reason for Referral Sleep Medicine Referral for Fatigue r/o sleep apnea, home sleep study Referring Physician: Bethany Kinney, Internal Medicine, Encounter Date: 01/14/2025 Results Created Date Observation Date Name Description Value Unit Range Abnormal Flag Note LastModifiedBy Organization Detail LastModifiedTime 03/06/2003/06/2025 pulse oxime try* Result 94 Not Available [facility] [address] [facility] [address], [place], [address], 03/03/2025 15:55:43 01/15/2001/13/2025 US, echoc ardio gram, trans thora cic, compl ete, w/ color flow No observ ation record ed. [email or web address] [facility] (Medical Records) [address] [place], [address], 01/14/2025 16:43:06 02/03/20 25 01/27/2025 MAMMO , scree azalea, digit al, bilat eral No observ ation record ed. [email or web address] [facility] [address] [place], [address], 02/02/2025 09:24:48 02/18/2002/17/2025 vernon can cardi olite stres s test (PROC ) No observ ation record ed. [facility] [address], [place], [address], 02/17/2025 22:27:37 02/19/2002/17/2025 pharm acolo gic nucle ar stres s test No observ ation record ed. [email or web address] [facility] [address], [place], [address], 02/20/2025 16:00:37 Result Notes None recorded. Problems Name Problem SNOMED Code Status Onset Date Resolution Date Notes Provider Name and Address Organization Details Recorded Time Vitamin deficien cy 47286318 Active 2017 Shy lugo [facility] 5 08:19:58 Hypothyr oidism 75361238 Active 2017 Akshat Jacobs, DO [address] [place] [address], [address], [facility] 5 15:04:46 Essentia l hyperten eddy 37423490 Active 2017 Akshat Jacobs, DO [address] [place] [address], [address], [facility] 5 15:04:46 Gastroes ophageal reflux disease 342819265 Active 2017 [facility] 5 08:19:57 Chronic depressi on 165634424 Active 2017 Shy lugo [facility] 5 08:19:57 Deep venous thrombos is 017485846 Active 2017 Shy lugo [facility] 5 08:19:57 Pulmonar y embolism 79213558 Active 2017 [facility] 5 08:19:58 Hypercho lesterol emia 44988669 Active 2018 Akshat Jacobs, DO [address] [place] [address], [address], [facility] 5 15:04:46 Osteoart hritis 789572182 Active 2018 [facility] 5 08:19:57 Neuropat hy 456048137 Active 2018 [facility] 5 08:19:57 Impaired fasting glycemia 848065467 Completed 201806/12/2021 Akshat Jacobs, DO [address] [place] [address], [address], [facility] 2 13:43:14 Crohn's disease 15689624 Active 2018 [facility] 5 08:19:57 Neck pain 18273562 Active 2020 Akshat Jacobs, DO [address] [place] [address], [address], [facility] 1 14:31:26 Type 2 diabetes mellitus 66278087 Active 2021 Akshat Jacobs, DO [address] [place] [address], [address], [facility] 5 15:04:46 Diastoli c dysfunct ion 4324616 Active 2021 [facility] 5 08:19:57 Eczema 59956970 Active 2021 [facility] 5 08:19:57 Seborrhe ic dermatit is of scalp 021803737 Active 2021 [facility] 5 08:20:03 Osteopen ia 233356211 Active 2021 Shy lugo, [facility] 5 08:19:57 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 807615657 Active 2021 Shy lugo, [facility] 5 08:19:57 Low back pain 904061545 Active 2022 Akshat Jacobs, DO [address] [place], [address], [facility] 3 12:08:05 Dysplast ic nevus of skin 015143474 Active 2022 Shy Estrada null, [facility] 5 08:19:57 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 08463297 Active 2022 Shy lugo, [facility] 5 08:19:57 Degenera tive lumbar spinal stenosis 427459176 Active 2022 Shy Estrada null, [facility] 5 08:19:57 Diastoli c heart failure 065204114 Active 2023 Shy lugo, [facility] 5 08:19:57 Pulmonar y embolism with pulmonar y infarcti on 43003482861 02 Active 2023 Shy Estrada [facility] 5 08:19:57 Constipa tion 85793703 Active 2023 Shy lugo, [facility] 5 08:19:57 Muscle pain 35971842 Active 2023 KAEL MACIAS [address] [facility], [place], [address], [facility] 5 15:10:43 Bilatera l shoulder joint pain 26082012067 925556 Active 2023 Shy Estrada null, [facility] 5 08:19:57 Polymyal devin rheumati ca 62733946 Active 2024 KAEL MACIAS [address] [place], [address], [facility] 5 16:35:13 Flatulen ce, eructati on and gas pain 897966509 Active 2024 [facility] 5 12:14:13 Idiopath ic peripher al neuropat hy 98739349 Active 2024 Akshat Jacobs, DO [address] [place] [address], [address], [facility] 5 14:54:09 Bilatera l lower limb edema 892135584 Active 2024 Akshat Jacobs, DO [address] [place] [address], [address], [facility] 5 15:01:23 Dyspnea on exertion 75605397 Active 2024 Akshat Jacobs, DO [address] [place] [address], [address], [facility] 5 14:09:59 Dyspnea 675240354 Active 2024 KAEL MACIAS [address] [place] [address], [address], [facility] 5 15:10:01 Fatigue 47539151 Active 2024 KAEL MACIAS [address] [place] [address], [address], [facility] 5 15:10:16 Primary gout 03830434 Active 2024 KAEL MACIAS [address] [place] [address], [address], [facility] 5 15:14:22 Gouty arthriti s of toe 182835136 Active 2024 KAEL MACIAS [address] [place] [address], [address], [facility] 5 16:36:34 Obstruct dax sleep apnea syndrome 92460892 Active 2024 Akshat JimenezMary Jacobs, DO [address] [place] [address], [address], [facility] 16:36:47 Pain of hip region 61513119 Active 2024 Akshat Jacobs, DO [address] [place] [address], [address], [facility] 5 14:18:05 Problem Notes None recorded. Procedures Surgical History Date Name Laterality Status Provider Name and Address Organization Details Recorded Time 01/28/20 25 Most Recent Mammogram completed Shy Estrada [facility] 02/02/2025 09:24:31 01/05/20 21 Cerumen Removal completed KAEL MACIAS [address] [place] [address], [address], [facility] 01/04/2021 14:35:46 12/28/19 21 Cerumen Removal completed KAEL MACIAS [address] [place] [address], [address], [facility] 12/27/2020 10:40:32 05/11/20 18 total replacement of hip completed Mirian Dumas NP, S [address] [place] [address], [address], [facility] 09/02/2018 16:50:12 02/15/20 17 Colonoscopy completed Norma Pereira [facility] 06/23/2019 08:47:23 Appendectomy completed Norma Pereira [facility] 12/23/2019 16:15:09 Imaging Results None recorded. Procedure Notes None recorded. Medical Equipment None Reported. Allergies Allergen ID Allergen Name Allergen Category Reaction Reaction Severity Criticality Documentation Date Start Date Code Code System Note Provider Name and Address Organization Details Recorded Time 2792 morphine medicatio n Not available Not available Not available 07/24/2018 7052 RxNorm Elke lugo [facility] 9 16:25:22 2798 Non-stero idal anti-infl ammatory agent (substanc e) medicatio n Not available Not available Not available 07/24/2018 40911 5008 SN[facility]ED [facility] 9 16:25:32 2799 nitroglyc shakira medicatio n Not available Not available Not available 07/24/2018 4917 RxNorm Elke Shea [facility] 9 16:25:44 2800 ibuprofen medicatio n Not available Not available Not available 07/24/2018 5640 RxNorm Elke Shea [facility] 9 16:25:58 2801 flurandre nolide medicatio n Not available Not available Not available 07/24/2018 4500 RxNorm Elke Shea [facility] 9 16:32:06 9131 spironola ctone medicatio n Not available Not available Not available 12/08/2024 9997 RxNorm Brie Nayana [facility] 5 16:19:52 Medications Name Sig Start Date Stop Date Status Note LastModified by Organization Details LastModified Time amoxicillin 500 mg capsule TAKE 1 CAPSULE BY MOUTH EVERY 8 HOURS FOR 10 DAYS 04/23 completed Not Available Not Available Not Available prednisone 10 mg tablet TAKE 4 TABLETS EVERY DAY BY ORAL ROUTE FOR 30 DAYS. 04/10 completed Not Available Not Available Not Available ketoconazol e 2 % shampoo 09/12 [...] Not Available Not Available No t Available sertraline 100 mg tablet take 1 tablet by mouth once daily active Not Available Not Available No t Available prednisone 5 mg tablet TAKE 1 TABLET BY MOUTH EVERY DAY FOR 30 DAYS 04/10 completed Not Available Not Available Not Available omeprazole 40 mg capsule,del ayed release [...] Not Available spironolact one 25 mg tablet TAKE 1 TABLET BY MOUTH EVERY DAY active Not Available Not Available No t Available levothyroxi ne 25 mcg tablet take [...] Not Available Not Available Not Available prednisone 1 mg tablet TAKE 5 TABLETS EVERY DAY BY ORAL ROUTE FOR 30 DAYS. 04/10 completed Not Available Not Available Not Available [...] CAPSULE BY MOUTH THREE TIMES A DAY 2024 active Not Available Not Available Not Avai lable warfarin 1 mg tablet TAKE 2 TABLETS [...] completed Not Available Not Available Not Available duloxetine 30 mg capsule,del ayed release TAKE 1 CAPSULE BY MOUTH EVERY DAY active Not Available Not Available No t Available chlorhexidi ne gluconate 0.12 % mouthwash [...] in Arterial blood by Pulse oximetry Systolic And Diastolic Provider Name and Address Organization Details Last Updated DateTime 5 154.31 cm 41.1 kg/m2 84587.9 5 g 74 /min 98 % 98 % 130/80 mm[Hg] [facility] 5 14:00:07 Date Recorded Body height Heart rate Oxygen saturation Oxygen saturation in Arterial blood by Pulse oximetry Systolic And Diastolic Provider Name and Address Organization Details Last Updated DateTime 5 154.31 cm 74 /min 94 % 94 % 136/86 mm[Hg] Shy Estrada [facility] 5 14:53:05 Date Recorded Body height Oxygen saturation Oxygen saturation in Arterial blood by Pulse oximetry Heart rate Systolic And Diastolic Provider Name and Address Organization Details Last Updated DateTime 5 154.31 cm 97 % 97 % 70 /min 128/72 mm[Hg] Brie Nayana [facility] 5 16:24:08 Date Recorded Body height Body mass index (BMI) Body weight Oxygen saturation Oxygen saturation in Arterial blood by Pulse oximetry Heart rate Systolic And Diastolic Provider Name and Address Organization Details Last Updated DateTime 5 154.31 cm 41.7 kg/m2 20297.7 3 g 94 % 94 % 75 /min 126/70 mm[Hg] Brie Kraus [facility] 5 14:56:04 Date Recorded Oxygen saturation Oxygen saturation in Arterial blood by Pulse oximetry Heart rate Systolic And Diastolic Provider Name and Address Organization Details Last Updated DateTime 04/10/2025 94 % 94 % 80 /min 110/76 mm[Hg] [facility] 5 14:01:16 Social History Question Answer Notes LastModified by Organizat ion Details LastModified Time Tobacco Smoking Status Never [facility]oker [facility] 09/02/2018 16:01:44 What Was The Date Of Your Most Recent Tobacco Screening? 04/10/2025 [email or web address] Information not available 04/10/2025 Sex: Unknown Functional Status Question Answer Note LastModified by Organization D etails LastModified Time Do you or have you ever used any other forms of tobacco or nicotine? No Information not available 11/11/2021 Mental Status None recorded. Family History Nothing Reported. Medical History No medical history recorded. Gynecological History Statement/Question Response Most Recent Mammogram 01/27/2025 Obstetrics History GPAL:G 0 P 0 0 0 0 Immunizations Vaccine Type Date Status Note Provider Nam e and Address Organization Details Recorded Time COVID-19, mRNA, LNP-S, PF, 30 mcg/0.3 mL dose 08/26/2020 completed Norma lugo [facility] 11/11/2021 09:36:12 COVID-19, mRNA, LNP-S, PF, 30 mcg/0.3 mL dose 09/16/2020 completed Norma lugo [facility] 11/11/2021 09:36:16 Past Encounters Encounter ID Performer Location Encounter Start Date Encounter Closed Date Diagnosis/Indication Diagnosis SNOMED-CT Code Diagnosis ICD10 Code Diagnosis IMO Codes Diagnosis Note [id number] Akshat Jacobs [facility] [address] [facility],[place] [address] 07/26/2018 14:17:27 07/26/2018 14:53:38 Osteoarthritis 859090045 M19.90 Hypothyroidism 25335324 E03.9 Essential hypertension 03279306 I10 Hypercholesterolemia 136 13696 E78.00 Deep venou s thrombosis 111170411 I82.409 on coumadin Pale complexion 83302983 0 R23.1 Snoring 14622921 R06.83 Total repl acement of hip 43412891 Z96.649 continue PT Gastroesop hageal reflux disease 958089285 K21.9 If skips med X 1 day, gets burning [id number] Akshta Jacobs [facility] [address] [facility],[place] [address] 09/02/2018 15:56:18 09/02/2018 16:21:46 Chronic depression 546039998 F34.1 stable Crohn's disease 49701800 K50.90 no changes Osteoarthritis 387146788 M19.90 s/p Left hip replacemen t Hypothyroidism 98369519 E03.9 follow in 4 weeks Essential hypertension 85597952 I10 well controlled [id number] Akshat Jacobs [facility] [address] [facility],[place] [address] 12/09/2018 15:24:39 12/09/2018 16:08:40 Impaired fasting glycemia 158303938 R73.01 has been borderline so will need to get a new a1c Osteoarthritis 665721319 M19.90 in knees, has bone on bone and is not doing well at all Hypothyroidism 87849409 E03.9 we need to increase the dose of her thy med Essential hypertension 19204037 I10 has been stable Dyspnea on exertion 6084 5006 R06.09 echo are needed note she just had a hip replaced in jun Akshat Jacobs DO [facility] [address] [facility],[place] [address] 02/19/2019 14:32:38 02/19/2019 15:52:31 Essential hypertension 55829712 I10 has been stable but given diastolic dysfunctio n will taper off metoprolol and start diltiazem Hypothyroidism 00505311 E03.9 we need to increase the dose of her thy med Diastolic dysfunction 35 83914 I50.30 as above will try diltiazem [id number] Akshat Jacobs DO [facility] [address] [facility],[place] [address] 03/26/2019 14:56:46 03/26/2019 16:00:10 Essential hypertension 85855689 I10 is no better on diltiazem except she has noted increase in bp she will restart her metoprolol Hypothyroidism 21938472 E03.9 will chk the tsh Cough 04628525 R05 will start amoxicilli n 500 tid will give her forms for xray of her sinuses and chest [id number] Akshat Jacobs DO [facility] [address] [facility],[place] [place] [address] 05/30/2019 11:45:37 05/30/2019 12:17:45 Essential hypertension 96681021 I10 is no better and bp is now 200 systolic will increase the metop to 100 Gastroesop hageal reflux disease 825544055 K21.9 [id number] Akshat Jacobs DO [facility] [address] [facility],[address] [employer] [place] [address] 06/13/2019 11:23:06 06/13/2019 11:58:44 Impaired fasting glycemia 731991667 R73.01 has been borderline so will need to get a new a1c Essential hypertension 28255731 I10 is no better and bp is now 200 systolic will increase the metop to 100 BP is still poorly controlled on increased metop Will add jaydon 25 mg and f/u next week Hypothyroidism 23992443 E03.9 will chk the tsh [id number] Akshat Jacobs [facility] [address] [facility] [address] [address] 06/23/2019 13:36:00 06/23/2019 14:11:26 Essential hypertension 69772341 I10 BP is much better controlled and no edema Upper resp iratory infection 99701361 J06.9 Likely viral, ongoing cough and congestion , lungs clear Will let us know if symptoms worsen or gets fever Hypothyroidism 46844042 E03.9 Awaiting labs [id number] Akshat Jacobs [facility] [address] [facility] [address] [address] 08/12/2019 14:14:51 08/12/2019 15:12:05 Essential hypertension 75738764 I10 BP is still up and down and not very well controlled on 100 of metoprolol and 50 of spironolac tone plan is to stop the spironolac tone and start the lisinopril 10mg Vitamin deficiency 45783 002 E56.9 cont supp Impaired f asting glycemia 278634047 R73.01 has been borderline so will need to get a new a1c in near future [id number] Akshat Jacobs [facility] [address] [facility] [address] [address] 09/10/2019 13:33:28 09/10/2019 15:55:03 Hypothyroidism 08930195 E03.9 last lab work was excellent Impaired f asting glycemia 803770808 R73.01 has been borderline so will need to get a new a1c in near future Pulmonary embolism 13941 003 I26.99 INR is stable Crohn's disease 70836100 K50.90 unknown status as she has not followed up with GI recently Right flank pain 2119862 09 R10.9 given persistanc e of her pain and [place] [id number] Akshat Jacobs [facility] [address] [facility] [address] [address] 03/29/2020 09:52:56 03/29/2020 16:15:17 Upper respiratory infection 68666501 J06.9 will treat with Z-mark and see if improvemen t Gastroesop hageal reflux disease 538381447 K21.9 patient has hx of GERD may be combinatio n of URI and GERD symptoms at the same time, will treat with double omeprazole dose for 4 days while on Z mark and see if improvemen t in symptoms will call back if she worsens [id number] Akshat Jacobs [facility] [address] [facility],[address] [address] 04/23/2020 15:19:43 04/23/2020 16:07:41 Gastroesophageal reflux disease 351723082 K21.9 has been on 2 omeprazole s [...] this is causing worsening symptoms Essential hypertension 84372347 I10 BP are now well controlled on 100 of metoprolol and 50 of spironolac tone Basal cell carcinoma of skin 968375521 C44.91 [id number] Akshat Jacobs [facility] [address] [facility],[address] [place] [address] 06/21/2020 08:43:29 06/21/2020 15:32:51 Essential hypertension 68431090 I10 BP are now well controlled on 100 of metoprolol and 50 of spironolac tone Neck pain 47574514 M54.2 possible gGI consult not until next [place] to [place] radha [id number] Akshat Jacobs [facility] [address] [facility], [place] [address] 06/22/2020 14:48:44 06/22/2020 15:03:02 Sialoadenitis 59009943 K11.20 [id number] Akshat Jacobs [facility] [address] [facility] [address] [address] [employer] [facility] [place] [address] 12/27/2020 10:16:40 12/27/2020 11:42:35 Acute pharyngitis 988299433 J02.9 rapid failed Acute otitis media 77645 03 H65.01 will start on abx and fu back up in a week for lavage after using debrox Impacted c erumen in right ear [id number] 578536 H61.21 will fu in a week [id number] Akshat Jacobs [facility] [address] [facility],[place] [address] 01/04/2021 14:16:12 01/04/2021 14:48:31 Impacted cerumen in right ear [id number] 141915 H61.21 fu with ENT, RADHA referral [id number] Akshat Jacobs [facility] [address] [facility],[place] [address] [place] [facility] [place] [address] 05/04/2021 10:43:44 05/09/2021 09:10:52 Lymphadenopathy 34494537 R59.0 will start on medrol dose mark and msk relaxer for combinatio n TMJ and enlarged LNwill also fu with Temporoman dibular saogd-ntxu-qpmrabzkqv n syndrome 556436642 M26.622 will fu with bebo graf as well for her jaw [id number] [facility] [address] [facility],[place] [address] 06/06/2021 08:24:07 06/06/2021 14:00:55 Essential hypertension 17931533 I10 BP are now well controlled on 100 of metoprolol and 50 of spironolac tone Impaired f asting glycemia 814889811 R73.01 has been borderline so will need to get a new a1c in near future Hypothyroidism 74059251 E03.9 last lab work was excellent Crohn's disease 08207120 K50.90 unknown status as she has not followed up with GI recently Diastolic dysfunction 35 07079 I50.30 as above will try diltiazem Pulmonary embolism 59259 003 I26.99 INR is stable Deep venou s thrombosis 281861648 I82.409 stable and is without issue at this time [id number] Akshat Jacobs [facility] [address] [facility] [address],[place] [address] 07/06/2021 14:45:59 07/06/2021 16:22:19 COVID-19 082618389 U07.1 ongoing fatiguelon g term symptomgiv en tips to manage it [id number] Akshat Jacobs [facility] [address] [facility] [address],[place] [address] 11/11/2021 16:14:21 11/11/2021 16:49:49 Type 2 diabetes mellitus 85906339 E11.9 a1c is 6.4 doing well Hypothyroidism 44127394 E03.9 tsh > 6 Essential hypertension 90723349 I10 BP are now well controlled on 100 of metoprolol and 50 of spironolac tone Osteopenia 542426896 M85 .80 being followed Active or passive immunization 009595676 Z23 patient advised of due vaccines (tdap, pneu 13 & 23, shingles) Crohn's disease 08224305 K50.90 unknown status as she has not followed up with GI recently Diastolic dysfunction 35 92418 I50.30 as above will cont diltiazem Pulmonary embolism 33729 003 I26.99 INR is stable Deep venou s thrombosis 761074605 I82.409 stable and is without issue at this time Eczema 70252126 L30.9 stable Seborrheic dermatitis of scalp 393571985 L21.0 [id number] Akshat Jacobs [facility] [address],[place] [address] 01/24/2022 14:09:38 01/24/2022 15:11:39 Active or passive immunization 063181296 Z23 patient advised of due vaccines (tdap, pneu 13 & 23, shingles) Adult heal th examination 832950634 Z00.01 has to lose weight she know [...] reviewed all her lab Screening for osteoporosis 578573680 Z13.820 Hepatitis C screening 41 9291118 Z11.59 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 [id number] Akshat Jacobs, [facility] [address] [facility],[address] [address] 02/24/2022 15:30:39 02/24/2022 16:17:39 Type 2 diabetes mellitus 95959773 E11.9 a1c is 6.4 doing well but neuropathy has been a problem for her feethaving a burning pain she will try the gabapentin at night Essential hypertension 72070091 I10 BP are now well controlled on 100 of metoprolol and 50 of spironolac tone Hypothyroidism 06398680 E03.9 tsh > 6 [id number] Akshat Jacobs, [facility] [address] [facility],[place] [address] 08/04/2022 11:09:49 08/04/2022 15:58:54 Type 2 diabetes mellitus 63663291 E11.9 a1c is 6.4 doing well but neuropathy has been a problem for her feethaving a burning pain she will try the gabapentin at night Essential hypertension 08902547 I10 BP are now well controlled on 100 of metoprolol and 50 of spironolac tone Hypothyroidism 09476322 E03.9 tsh > 6 Low back pain 146546831 M54.50 she will need to get a xray done first i anticipate this to be significan t and this may lead to mri etc Crohn's disease 84994458 K50.90 unknown status as she has not followed up with GI recently Diastolic dysfunction 35 63442 I50.30 as above will cont diltiazem Pulmonary embolism 52560 003 I26.99 INR is stable Deep venou s thrombosis 282941814 I82.409 stable and is without issue at this time Dysplastic nevus of skin 492495293 D22.9 [id number] [facility] [address] [facility],[place] [address] 02/20/2023 14:53:25 02/20/2023 16:15:33 Crohn's disease 29488333 K50.90 unknown status as she has not followed up with GI recently Essential hypertension 51820671 I10 BP are now well controlled on 100 of metoprolol and 50 of spironolac tonereview ed lab in detail and doing great Hypercholesterolemia 136 83887 E78.00 discussed results and doing well Hypothyroidism 68130107 E03.9 tsh > 6 Type 2 cj betes mellitus 09320583 E11.9 a1c is now 6.2 and prior 6.4 doing well but neuropathy has been a problem for her feethaving a burning pain she will try the gabapentin at night [id number] Akshat Jacobs [facility] [address] [facility], [address] [place] [address] 08/07/2023 13:23:14 08/07/2023 14:48:50 Diastolic heart failure 625307196 I50.30 stable and without issue Essential hypertension 89360255 I10 BP are now well controlled on 100 of metoprolol and 50 of spironolac tonereview ed lab in detail and doing great Hypothyroidism 07463861 E03.9 tsh > 6 Type 2 cj betes mellitus 19836324 E11.9 a1c is now 6.2 and prior 6.4 doing well but neuropathy has been a problem for her feethaving a burning pain she will try the gabapentin at night Crohn's disease 97149740 K50.90 unknown status as she has not followed up with GI recently Multiple a ctinic keratoses 091616282 L57.0 Pulmonary embolism with pulmonary infarction 8101444608 102 I26.99 [id number] Akshat Jacobs [facility] [address] [facility], [place] [address] 11/19/2023 13:48:09 11/20/2023 09:13:57 Adult health examination 350566575 Z00.00 she is doing great after surgery [...] to have derm send info to me firstjamil m and its attachment s are being looked at by various dr s reviewed all her lab Screening for cardiovascular system disease 121333785 Z13.6 Screening for malignant neoplasm of colon 593832597 Z12.11 Screening for osteoporosis 008689841 Z13.820 Screening mammography 24 612099 Z12.31 had done 9 months ago Depression screening 171 142848 Z13.31 SCREENING NEGATIVE Degenerati ve lumbar spinal stenosis 295491540 M48.061 post op now and slowly getting better [id number] Akshat Jacobs [facility] [address] [facility],[place] [address] 05/05/2024 15:57:41 05/05/2024 16:34:34 Diastolic heart failure 552300578 I50.30 stable and without issue Hypothyroidism 36689372 E03.9 tsh > 6 Muscle pain 82703468 M79 .10 Bilateral shoulder joint pain 1748869105 8086843 M25.511 M25.512 [id number] Akshat Jacobs [facility] [address] [facility], [place] [address] 08/06/2024 13:41:50 08/06/2024 15:07:29 Essential hypertension 80001605 I10 BP are now well controlled on 100 of metoprolol and 50 of spironolac [facility] ed lab in detail and doing great Hypothyroidism 17626756 E03.9 tsh > 6 Type 2 cj betes mellitus 80868603 E11.9 a1c is now 6.2 and prior 6.4 doing well but neuropathy has been a problem for her feethaving a burning pain she will try the gabapentin at night Crohn's disease 93116768 K50.90 unknown status as she has not followed up with GI recently Polymyalgi a rheumatica 39900340 M35.3 [id number] Akshat Jacobs [facility] [address] [facility], [place] [address] 08/22/2024 14:54:02 08/22/2024 16:10:38 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 cont kevan Flatulence , eructation and gas pain 398440955 R14.1 hold the omeprazole and call us on wed Polymyalgi a rheumatica 75391698 M35.3 will decrease to 30 and call in 10 days Essential hypertension 35985879 I10 BP are now well controlled on 100 of metoprolol and 50 of spironolac tonereview ed lab in detail and doing great Gastroesop hageal reflux disease 442820949 K21.9 having a lot of gas will [...] i feel this is causing worsening symptoms [id number] Akshat Jacobs, [facility] [address] [facility],[place] [address] 09/12/2024 11:06:59 09/12/2024 11:47:39 Depression screening 493417011 Z13.31 SCREENING NEGATIVE Polymyalgi a rheumatica 51805225 M35.3 will decrease to 30 and call in 10 dayswe are cont to slowly cut down will go to 25mg and then 20 after a few weeks if ok Screening for malignant neoplasm of colon 357014786 Z12.11 ordered cologuard Dysplastic nevus of skin 892487525 D22.9 [id number] Akshat Jacobs, [facility] [address] [facility],[place] [address] 11/21/2024 14:19:56 11/21/2024 15:10:19 Hypothyroidism 34910723 E03.9 tsh > 6 Essential hypertension 05123487 I10 BP are now well controlled on 100 of metoprolol and 50 of spironolac tonereview ed lab in detail and doing great Screening for cardiovascular system disease 804667109 Z13.6 Screening for malignant neoplasm of colon 977903306 Z12.11 ordered cologuard Screening for osteoporosis 099438042 Z13.820 Screening mammography 24 413621 Z12.31 had done 9 months ago Type 2 cj betes mellitus 16230179 E11.9 a1c is now 6.2 and prior 6.4 doing well but neuropathy has been a problem for her feethaving a burning pain she will try the gabapentin at night Idiopathic peripheral neuropathy 23662925 G60.9 08695 stop gabapentin will start the duloxet General ex amination of patient 652785293 Z00.01 24259167 struggling with the PMR and pred side effects went too quick to deccrease predalso neuropathy is a big problem at current taking kevan PRIOR:has to lose weight she know this [...] are being looked at by various dr s reviewed all her lab Polymyalgi a rheumatica 18216494 M35.3 will decrease to 30 and call in 10 dayswe are cont to slowly cut down will go to 25mg and then 20 after a few weeks if ok Bilateral lower limb edema 428246642 R60.0 091421 [id number] Akshat Jacobs [facility] [address] [facility],[place] [address] 12/08/2024 13:55:23 12/08/2024 14:52:12 Essential hypertension 18020603 I10 BP are now well controlled on 100 of metoprolol and 50 of spironolac [facility] ed lab in detail and doing great Type 2 cj betes mellitus 34555033 E11.9 a1c is pending was 6.2 and prior 6.4 doing well but neuropathy has been a problem for her feethaving a burning pain she will try the gabapentin at night Depression screening 171 178587 Z13.31 SCREENING NEGATIVE Dyspnea on exertion 6084 5006 R06.09 928851 echo are needed note she just had a hip replaced in [id number] Akshat Jacobs [facility] [address] [facility],[place] [address] 01/14/2025 14:46:30 01/14/2025 15:22:25 Dyspnea 642969456 R06.02 13522 negative echo Fatigue 42064991 R53.83 0747577 will set up with home sleep study Muscle pain 77798769 M79 .18 448600 fu with recheck bw Primary gout 81138478 M1 0.072 10926861 40 mg x 7 days, the taperproba ble gout [id number] Akshat Jacobs [facility] [address] [facility],[place] [address] 02/20/2025 16:14:29 02/23/2025 09:00:17 Depression screening 143030967 Z13.31 SCREENING NEGATIVE Essential hypertension 95217841 I10 BP are now well controlled on 100 of metoprolol and 50 of spironolac tonereview ed lab in detail and doing great Type 2 cj betes mellitus 91237026 E11.9 a1c is pending was 6.2 and prior 6.4 doing well but neuropathy has been a problem for her feethaving a burning pain she will try the gabapentin at night Hypothyroidism 99745664 E03.9 tsh > 6 Polymyalgi a rheumatica 10032131 M35.3 19870209 we must wean her down will go to 15mg for a week and then to 10mg for a week ten we will see her will decrease to 30 and call in 10 dayswe are cont to slowly cut down will go to 25mg and then 20 after a few weeks if ok Obstructiv e sleep apnea syndrome 25293832 G47.33 079161 [id number] Akshat Jacobs [facility] [address] [facility] [place] [address] 03/06/2025 14:50:02 03/09/2025 08:14:24 Depression screening 344786757 Z13.31 SCREENING NEGATIVE Essential hypertension 44685705 I10 BP are now well controlled on 100 of metoprolol and 50 of spironolac tonereview ed lab in detail and doing great Type 2 cj betes mellitus 69925829 E11.9 a1c is pending was 6.2 and prior 6.4 doing well but neuropathy has been a problem for her feethaving a burning pain she will try the gabapentin at night Hypothyroidism 32802326 E03.9 tsh > 6 Obstructiv e sleep apnea syndrome 89909102 G47.33 331285 stable Polymyalgi a rheumatica 52835254 M35.3 819814 will go to 8 mg and we will see how she does we must wean her down will go to 15mg for a week and then to 10mg for a week ten we will see her will decrease to 30 and call in 10 dayswe are cont to slowly cut down will go to 25mg and then 20 after a few weeks if ok [id number] DO Genie Pope Internal [facility] [address],[place] [address] 04/10/2025 13:50:58 04/10/2025 14:24:25 Depression screening 604695652 Z13.31 SCREENING NEGATIVE Essential hypertension 39304399 I10 BP are now well controlled on 100 of metoprolol and 50 of spironolac tonereview ed lab in detail and doing great Type 2 cj betes mellitus 79698230 E11.9 a1c is 6.8microal b is neg was 6.2 and prior 6.4 doing well but neuropathy has been a problem for her feethaving a burning pain she will try the gabapentin at night Pain of hip region 95430 002 M25.551 M25.552 798713 Health Concerns Section Related Observation LastModified by Organization Detai ls LastModified Time None Recorded Concern Status LastModified by Organization Details LastModified Time None Recorded Advance Directives Directive None Recorded Payers Insurance Date Sequence Insurance Name Policy Number Policy Mcintyre Covered Member ID Mcintyre Member ID Guarantor Name 04/07/2025 1 [facility] - DOS ON OR AFTER 2022 - MEDICARE ADVANTAGE [place] (MEDICARE REPLACEMENT/AD VANTAGE - PPO) Janna Troy [id number] Janna Hanna [facility] 08/23/2018 1 *SELF PAY* Vinay Hanna [facility] 07/30/2018 SLIDING FEE SCHEDULE - DISCOUNT Janna Hanna [facility] 11/19/2023 1 [facility] - DOS PRIOR TO 2022 - DUAL ELIGIBLE (MEDICARE REPLACEMENT/AD VANTAGE - HMO) Janna Troy [id number] [facility] Notes Date Note Type Note Provider Name and Address Organization Details Recorded Time 12/09/19 25 text/htm l Care Management - HypertensionReported by PatientHPIFor severity, patient reportssymptoms are worseningandinterferes with daily activities. For associated symptoms, patient reportsshortness of breath,edema, andfatiguebut reportsno dizziness,no lightheadedness,no chest pain,no palpitations,no calf muscle cramps,no blurred vision,no confusion, andno headaches. For self care, patient reportsnot under emotional stress. Care Management - DiabetesReported by PatientHPIFor self care, patient reportsseeing eye doctor yearly for dilated eye exam,checking feet regularly,normal range of home blood sugars (in the low 100s), andno side effects from medications. For associated symptoms, patient reportssymptoms are usually well controlled,no fatigue,no dizziness,no excessive sweating,no headaches,no confusion,no increased thirst,no increased appetite,no increased urination,no blurred vision,no numbness of feet, andno calluses on feet.ROS as noted in the HPI here for rechk still gets very dyspneic with any exertionrelates that she didnt tolerate the spironolactone pred down to 7mg here for rechk and is relating that she has gained wgt here for rechk and doing ok overallunfortunately has gained wgtback is more sore than usual Akshat Jacobs, [address] [place], [address], [facility] 12/08/2024 14:13:10 01/15/20 25 text/htm l ROS as noted in the HPI c/o spider bite the patient reports that she thinks she has PMR againthe patient is having pain in the thighs and arms againthe patient needs updated CRP and ESR recheck gout? left big toewarm, red and painful to the touchthought it was a spider bite but wasn't around any bugsrecommended for both to restart the prednisone, has enough at home to restart at 40 mg for 7 days then taper having her fu with uric acid level and checking for possible parathyroid, calcium issues for the joint pain will fu with results echo was normalstill tired, sob, recommended sleep study, states her grandkids tell her she snores a lot KAEL MACIAS [address] [facility], [place], [address], [facility] 01/14/2025 15:22:34 02/21/20 25 text/htm l Care Management - DiabetesReported by PatientRIVERT[facility]OSPITALor self care, patient reportsseeing eye doctor yearly for dilated eye exam,checking feet regularly,normal range of home blood sugars (in the low 100s), andno side effects from medications. For associated symptoms, patient reportssymptoms are usually well controlled,no fatigue,no dizziness,no excessive sweating,no headaches,no confusion,no increased thirst,no increased appetite,no increased urination,no blurred vision,no numbness of feet, andno calluses on feet. Care Management - HypertensionReported by PatientIFor self care, patient reportsnot under emotional stress. For severity, patient reportssymptoms are improvinganddoes not interfere with daily activities. For associated symptoms, patient reportsno dizziness,no lightheadedness,no chest pain,no shortness of breath,no palpitations,no edema,no calf muscle cramps,no blurred vision,no confusion,no headaches, andno fatigue.ROS as noted in the HPI prednisone is causing havioc with her body losing hair and gained wgtrelates that she has been taking 20mg prednisioneand feels awfulmuslce and joints are no longer painful Akshat Jacobs, DO [address] [facility], [place], [address], [facility] 02/20/2025 16:47:16 03/06/20 text/htm l Care Management - DiabetesReported by [facility] self care, patient reportsseeing eye doctor yearly for dilated eye exam,checking feet regularly,normal range of home blood sugars (in the low 100s), andno side effects from medications. For associated symptoms, patient reportssymptoms are usually well controlled,no fatigue,no dizziness,no excessive sweating,no headaches,no confusion,no increased thirst,no increased appetite,no increased urination,no blurred vision,no numbness of feet, andno calluses on feet. Care Management - HypertensionReported by PatientRIVERTON HOSPITALor self care, patient reportsnot under emotional stress. For severity, patient reportssymptoms are improvinganddoes not interfere with daily activities. For associated symptoms, patient reportsno dizziness,no lightheadedness,no chest pain,no shortness of breath,no palpitations,no edema,no calf muscle cramps,no blurred vision,no confusion,no headaches, andno fatigue. Obstructive Sleep Apnea F/UReported by PatientHPIFor quality, patient reportsno loud snoring,no gasping for air,no witnessed apnea,no hyponasal speech, andno frequent breathing through the mouth. For onset/timing, patient reportsresolved. For duration, patient reportsresolved. For severity, patient reportsdoes not limit daily activities,no frequent sore throats resulting in excess missed days from school / work per year,no difficulty getting going in the morning, andno awakening in the middle of the night with sore throat. For location, patient reportsno enlarged tonsils,no nasal passage blockage,no throat pain,no feeling of tightness in throat,no dryness of mouth, andno chest congestion. For context, patient reportsno lack of adequate sleep,no shift work,not currently taking medication to help sleep,no recent weight gain,no recent upper respiratory infection,no recent sick contacts,not worse with environmental exposure,not worse with seasonal allergen exposure,no hypertension, andnormal sleep hours. For aggravating factors, patient reportsnot worse during an upper respiratory infection (a cold)andnot worse when allergies are active. For associated symptoms, patient reportsno morning headache,no awakening at night short of breath,no sweating heavily at night,no excessive sleepiness during the day,no suddenly falling asleep during the day,no napping,no impaired work performace, andno nasal congestion. Care Management - Acquired HypothyroidismReported by PatientCare ManagementFor medication education, patient reportsunderstands administration,understands effect of concurrent medications,understands missed doses, andunderstands consequences of noncompliance.Interim HistoryFor associated symptoms, patient reportsno abnormal weight gain,no tiredness,no dry skin,no cold intolerance,no constipation,no diarrhea, andno goiter. Care Management - HyperlipidemiaReported by PatientHPIFor control, patient reportsusually well controlled,improving, andat goal. For complications, patient reportsno coronary artery disease,no heart attack,no cardiovascular disease,no pancreatitis, andno stroke.ROS as noted in the HPI here curtis staton is now on 10mg and is about the same just very fatigued still waiting for cpap prednisone is causing havioc with her body losing hair and gained wgtrelates that she has been taking 20mg prednisioneand feels awfulmuscle and joints are no longer painful Akshat Jacobs DO [address] [place], [address], [facility] 03/06/2025 15:18:04 04/10/20 25 text/htm l Care Management - HypertensionReported by Patient Care Management - DiabetesReported by PatientROS as noted in the HPI now OFF the predof course all her other issues have worsened Akshat Jacobs DO [address] [place], [address], [facility] 04/10/2025 14:21:25 OBGyn Episode No OBEpisode recorded.
--- OUTSIDE RECORDS SUMMARY | 2025-04-22 16:09 | XMS_ITS | Encounter Summary ---
Author Organization [facility] Address [address] [place] [address] Phone Care Team Providers Care Mechanical Engineering Director Name Role Phone Akshat Jacobs DO Primary Care Provider [phone] Reason for Referral * MRI/CAT Scan - Closed Specialty Diagnoses / Procedures Referred By Bethany reed Referred To Contact Radiology Diagnoses Intervertebral disc disorder with myelopathy, lumbar region Procedures MRI Lumbar Spine CHG MRI, LUMBAR SPINE Akshat Jacobs DO Phone: tel: fax: [email or web address] Referral ID Status Reason Start Date Expiration Date Visits Re quested Visits Authorized [id number] Closed 08/21/2022 12/21/2022 1 1 Encounter Details Date Type Department Care Team (Late st Contact Info) Description 08/28/2022 Transcribe Orders Virtual Department 30 [place] [address] Akshat Jacobs DO [address] [place] [address] [place] [address] [email or web address] Intervertebral disc disorder with myelopathy, lumbar region [...] documented as of this encounter Care Teams Mechanical Engineering Director Relationship Specialty Start Date End Date Akshat Jacobs DO [email or web address] PCP - General 03/27/17 documented as of this encounter Additional Source Comments The information contained in this document represents components of the legal health record. It is not the complete legal health record.[facility]
--- OUTSIDE RECORDS SUMMARY | 2025-04-22 16:09 | XMS_ITS | Encounter Summary ---
Author Organization [facility] Address [address] [facility] [address] [place] [address] Phone Care Team Providers Care Revit Drafter Name Role Phone Akshat Jacobs DO Primary Care Provider [phone] Encounter Details Date Type Department Care Team ([facility] st Contact Info) Description 04/20/2021 Transcribe Orders Virtual Department 30 [place] [address] Akshat Jacobs DO [address] [facility] [place] [address] [place] [address] [email or web address] Breast screening (Primary Dx) Social History Tobacco [...] Right, Breast Bilateral Bila teral Mammography 05/18/2021 2:0 6 PM EST Impressions 05/18/2021 2:07 PM EST [...] documented as of this encounter Care Teams Revit Drafter Relationship Specialty Start Date End Date Akshat Jacobs DO PCP - General 03/27/17 documented as of this encounter Additional Source Comments The information contained in this document represents components of the legal health record. It is not the complete legal health record.[facility]
--- OUTSIDE RECORDS SUMMARY | 2025-04-22 16:09 | XMS_ITS | Encounter Summary ---
Author Organization [facility] Address [address] [facility] [address] [place] [address] Phone Care Team Providers Care Christmas Tree Farm Manager Name Role Phone Akshat Jacobs DO Primary Care Provider [phone] Encounter Details Date Type Department Care Team (Late st Contact Info) Description 08/28/2022 Procedure Pass [address] [address] Social History Tobacco Use Types Packs/Day Years [...] documented as of this encounter Care Teams Christmas Tree Farm Manager Relationship Specialty Start Date End Date Akshat Jacobs DO [email or web address] PCP - General 03/27/17 documented as of this encounter Additional Source Comments The information contained in this document represents components of the legal health record. It is not the complete legal health record.[facility]
--- OUTSIDE RECORDS SUMMARY | 2025-04-22 16:09 | XMS_ITS | Encounter Summary ---
Author Organization [facility] Address [address] [place] [address] Phone Care Team Providers Care Extension Service Supervisor Name Role Phone Akshat Jacobs Primary Care Provider [phone] Encounter Details Date Type Department Care Team (Late st Contact Info) Description 11/01/2020 Procedure Pass , Ct Scan - [address] [address] Social History Tobacco Use Types Packs/Day Years [...] 4:05 PM EDT Ghassan Orellana RN * Johnson Suicide Severity Rating Scale (Screener/Recent Self-Report) Question [...] documented as of this encounter Care Teams Extension Service Supervisor Relationship Specialty Start Date End Date Akshat Jacobs DO [email or web address] PCP - General 03/27/17 documented as of this encounter Additional Source Comments The information contained in this document represents components of the legal health record. It is not the complete legal health record.[facility]
--- OUTSIDE RECORDS SUMMARY | 2025-04-22 16:09 | XMS_ITS | Clinical Summary ---
Author Organization [facility] Address [address] [place] [address] Phone Care Team Providers Care Linseed Oil Press Tender Name Role Phone NicolekylieAkshat DO Primary Care Provider [phone] Allergies Active Allergy Reactions Criticality Noted Date [...] infarction [I26.99] 04/01/2017 08/23/2023 Chronic anticoagulation 04/01/201708/09 Encounters Date Type Department Care Team Description 04/08/2025 10:40 AM EDT - 04/08/2025 11:59 PM EDT Hospital Encounter [facility] [address] [address] Akshat Jacobs DO Discharge Disposition: Home or Self Care 04/08/2025 Transcribe Orders [facility] [address] [address] Akshat Jacobs DO History of gestational diabetes (Primary Dx); Hypertension, essential; Type 2 diabetes mellitus without complications, unspecified whether snf insulin use from Last 3 Months Family History Medical History Relation Comments Breast [...] Orientation Straight 11/01/2020 4: 07 PM EDT Last Filed Vital Signs Vital [...] Last Done Comments Adult Td,Tdap Booster 1949 BLOOD PRESSURE 1949 DEPRESSION SCREENING 1961 HEPATITIS C SCREENING 1967 PNEUMOCOCCAL VACCINES (50+ years) (1 of 2 - PCV) 1968 COLOGUARD 1994 COLONOSCOPY 1994 COLORECTAL CANCER SCREENING 1994 FIT TEST 1994 FOBT 1994 SIGMOIDOSCOPY 1994 VIRTUAL COLONOSCOPY 1994 ZOSTER VACCINES (1 of 2) 1999 LIPID PANEL 09/07/2022 09/07/2021, 10/26/2010 RSV VACCINE (1 - 1-dose 75+ series) 2024 INFLUENZA VACCINE (#1) 2025 COVID-19 VACCINE (3 - season) 2025 09/16/2020, 08/26/2020 DIABETIC EYE EXAM 04/08/2025 TSH LEVEL 07/25/2025 07/25/2024, 02/09, 06/09/2021, Additional history exists HEMOGLOBIN A1C 10/07/2025 04/08/2025, 02/09, 09/07/2021, Additional history exists POTASSIUM LEVEL 04/08/2026 04/08/2025, 07/12, 09/20/2023, Additional history exists URINE MICROALBUMIN/CREATININE RATIO 04/08/2026 04/08/2025, 09/20/2021 OSTEOPOROSIS SCREENING INITIAL (ONE-TIME) Completed 02/16/2023 SMOKING STATUS SCREENING (Once After 26 Yrs) Completed 02/16/2023 HEPATITIS A VACCINES Aged Out No long er eligible based on patient's age to complete this topic HIB VACCINES Aged Out No longer eligi ble based on patient's age to complete this topic IPV VACCINES Aged Out No longer eligi ble based on patient's age to complete this topic MENINGOCOCCAL VACCINES (ACWY) Aged Out No longer eligible based on patient's age to complete this topic MENINGOCOCCAL VACCINES (B) Aged Out N o longer eligible based on patient's age to complete this topic Medical Devices Not on file Procedures Procedure Name Priority Date/Time Associated Diagnosis Comments MICROALBUMIN/CREATINI NE RATIO, RANDOM URINE Routine 04/08/2025 10:50 AM EDT History of gestational diabetes Hypertension, essential Type 2 diabetes mellitus without complications, unspecified whether rat exterminator insulin use COMPREHENSIVE METABOLIC PANEL (CMP) Routine 04/08/2025 10:42 AM EDT History of gestational diabetes Hypertension, essential Type 2 diabetes mellitus without complications, unspecified whether snf insulin use HEMOGLOBIN A1C Routine 04/08/2025 10:42 AM EDT History of gestational diabetes Hypertension, essential Type 2 diabetes mellitus without complications, unspecified whether rat exterminator insulin use CBC AND DIFFERENTIAL Routine 04/08/2025 10:42 AM EDT History of gestational diabetes Hypertension, essential Type 2 diabetes mellitus without complications, unspecified whether snf insulin use TSH WITH REFLEX Routine 07/25/2024 11:14 AM EST Diastolic congestive heart failure, unspecified HF chronicity Hypothyroidism, unspecified type Myalgia BD DXA AXIAL (SPINE) WITH HIP Routine 02/16/2023 2:51 PM EDT Encounter for screening for osteoporosis LIPID PANEL Routine 09/07/2021 10:45 AM EDT Type 2 diabetes mellitus without complication, unspecified whether rat exterminator insulin use from Last 3 Months or Most Recently Relevant to Health Maintenance Results * Microalbumin/creatinine ratio, random urine (04/08/2025 10:50 AM EDT) URINE MICROALBUMIN <1.2 0 - 2.3 mg/dL [facility] URINE CREATININE 195 mg/dL [facility] MICROALB/CRE RATIO NOT CALCULATED 0 - 20 mg/g Cre [facility] Comment:due to Microalbumin <1.2 Urine (Urine) 04/08/2025 10: 50 AM EDT 04/08/2025 10:53 AM EDT us Akshat A Bigda DO LAB URINE ORDERABLES Final Resul t [address] [address] * (ABNORMAL) Comprehensive metabolic panel (04/08/2025 10:42 AM EDT) Pathologist [facility] SODIUM 137 133 - 146 mmol/L [facility] POTASSIUM 4.6 3.3 - 5.1 mmol/L [facility] CHLORIDE 99 96 - 108 mmol/L [facility] CO2 24 21 - 35 mmol/L [facility] BUN 23(H) 6 - 19 mg/dL [facility] CREATININE 1.10 0.5 - 1.5 mg/dL [facility] GLUCOSE 97 70 - 99 mg/dL [facility] ALBUMIN 4.1 3.9 - 4.8 g/dL [facility] TOTAL PROTEIN 7.0 6.5 - 8.0 g/dL [facility] CALCIUM 9.3 8.4 - 10.3 mg/dL [facility] ALKALINE PHOSPHATASE 41 39 - 117 U/L [facility] TOTAL BILIRUBIN 0.6 0.0 - 1.2 mg/dL [facility] AST 17 0 - 37 U/L [facility] ALT 13 0 - 40 U/L [facility] GLOBULIN 2.9 1 - 4.8 g/dL [facility] EGFR 52(L) >59 mL/min/1.7 3m2 [facility] Comment:Estimated glomerular filtration rate calculated using the CKD-EPI refit equation. ANION GAP 19 10 - 20 mmol/L [facility] Blood 04/08/2025 10:4 2 AM EDT 04/08/2025 10:47 AM EDT us Akshat A Bigda DO LAB BLOOD BKR ORDERABLES Final R esult [facility] [address] [place] [address] * (ABNORMAL) CBC and differential (04/08/2025 10:42 AM EDT) WBC 5.78 4.00 - 11.00 K/uL [facility] RBC 4.30 4.00 - 5.20 M/uL [facility] HGB 12.9 12.0 - 16.0 g/dL [facility] HCT 39.9 36.0 - 46.0 % [facility] PLT 277 150 - 450 K/uL [facility] MCV 92.8 80.0 - 100.0 fL [facility] MCH 30.0 27.0 - 31.0 pg [facility] MCHC 32.3 32.0 - 36.0 g/dL [facility] RDW 13.6 11.5 - 14.5 % [facility] MPV 10.1 8.4 - 12.0 fL [facility] NRBC 0.00 0.00 /100 WBCs [facility] ABSOLUTE NRBC 0.00 0.00 K/uL [facility] DIFF METHOD Auto [facility] NEUTS 70.9 48.0 - 76.0 % [facility] LYMPHS 14.7(L) 18.0 - 41.0 % [facility] MONOS 11.1(H) 4.0 - 11.0 % [facility] EOS 2.2 0.0 - 5.0 % [facility] BASOS 0.9 0.0 - 1.5 % [facility] Granulocytes, immature (%) 0.2 0.0 - 0.9 % [facility] ABSOLUTE NEUTS 4.10 1.92 - 7.60 K/uL [facility] ABSOLUTE LYMPHS 0.85 0.72 - 4.10 K/uL [facility] ABSOLUTE MONOS 0.64 0.16 - 1.10 K/uL [facility] ABSOLUTE EOS 0.13 0.00 - 0.50 K/uL [facility] ABSOLUTE BASOS 0.05 0.00 - 0.15 K/uL [facility] Granulocytes, immature 0.01 0.00 - 0.09 K/uL [facility] Blood 04/08/2025 10:4 2 AM EDT 04/08/2025 10:47 AM EDT us Akshat A Bigda DO LAB BLOOD BKR ORDERABLES Final R esult Performing Organization Address [facility]/ZIP Co de Phone Number [address] [address] * (ABNORMAL) Hemoglobin A1c (04/08/2025 10:42 AM EDT) HEMOGLOBIN A1C 6.8(H) 4.3 - 5.8 % [facility] Blood 04/08/2025 10:4 2 AM EDT 04/08/2025 10:47 AM EDT us Akshat A Bigda DO LAB BLOOD BKR ORDERABLES Final R esult Performing Organization Address [facility] Co de Phone Number [address] [address] * (ABNORMAL) TSH with reflex (07/25/2024 11:14 AM EST) TSH 6.74(H) 0.27 - 4.20 uIU/mL [facility] Blood 07/25/2024 11:1 4 AM EST 07/25/2024 11:16 AM EST us Akshat A Bigda DO LAB BLOOD BKR ORDERABLES Final R esult Performing Organization Address [facility] Co de Phone Number [address] [address] * BD DXA AXIAL (SPINE) WITH HIP [...] x-ray absorptiometry was performed on 02/16/2023 using [employer] A ([id number]) Clinical Indications: Osteoporosis FINDINGS: Right Femoral Neck: [...] energy x-ray absorptiometry was performed on 02/16/2023using [employer] A ([id number]) Clinical Indications: Osteoporosis FINDINGS: Right Femoral Neck: [...] (09/07/2021 10:45 AM EDT) HDL 47 mg/dL [facility] Comment: Interpretation <40 mg/dL: Low HDL cholesterol (major risk factor for CHD) Greater than or equal to 60 mg/dL: High HDL cholesterol ( negative risk factor for CHD) HDL - cholesterol is affected by a number of factors, e.g. smoking, excerise, hormones, sex and age. CHOLESTEROL 247(H) 0 - 240 mg/dL [facility] TRIGLYCERIDES 187(H) 30 - 160 mg/dL [facility] LDL 163(H) 50 - 129 mg/dL [facility] Comment: LDL levels in terms of risk for coronary heart disease: <100 mg/dL: Optimal 100-129 mg/dL: Near or above optimal 130-159 mg/dL: Borderline high 160-189 mg/dL: High >190 mg/dL: Very High CARDIAC RISK RATIO 5.3(H) 3.3 - 4.4 [facility] Blood 09/07/2021 10:4 5 AM EDT 09/07/2021 10:48 AM EDT us Akshat Jacobs DO LAB BLOOD BKR ORDERABLES Final R esult [address] [phone] from Last 3 Months or Most Recently Relevant to Health Maintenance Insurance [employer] [id number] [facility] RE[facility] [id number] [place] [id number] [facility] MEDICARE REPLACEMENT [facility] MEDICARE REPLACEMENT Care Teams Linseed Oil Press Tender Relationship Specialty Start Date End Date Akshat Jacobs DO PCP - General 03/27/17 Additional Source Comments The information contained in this document represents components of the legal health record. It is not the complete legal health record.[facility]
--- OUTSIDE RECORDS SUMMARY | 2025-04-22 16:09 | XMS_ITS | Encounter Summary ---
Author Organization [facility] Address [address] [place] [address] [address] [place] [address] Phone Care Team Providers Care Radiosonde Operator Name Role Phone Akshat Jacobs DO Primary Care Provider [phone] Encounter Details Date Type Department Care Team ([facility] st Contact Info) Description 10/06/2022 Transcribe Orders Virtual Department [address] [place] [address] Akshat Jacobs DO [address] [facility] [place] [address] [place] [address] [email or web address] Breast screening (Primary Dx) Social History Tobacco [...] documented as of this encounter Care Teams Radiosonde Operator Relationship Specialty Start Date End Date Akshat Jacobs DO [email or web address] PCP - General 03/27/17 documented as of this encounter Additional Source Comments The information contained in this document represents components of the legal health record. It is not the complete legal health record.[facility]
--- OUTSIDE RECORDS SUMMARY | 2025-04-22 16:09 | XMS_ITS | Encounter Summary ---
Author Organization [facility] Address [address] [facility] [address] [place] [address] Phone Care Team Providers Care Recreation Coordinator Name Role Phone Akshat Jacobs DO Primary Care Provider [phone] Encounter Details Date Type Department Care Team ([facility] st Contact Info) Description 08/04/2022 Transcribe Orders Virtual Department [address] [place] [address] Akshat Jacobs DO [address] [facility] [place] [address] [place] [address] [email or web address] Low back pain, unspecified back pain laterality, [...] COMPARISON: Lumbar Spine ; CT ABDOMEN/PELVIS WITH [id number] FINDINGS: ALIGNMENT: 5 mm L4-5 anterolisthesis. Lumbar [...] documented as of this encounter Care Teams Recreation Coordinator Relationship Specialty Start Date End Date Akshat Jacobs DO [email or web address] PCP - General 03/27/17 documented as of this encounter Additional Source Comments The information contained in this document represents components of the legal health record. It is not the complete legal health record.[facility]
--- OUTSIDE RECORDS SUMMARY | 2025-04-22 16:09 | XMS_ITS | Encounter Summary ---
Author Organization [facility] Address [address] [facility] [address] [place] [address] Phone Care Team Providers Care General Freight Agent Name Role Phone Akshat Jacobs Primary Care Provider [phone] Encounter Details Date Type Department Care Team (Latest Contact Info) Description 05/04/2021 Transcribe Orders Virtual Department [address] [place] [address] Bethany Kinney PA [address] [place] [address] [place] [address] Enlarged lymph nodes Social History Tobacco Use [...] documented as of this encounter Care Teams General Freight Agent Relationship Specialty Start Date End Date Akshat Jacobs DO [email or web address] PCP - General 03/27/17 documented as of this encounter Additional Source Comments The information contained in this document represents components of the legal health record. It is not the complete legal health record.[facility]
--- OUTSIDE RECORDS SUMMARY | 2025-04-22 16:10 | XMS_ITS | Encounter Summary ---
Author Organization [facility] Address [address] [place] [address] Phone Care Team Providers Care Injection Molding Process Technician Name Role Phone Akshat Jacobs DO Primary Care Provider [phone] Reason for Referral * MRI/CAT Scan - Closed Specialty Diagnoses / Procedures Referred By Bethany reed Referred To Contact Radiology Diagnoses Right flank pain Abdominal pain, unspecified abdominal location Procedures CT Abdomen/Pelvis Akshat Jacobs DO Phone: tel: fax: [email or web address] Referral ID Status Reason Start Date Expiration Date Visits Re quested Visits Authorized [id number] Closed 09/10/2019 01/15/2020 1 1 Encounter Details Date Type Department Care Team (Late st Contact Info) Description 09/10/2019 Transcribe Orders Virtual Department 30 [place] [address] Akshat Jacobs DO [address] [facility] [place] [address] [email or web address] Right flank pain (Primary Dx); Abdominal pain, [...] documented as of this encounter Care Teams Injection Molding Process Technician Relationship Specialty Start Date End Date Akshat Jacobs DO [email or web address] PCP - General 03/27/17 documented as of this encounter Additional Source Comments The information contained in this document represents components of the legal health record. It is not the complete legal health record.[facility]
--- OUTSIDE RECORDS SUMMARY | 2025-04-22 16:10 | XMS_ITS | Encounter Summary ---
Author Organization [facility] Address [address] [facility] [address] [place] [address] Phone Care Team Providers Care Joist Setter Name Role Phone Akshat Jacobs DO Primary Care Provider [phone] Encounter Details Date Type Department Care Team ([facility] st Contact Info) Description 11/29/2018 Ancillary Orders Virtual Department [address] [place] [address] Akshat Jacobs DO [address] [facility] [place] [address] [place] [address] [email or web address] Breast screening Social History Tobacco Use Types [...] tissue is almost entirely fat. POS - [id number] Narrative 12/06/2018 11:40 AM EDT Full-field digital [...] tissue is almost entirely fat. POS - [id number] Akshat Jacobs DO IMG MG EXAMS Final [...] documented as of this encounter Care Teams Joist Setter Relationship Specialty Start Date End Date Akshat Jacobs DO [email or web address] PCP - General 03/27/17 documented as of this encounter Additional Source Comments The information contained in this document represents components of the legal health record. It is not the complete legal health record.[facility]
--- OUTSIDE RECORDS SUMMARY | 2025-04-22 16:10 | XMS_ITS | Encounter Summary ---
Author Organization [facility] Address [address] [place] [address] [address] [place] [address] Phone Care Team Providers Care Spindle Carver Name Role Phone Akshat Jacobs DO Primary Care Provider [phone] Encounter Details Date Type Department Care Team ([facility] st Contact Info) Description 07/08/2019 Transcribe Orders [facility] Phleb [address] [address] Akshat Jacobs DO 179 [facility] [place] [address] [place] [address] [email or web address] Myxedema heart disease (Primary Dx) Social History [...] FREE T4 1.3 0.9 - 1.7 ng/dL [facility] Blood 07/08/2019 12:0 7 PM EST 07/08/2019 12:16 PM EST us Akshat Jacobs DO LAB BLOOD BKR ORDERABLES Final R esult [address] [address] * TSH (07/08/2019 12:07 PM EST) TSH 3.01 0.27 - 4.20 uIU/mL [facility] Blood 07/08/2019 12:0 7 PM EST 07/08/2019 12:16 PM EST us Akshat A Bigda DO LAB BLOOD BKR ORDERABLES Final R [facility] Performing Organization Address [facility] Co de Phone Number [address] [address] * (ABNORMAL) Basic metabolic panel (07/08/2019 12:07 PM EST) SODIUM 137 133 - 146 mmol/L [facility] CHLORIDE 100 96 - 108 mmol/L [facility] POTASSIUM 5.3(H) 3.3 - 5.1 mmol/L [facility] CO2 25 21 - 35 mmol/L [facility] BUN 31(H) 6 - 19 mg/dL [facility] CREATININE 0.90 0.5 - 1.5 mg/dL [facility] GLUCOSE 98 70 - 99 mg/dL [facility] CALCIUM 9.6 8.4 - 10.3 mg/dL [facility] EGFR 65 >59 mL/min/1.7 3m2 [facility] Comment:If patient is black, multiply result by 1.159. Estimated glomerular filtration rate calculated using the CKD-EPI equation. ANION GAP 17 10 - 20 mmol/L [facility] Blood 07/08/2019 12:0 7 PM EST 07/08/2019 12:16 PM EST us Akshat A Bigda DO LAB BLOOD BKR ORDERABLES Final R esult Performing Organization Address City/[facility]/ZIP Co de Phone Number [address] [address] documented in this encounter Visit Diagnoses Diagnosis Myxedema heart disease- Primary Unspecified hypothyroidism documented in this encounter Additional Health Concerns Infection Onset Date Last Indicated Resolved Time CoV-Risk 06/30/2021 06/30/2021 06/30/2021 8:35 AM EST COVID-19 06/30/2021 06/30/2021 07/21/2021 1:21 AM EST CoV-Risk 09/10/2023 09/10/2023 09/21/2023 1:23 AM EDT documented as of this encounter Care Teams Spindle Carver Relationship Specialty Start Date End Date Akshat Jacobs DO [email or web address] PCP - General 03/27/17 documented as of this encounter Additional Source Comments The information contained in this document represents components of the legal health record. It is not the complete legal health record.[facility]
--- OUTSIDE RECORDS SUMMARY | 2025-04-22 16:10 | XMS_ITS | Encounter Summary ---
Author Organization [facility] Address [address] [place], [place] [address] [place] [address] Phone Care Team Providers Care Handle Assembler Name Role Phone Akshat Jacobs DO Primary Care Provider [phone] Encounter Details Date Type Department Care Team ([place] [facility] st Contact Info) Description 03/27/2019 Transcribe Orders Virtual Department [address] [place] [address] Akshat Jacobs DO 179 [facility] [place] [address] [place] [address] [email or web address] Cough (Primary Dx) Social History Tobacco Use [...] documented as of this encounter Care Teams Handle Assembler Relationship Specialty Start Date End Date Akshat Jacobs DO [email or web address] PCP - General 03/27/17 documented as of this encounter Additional Source Comments The information contained in this document represents components of the legal health record. It is not the complete legal health record.[facility]
--- OUTSIDE RECORDS SUMMARY | 2025-04-22 16:10 | XMS_ITS | Encounter Summary ---
Author Organization [facility] Address [address] [place] [address] Phone Care Team Providers Care Entry Level Truck Driver Name Role Phone Akshat Jacobs DO Primary Care Provider [phone] Encounter Details Date Type Department Care Team ([facility] st Contact Info) Description 06/20/2019 Transcribe Orders Virtual Department [address] [place] [address] Akshat Jacobs DO 179 [facility] [address] [place] [address] [email or web address] Social History Tobacco Use Types Packs/Day Years [...] documented as of this encounter Care Teams Entry Level Truck Driver Relationship Specialty Start Date End Date Akshat Jacobs DO [email or web address] PCP - General 03/27/17 documented as of this encounter Additional Source Comments The information contained in this document represents components of the legal health record. It is not the complete legal health record.[facility]
--- OUTSIDE RECORDS SUMMARY | 2025-04-22 16:10 | XMS_ITS | Encounter Summary ---
Author Organization [facility] Address [address] [place] [address] Phone Care Team Providers Care Seasonal Recruiter Name Role Phone Akshat Jacobs DO Primary Care Provider [phone] Encounter Details Date Type Department Care Team (Late st Contact Info) Description 12/11/2019 Procedure Pass [facility], Ct Scan - [address] [address] Social History Tobacco Use Types Packs/Day Years [...] documented as of this encounter Care Teams Seasonal Recruiter Relationship Specialty Start Date End Date Akshat Jacobs DO PCP - General 10/17/17 documented as of this encounter Additional Source Comments The information contained in this document represents components of the legal health record. It is not the complete legal health record.[facility]
--- OUTSIDE RECORDS SUMMARY | 2025-04-22 16:10 | XMS_ITS | Encounter Summary ---
Author Organization [facility] Address [address] [place] [address] Phone Care Team Providers Care Doctor Assistant Name Role Phone Akshat Jacobs DO Primary Care Provider [phone] Reason for Referral * Consultation (Elective) - Closed Specialty Diagnoses / Procedures Referred By Bethany reed Referred To Contact Diagnoses Pulmonary embolism and infarction Akshat Jacobs DO Phone: tel: fax: [email or web address] [address] [place] [address] Phone: tel: Referral ID Status Reason Start Date Expiration Date Visits Re quested Visits Authorized [id number] Closed 08/03/2017 06/07/2018 93 [phone] Encounter Details Date Type Department Care Team (Late st Contact Info) Description 08/03/2017 Transcribe Orders Virtual Department [address] [place] [address] Akshat Jacobs DO 179 [facility] [place] [address] [place] [address] [email or web address] Pulmonary embolism and infarction (Primary Dx) Social [...] Date/Time Associated Diagnosis Comments AMB REFERRAL TO [facility]TICO[facility]ULATION [facility]IC Routine 08/20/2017 12:15 PM EDT Pulmonary embolism and infarction documented in this encounter Results * Ambulatory referral to [facility] Anticoagulation Clinic (08/20/2017 12:15 PM EDT) us Akshat Jacobs DO AMB [facility] REFERRALS Final Result documented in this encounter Visit Diagnoses Diagnosis Pulmonary embolism and infarction- Primary Other pulmonary embolism and infarction documented in this encounter Additional Health Concerns Infection Onset Date Last Indicated Resolved Time CoV-Risk 06/30/2021 06/30/2021 06/30/2021 8:35 AM EST COVID-19 06/30/2021 06/30/2021 07/21/2021 1:21 AM EST CoV-Risk 09/10/2023 09/10/2023 09/21/2023 1:23 AM EDT documented as of this encounter Care Teams Doctor Assistant Relationship Specialty Start Date End Date Akshat Jacobs DO PCP - General 03/27/17 documented as of this encounter Additional Source Comments The information contained in this document represents components of the legal health record. It is not the complete legal health record.[facility]
--- OUTSIDE RECORDS SUMMARY | 2025-04-22 16:10 | XMS_ITS | Encounter Summary ---
Author Organization [facility] Address [address] [place] [address] Phone Care Team Providers Care Equal Opportunity Officer Name Role Phone Akshat Jacobs DO Primary Care Provider [phone] Encounter Details Date Type Department Care Team (Late st Contact Info) Description 08/29/2017 Procedure Pass [facility], Ct Scan - [address] [address] Social History Tobacco Use Types Packs/Day Years [...] documented as of this encounter Care Teams Equal Opportunity Officer Relationship Specialty Start Date End Date Akshat Jacobs DO PCP - General 10/17/17 documented as of this encounter Additional Source Comments The information contained in this document represents components of the legal health record. It is not the complete legal health record.[facility]
--- OUTSIDE RECORDS SUMMARY | 2025-04-22 16:10 | XMS_ITS | Encounter Summary ---
Author Organization [facility] Address [address] [place] [address] [address] [place] [address] Phone Care Team Providers Care Head Tennis Coach Name Role Phone Akshat Jacobs DO Primary Care Provider [phone] Encounter Details Date Type Department Care Team ([facility] st Contact Info) Description 06/09/2021 Transcribe Orders [facility] Phleb [address] [place] [address] Akshat Jacobs DO 179 [facility] [place] [address] [place] [address] Essential hypertension, benign (Primary Dx); Crohn's disease [...] EST) WBC 5.33 4.00 - 11.00 K/uL [facility] RBC 4.37 3.72 - 5.30 M/uL [facility] HGB 12.7 11.4 - 15.9 g/dL [facility] HCT 38.0 34.2 - 46.8 % [facility] PLT 331 140 - 430 K/uL [facility] MCV 87.0 78.0 - 97.0 fL [facility] MCH 29.1 25.0 - 33.0 pg [facility] MCHC 33.4 32.0 - 36.0 g/dL [facility] RDW 14.6 11.0 - 16.0 % [facility] MPV 10.6 8.4 - 12.8 fl [facility] NRBC 0.00 0 /100 WBCs [facility] ABSOLUTE NRBC 0.00 0 K/uL [facility] DIFF METHOD Auto [facility] NEUTS 58.7 43.0 - 75.0 % [facility] LYMPHS 28.3 18.2 - 47.4 % [facility] MONOS 8.4 4.00 - 11.00 % [facility] EOS 3.6 0.0 - 8.0 % [facility] BASOS 0.8 0.0 - 2.0 % [facility] Granulocytes, immature (%) 0.2 0.0 - 0.9 % [facility] ABSOLUTE NEUTS 3.13 1.80 - 7.70 K/uL [facility] ABSOLUTE LYMPHS 1.51 1.00 - 3.10 K/uL [facility] ABSOLUTE MONOS 0.45 0.20 - 0.80 K/uL [facility] ABSOLUTE EOS 0.19 0.00 - 0.80 K/uL [facility] ABSOLUTE BASOS 0.04 0.00 - 0.09 K/uL [facility] Granulocytes, immature 0.01 0.00 - 0.05 K/uL [facility] Blood 06/09/2021 10:5 3 AM EST 06/09/2021 11:11 AM EST us Akshat A Bigda DO LAB BLOOD BKR ORDERABLES Final R esult [facility] [address] [place] [address] * Vitamin B12 (06/09/2021 10:53 AM EST) Pathologist [facility] VITAMIN B12 419 232 - 1,245 pg/mL [facility] Blood 06/09/2021 10:5 3 AM EST 06/09/2021 11:11 AM EST us Akshat A Bigda DO LAB BLOOD BKR ORDERABLES Final R esult Performing Organization Address City/[facility] Co de Phone Number [address] [address] * (ABNORMAL) 25-OH vitamin D (06/09/2021 10:53 AM EST) 25 OH VIT D (TOTAL) 26(L) 30 - 60 ng/mL [facility] Blood 06/09/2021 10:5 3 AM EST 06/09/2021 11:11 AM EST us Akshat A Bigda DO LAB BLOOD BKR ORDERABLES Final R esult Performing Organization Address [facility] Co de Phone Number [address] [address] * (ABNORMAL) C-Reactive Protein (06/09/2021 10:53 AM EST) C REACTIVE PROTEIN 7.7(H) 0.0 - 4.0 mg/L [facility] Blood 06/09/2021 10:5 3 AM EST 06/09/2021 11:11 AM EST us Akshat A Bigda DO LAB BLOOD BKR ORDERABLES Final R esult Performing Organization Address [facility] Co de Phone Number [address] [address] * (ABNORMAL) TSH (06/09/2021 10:53 AM EST) TSH 6.37(H) 0.27 - 4.20 uIU/mL [facility] Blood 06/09/2021 10:5 3 AM EST 06/09/2021 11:11 AM EST us Akshat A Bigda DO LAB BLOOD BKR ORDERABLES Final R esult [address] [address] * (ABNORMAL) Hemoglobin A1c (06/09/2021 10:53 AM EST) HEMOGLOBIN A1C 6.5(H) 4.3 - 5.8 % [facility] Blood 06/09/2021 10:5 3 AM EST 06/09/2021 11:11 AM EST us Akshat A Bigda DO LAB BLOOD BKR ORDERABLES Final R esult Performing Organization Address City/[facility] Co de Phone Number [address] [address] * (ABNORMAL) Comprehensive metabolic panel (06/09/2021 10:53 AM EST) SODIUM 136 133 - 146 mmol/L [facility] POTASSIUM 4.7 3.3 - 5.1 mmol/L [facility] CHLORIDE 102 96 - 108 mmol/L [facility] CO2 20(L) 21 - 35 mmol/L [facility] BUN 25(H) 6 - 19 mg/dL [facility] CREATININE 1.40 0.5 - 1.5 mg/dL [facility] GLUCOSE 115(H) 70 - 99 mg/dL [facility] ALBUMIN 4.2 3.9 - 4.8 g/dL [facility] TOTAL PROTEIN 7.3 6.5 - 8.0 g/dL [facility] CALCIUM 9.5 8.4 - 10.3 mg/dL [facility] ALKALINE PHOSPHATASE 53 39 - 117 U/L [facility] TOTAL BILIRUBIN 0.4 0.0 - 1.2 mg/dL [facility] AST 27 0 - 37 U/L [facility] ALT 16 0 - 40 U/L [facility] GLOBULIN 3.1 1 - 4.8 g/dL [facility] EGFR 40(L) >59 mL/min/1.7 3m2 [facility] Comment:Estimated glomerular filtration rate calculated using the CKD-EPI refit equation. ANION GAP 19 10 - 20 mmol/L [facility] Blood 06/09/2021 10:5 3 AM EST 06/09/2021 11:11 AM EST us Akshat Jacobs DO LAB BLOOD BKR ORDERABLES Final R esult Performing Organization Address City/State/[facility] Co de Phone Number [address] [address] documented in this encounter Visit Diagnoses Diagnosis [...] documented as of this encounter Care Teams Head Tennis Coach Relationship Specialty Start Date End Date Akshat Jacobs DO [email or web address] PCP - General 03/27/17 documented as of this encounter Additional Source Comments The information contained in this document represents components of the legal health record. It is not the complete legal health record.[facility]
--- OUTSIDE RECORDS SUMMARY | 2025-04-22 16:10 | XMS_ITS | Encounter Summary ---
Author Organization [facility] Address [address] [place] [address] Phone Care Team Providers Care Slubber Operator Name Role Phone Akshat Jacobs DO Primary Care Provider [phone] Reason for Referral * Consultation (Elective) - Closed Specialty Diagnoses / Procedures Referred By Bethany reed Referred To Contact Diagnoses 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, unspecified chronicity Pulmonary embolism, other, unspecified chronicity, unspecified whether acute cor pulmonale present Akshat Jacobs DO Phone: tel: fax: [email or web address]:[email or web address] [facility] [address] [place] [address] Phone: tel: Referral ID Status Reason Start Date Expiration Date Visits Re quested Visits Authorized [id number] Closed 06/15/2021 06/15/2022 1 1 Encounter Details Date Type Department Care Team (Late st Contact Info) Description 06/15/2021 Transcribe Orders Virtual Department [address] [place] [address] Akshat Jacobs DO 179 [place] [address] [email or web address] 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, [...] Associated Diagnoses Order Schedule Ambulatory referral to [facility] Anticoagulation [facility] Outpatient Referral Routine Deep vein [...] documented as of this encounter Care Teams Slubber Operator Relationship Specialty Start Date End Date Akshat Jacobs DO [email or web address] PCP - General 03/27/17 documented as of this encounter Additional Source Comments The information contained in this document represents components of the legal health record. It is not the complete legal health record.[facility]
--- OUTSIDE RECORDS SUMMARY | 2025-04-22 16:10 | XMS_ITS | Encounter Summary ---
Author Organization [facility] Address [address] [place] [address] Phone Care Team Providers Care Mineral Ore Processing Labourer Name Role Phone Akshat Jacobs DO Primary Care Provider [phone] Reason for Referral * MRI/CAT Scan - Closed Specialty Diagnoses / Procedures Referred By Bethany reed Referred To Contact Radiology Diagnoses Nonintractable headache, unspecified chronicity pattern, unspecified headache type Postural dizziness with presyncope Neck pain Procedures CT Head Mirian Dumas CNP Phone: tel: fax: [email or web address] Referral ID Status Reason Start Date Expiration Date Visits Re quested Visits Authorized [id number] Closed 08/29/2017 08/29/2018 1 1 Encounter Details Date Type Department Care Team (Latest Contact Info) Description 08/29/2017 Ancillary Orders Virtual Department [address] [place] [address] Mirian Dumas CNP [address] [place] [address] [email or web address] Nonintractable headache, unspecified chronicity pattern, unspecified headache [...] months POS - [id number] Mirian Chandni Alesia TRAFFIC OPERATIONS MANAGER IMG XR SPINE Final Resul t * [...] Stoner on 09/03/2017 3:07 PM Mirian Dumas TRAFFIC OPERATIONS MANAGER IMG CT HEAD/NECK Final Resu lt documented [...] documented as of this encounter Care Teams Mineral Ore Processing Labourer Relationship Specialty Start Date End Date Akshat Jacobs DO [email or web address] PCP - General 03/27/17 documented as of this encounter Additional Source Comments The information contained in this document represents components of the legal health record. It is not the complete legal health record.[facility]
--- OUTSIDE RECORDS SUMMARY | 2025-04-22 16:10 | XMS_ITS | Encounter Summary ---
Author Organization [facility] Address [address] [facility] [address] [place] [address] Phone Care Team Providers Care Materials Coordinator Name Role Phone Akshat Jacobs DO Primary Care Provider [phone] Encounter Details Date Type Department Care Team ([facility] st Contact Info) Description 11/19/2023 Transcribe Orders Virtual Department [address] [place] [address] Akshat Jacobs DO 179 [facility] [place] [address] [place] [address] [email or web address] Encounter for screening for osteoporosis (Primary [...] Primary documented in this encounter Care Teams Materials Coordinator Relationship Specialty Start Date End Date Akshat Jacobs DO [email or web address] PCP - General 03/27/17 documented as of this encounter Additional Source Comments The information contained in this document represents components of the legal health record. It is not the complete legal health record.[facility]
--- OUTSIDE RECORDS SUMMARY | 2025-04-22 16:10 | XMS_ITS | Encounter Summary ---
Author Organization [facility] Address [address] [place] [address] Phone Care Team Providers Care Passenger Coach Driver Name Role Phone Akshat Jacobs DO Primary Care Provider Reason for Referral * Outpatient Procedure - Closed Specialty Diagnoses / Procedures Referred By Bethany reed Referred To Contact Diagnoses Other forms of dyspnea Procedures Adult Echo TTE Akshat Jacobs DO Phone: tel: fax: mailto:[email or web address] Referral ID Status Reason Start Date Expiration Date Visits Re quested Visits Authorized [id number] Closed 01/11/2019 03/12/2019 1 1 Encounter Details Date Type Department Care Team ([facility] st Contact Info) Description 12/09/2018 Transcribe Orders Virtual Department [address] [place] [address] Akshat Jacobs DO [address] [facility] [place] [address] Other forms of dyspnea (Primary Dx) Social [...] documented as of this encounter Care Teams Passenger Coach Driver Relationship Specialty Start Date End Date Akshat Jacobs DO [email or web address] PCP - General 03/27/17 documented as of this encounter Additional Source Comments The information contained in this document represents components of the legal health record. It is not the complete legal health record.[facility]
--- OUTSIDE RECORDS SUMMARY | 2025-04-22 16:10 | XMS_ITS | Encounter Summary ---
Author Organization [facility] Address [address] [place] [address] Phone Care Team Providers Care Life Tester [employer] Name Role Phone Akshat Jacobs DO Primary Care Provider [phone] Reason for Referral * Consultation (Routine) - Closed Specialty Diagnoses / Procedures Referred By Bethany reed Referred To Contact Diagnoses Pulmonary embolism, other, unspecified chronicity, unspecified whether acute cor pulmonale present 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, unspecified chronicity Akshat Jacobs DO Phone: tel: fax: mailto:[email or web address] [facility] [address] [place] [address] Phone: tel: Referral ID Status Reason Start Date Expiration Date Visits Re quested Visits Authorized [id number] Closed 08/02/2020 08/02/2021 1 1 Encounter Details Date Type Department Care Team (Late st Contact Info) Description 08/02/2020 Transcribe Orders Virtual Department [address] [place] [address] Akshat Jacobs DO [address] [facility] [place] [address] [email or web address] Pulmonary embolism, other, unspecified chronicity, unspecified whether [...] Date/Time Associated Diagnosis Comments AMB REFERRAL TO [facility] Routine 08/23/2020 12:02 PM EDT Pulmonary embolism, other, unspecified chronicity, unspecified whether acute cor pulmonale present 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, unspecified chronicity documented in this encounter Results * Ambulatory referral to [facility] Anticoagulation Clinic (08/23/2020 12:02 PM EDT) us Akshat Jacobs DO AMB [facility] REFERRALS Final Result documented in this [...] documented as of this encounter Care Teams Life Tester [employer] Relationship Specialty Start Date End Date Akshat Jacobs DO PCP - General 03/27/17 documented as of this encounter Additional Source Comments The information contained in this document represents components of the legal health record. It is not the complete legal health record.[facility]
--- OUTSIDE RECORDS SUMMARY | 2025-04-22 16:10 | XMS_ITS | Encounter Summary ---
Author Organization [facility] Address [address] [place] [address] Phone Care Team Providers Care Receiving Checker Name Role Phone Akshat Jacobs DO Primary Care Provider [phone] Encounter Details Date Type Department Care Team (Late st Contact Info) Description 04/20/2021 Procedure Pass [address] [address] Social History Tobacco Use Types Packs/Day Years [...] documented as of this encounter Care Teams Receiving Checker Relationship Specialty Start Date End Date Akshat Jacobs DO PCP - General 10/17/17 documented as of this encounter Additional Source Comments The information contained in this document represents components of the legal health record. It is not the complete legal health record.[facility]
--- OUTSIDE RECORDS SUMMARY | 2025-04-22 16:10 | XMS_ITS | Encounter Summary ---
Author Organization [facility] Address [address] [place] [address] [address] [place] [address] Phone Care Team Providers Care Wood Box Maker Name Role Phone Akshat Jacobs Primary Care Provider [phone] Encounter Details Date Type Department Care Team (Latest Contact Info) Description 04/30/2017 Transcribe Orders [facility] Phleb Main [address] [place] [address] Mirian Dumas, FARMER GENERAL [address] [place] [address] [email or web address] History of decreased renal function (Primary Dx) [...] Procedure Name Priority Date/Time Associated Diagnosis Comments CREATININE WITH ESTIMATED GLOMERULAR FILTRATION RATE (EGFR) Routine 04/30/2017 12:29 PM EST History of decreased renal function BUN Routine 04/30/2017 12:29 PM EST History of decreased renal function documented in this encounter Results * Creatinine/eGFR (04/30/2017 12:29 PM EST) CREATININE 0.90 0.5 - 1.5 mg/dL [facility] EGFR >60 >60 mL/min/1.7 3m2 [facility] Comment:Abnormal if <60. If patient is -Japanese, multiply the result by 1.21. Blood 04/30/2017 12:2 9 PM EST 04/30/2017 12:34 PM EST [employer] [facility] LAB BLOOD BKR ORDERABLES Ed ited Result - Final Performing Organization Address City/[facility]/ZIP Co de Phone Number [address] [address] * BUN (04/30/2017 12:29 PM EST) BUN 18 6 - 19 mg/dL [facility] Blood 04/30/2017 12:2 9 PM EST 04/30/2017 12:34 PM EST [employer] [facility] LAB BLOOD BKR ORDERABLES Ed ited Result - Final Performing Organization Address City/[facility]/ZIP Co de Phone Number [address] [address] documented in this encounter Visit Diagnoses Diagnosis History of decreased renal function- Primary documented in this encounter Additional Health Concerns Infection Onset Date Last Indicated Resolved Time CoV-Risk 06/30/2021 06/30/2021 06/30/2021 8:35 AM EST COVID-19 06/30/2021 06/30/2021 07/21/2021 1:21 AM EST CoV-Risk 09/10/2023 09/10/2023 09/21/2023 1:23 AM EDT documented as of this encounter Care Teams Wood Box Maker Relationship Specialty Start Date End Date Akshat Jacobs DO PCP - General 03/27/17 documented as of this encounter Additional Source Comments The information contained in this document represents components of the legal health record. It is not the complete legal health record.[facility]
--- OUTSIDE RECORDS SUMMARY | 2025-04-22 16:10 | XMS_ITS | Encounter Summary ---
Author Organization [facility] Address [address] [place] [id number] Phone Care Team Providers Care Qualified Craft Worker Electrician Name Role Phone Akshat Jacobs DO Primary Care Provider [phone] Encounter Details Date Type Department Care Team (Late st Contact Info) Description 10/06/2022 Procedure [facility], [facility] [address] [place] [address] Social History Tobacco Use Types Packs/Day Years [...] documented as of this encounter Care Teams Qualified Craft Worker Electrician Relationship Specialty Start Date End Date Akshat Jacobs DO PCP - General 03/27/17 documented as of this encounter Additional Source Comments The information contained in this document represents components of the legal health record. It is not the complete legal health record.[facility]
== END 2025-04-22 13:22 | disposition home or self-care (01) ==
LOC: HO.XRAY 13:21
PROVIDERS: PCP Internal Medicine; Visit Provider Internal Medicine
DX: M25.551 Pain in right hip (principal); M25.552 Pain in left hip
CPT/HCPCS: 73521

== ENCOUNTER → 2025-04-22 13:27 | Outpatient (BNV) | payer OTHER, SELFPAY | PROVIDERS: PCP Internal Medicine; Visit Provider Radiology Diagnostic Ultrasound | DX: M25.551 Pain in right hip (principal) | CPT/HCPCS: 73521 ==